=== PATIENT | female | born 1950 | race Caucasian/White ===

== ENCOUNTER → 2017-01-23 | Outpatient (REF) | payer MEDICARE, OTHER ==
[~2017-01-23] MED LIST: B12-1CHW PO; CALCTAB75 PO; DOXY75CA3 PO; KEFL500C7 PO; LEVO75TA4 PO; MULTCAP PO
[2017-01-23 19:35] LABS: BLOOD UREA NITROGEN 16 MG/DL (7-18); CREATININE FOR GFR 0.73 MG/DL (0.55-1.02); GLOMERULAR FILTRATION RATE > 60.0 (>45)
== END ==
LOC: M LABDRAW1 17:15
PROVIDERS: ATTEND Emergency Medicine
DX: D38.1 Neoplasm of uncertain behavior of trachea, bronchus and lung (principal)

== ENCOUNTER → 2017-02-07 | Outpatient (REF) | payer MEDICARE, OTHER ==
[2017-02-07 17:36] LABS: INR 0.91
== END ==
LOC: M LAB REF 16:55
PROVIDERS: ATTEND Internal Medicine Pulmonary Disease
DX: Z01.812 Encounter for preprocedural laboratory examination (principal); R91.8 Other nonspecific abnormal finding of lung field; Z79.899 Other long term (current) drug therapy

== ENCOUNTER → 2017-02-19 | Outpatient (CLI) | payer MEDICARE, OTHER ==
[~2017-02-19] MED LIST changes: +LIDOCAINE 1% MDV 20ML VIAL As Ordered ONE
--- NOTE | 2017-02-21 16:48 | REP ---
CT GUIDED RIGHT UPPER LOBE LUNG BIOPSY: The procedure was performed under the direct supervision of Dr. Deluca. The patient has a history of a large spiculated mass in the right apex measuring 7.1 x 6.2 cm seen on a previous CAT scan performed at [facility] on 01/25/2017. The risks and benefits of the procedure were explained to the patient and informed consent was obtained. The right upper lobe lung mass was localized using CT guidance. After the first scan to localize the mass was performed the patient became very claustrophobic and had to be taken out of the scanner. She stated that she would be unable to complete the procedure. The procedure was then discontinued. IMPRESSION: The patient was unable to complete the biopsy due to claustrophobia. Reviewed by ADOLFO Fernandez 02/21/2017 04:57 PEdited and Signed by Yayo Deluca MD 02/21/2017 07:53 P
== END | disposition home or self-care (01) ==
LOC: M RADPRO 09:15
PROVIDERS: ATTEND Internal Medicine Pulmonary Disease
DX: R91.8 Other nonspecific abnormal finding of lung field (principal); E03.9 Hypothyroidism, unspecified; F17.290 Nicotine dependence, other tobacco product, uncomplicated

== ENCOUNTER → 2017-03-15 | Outpatient (CLI) | payer MEDICARE, OTHER ==
[~2017-03-15] MED LIST changes: +ALPR0.25 PO; +FLUO20CA19 PO; +KEFL500C17 PO; -KEFL500C7 PO; +OXYC1TAB23 PO; +VITA1CAP7 PO
--- NOTE | 2017-03-15 10:27 | REP ---
PA CHEST X-RAY: Single view. HISTORY: The patient is status post needle biopsy right upper lobe lung mass. FINDINGS: There is a large paramediastinal mass on the right in the upper lung zone. There is no evidence of pneumothorax. The lung ashford are otherwise clear. IMPRESSION: Large mass in the right upper lung zone. No pneumothorax seen. Signed by Ralph Mccray MD 03/15/2017 05:10 P
--- NOTE | 2017-03-15 16:31 | REP ---
CT GUIDED RIGHT UPPER LOBE LUNG BIOPSY: The patient has a history of a large spiculated mass in the right apex measuring 7.1 x 6.2 cm seen on a previous CT scan performed at [facility] on 01/25/2017. A biopsy was attempted on 02/19/2017, however, the patient was unable to tolerate being in the scanner. The patient was referred back for biopsy. The risks and benefits of the procedure were explained to the patient and informed consent was obtained. The right upper lobe lung nodule was localized using CT guidance. The skin was prepped and draped in a sterile fashion. 1% lidocaine was used as a local anesthetic. Using CT guidance a 19/20-gauge coaxial needle biopsy system was inserted and advanced into the mass. Five core biopsy samples were obtained and sent to the lab. The patient tolerated the procedure well and there were no immediate complications. After the appropriate amount of monitored convalescence, the patient was discharged from the department. Reviewed by ADOLFO Fernandez 03/15/2017 04:40 PEdited and Signed by Ralph Mccray MD 03/15/2017 04:53 P
== END ==
LOC: M RADPRO 08:38
PROVIDERS: ATTEND Internal Medicine Pulmonary Disease
DX: C34.11 Malignant neoplasm of upper lobe, right bronchus or lung (principal); E03.9 Hypothyroidism, unspecified; Z79.899 Other long term (current) drug therapy; Z88.2 Allergy status to sulfonamides; Z87.891 Personal history of nicotine dependence

== ENCOUNTER → 2017-03-28 | Outpatient (CLI) | payer MEDICARE, OTHER ==
[~2017-03-28] MED LIST changes: -LIDOCAINE 1% MDV 20ML VIAL As Ordered ONE
== END ==
LOC: M PLARAD 09:35
PROVIDERS: ATTEND Internal Medicine Pulmonary Disease
DX: C34.11 Malignant neoplasm of upper lobe, right bronchus or lung (principal)

== ENCOUNTER → 2017-04-10 | Outpatient (CLI) | payer MEDICARE, OTHER ==
--- NOTE | 2017-04-11 19:18 | REP ---
Whole body PET CT scan: Pathology report of a CT guided needle biopsy of a large right upper lobe paramediastinal long mass identified adenocarcinoma. Whole body PET CT scanning is performed from skull base to the upper thighs. Neck and supraclavicular areas: There are no hypermetabolic foci. Chest: The large right paramediastinal long mass is hypermetabolic with a standard uptake value of 19.6. In addition, there is a hypermetabolic precarinal lymph node with a standard uptake value of 7.1. This node is enlarged with a diameter of 1.5 cm. Additionally, there is hypermetabolic uptake in a right hilar node with a standard uptake value of 4.9. This node is enlarged with a diameter of 1.0 cm. In addition , there is a hypermetabolic focus medially in the right middle lobe in the right infrahilar zone with a standard uptake value of 5.9. Abdomen, pelvis and upper thighs: There are no hypermetabolic foci. Specifically there are no adrenal or hepatic foci. Impression: The patient's known large right lung paramediastinal mass is hypermetabolic. There are two hypermetabolic mediastinal nodes. There is an hypermetabolic nodule in the right middle lobe. The study is performed with 10 mCi of F 18 FDG. Signed by Yayo Weiner MD 04/11/2017 07:10 P
== END ==
LOC: M PLARAD 10:28
PROVIDERS: ATTEND Internal Medicine Pulmonary Disease
DX: C34.11 Malignant neoplasm of upper lobe, right bronchus or lung (principal)
CPT/HCPCS: 78815; A9552

== ENCOUNTER → 2017-04-16 | Outpatient (REF) | payer MEDICARE, OTHER ==
[2017-04-16 16:17] LABS: INR 0.94
== END ==
LOC: M LAB REF 15:05
PROVIDERS: ATTEND Internal Medicine Medical Oncology
DX: C34.90 Malignant neoplasm of unspecified part of unspecified bronchus or lung (principal)

== ENCOUNTER → 2017-04-18 | Outpatient (CLI) | payer MEDICARE, OTHER ==
--- NOTE | 2017-04-19 09:52 | REP ---
MR BRAIN WITHOUT AND WITH CONTRAST: HISTORY: Lung cancer. CONTRAST: ProHance 14 mL. COMPARISON: 02/16/2009 There are no areas of abnormal signal intensity in the brain. There is no intraparenchymal hemorrhage, infarct, mass or midline shift. The sella turcica is partially empty. There is no abnormal enhancement. The ventricular system is normal in appearance. There is no extracerebral collection. Mucosal thickening is present in the sphenoid sinus. IMPRESSION: There is no intracranial lesion. Signed by Gerry Navarro MD 04/19/2017 09:54 A
== END ==
LOC: M RAD 16:55
PROVIDERS: ATTEND Internal Medicine Medical Oncology
DX: C34.90 Malignant neoplasm of unspecified part of unspecified bronchus or lung (principal)
CPT/HCPCS: 70553; A9576

== ENCOUNTER → 2017-05-03 | Outpatient (CLI) | payer MEDICARE, OTHER ==
--- NOTE | 2017-05-04 21:38 | RADONC ---
RADIATION ONCOLOGY CONSULTATION NOTE DATE: 05/03/2017 CHART NUMBER: [id number] DIAGNOSIS: Right lung cancer. STAGE: IIIB, T4N2M0. ECOG PERFORMANCE STATUS: 0 CONSULTATION NOTE: Ms. 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 HISTORY OF PRESENT ILLNESS: The patient's history dates back to earlier this year when in November or so she was in [place] and fell, hurting her right shoulder. She returned in December from [place] and was sent for physical therapy for what was thought to be traumatic injury of her right shoulder. Apparently an x-ray was undertaken which showed a lesion in the right apex of her lung. On 01/[address] the patient underwent a CT scan of the thorax which revealed a 7.1 x 6.2 cm spiculated large right apical mass. There was also adjacent continuous adenopathy in the right paratracheal, precarinal and hilar region. There was a question of a left adrenal nodule which measured 1.9 cm x 1.2 cm. On 03/15/[address]-guided right upper lobe mass biopsy and pathology revealed fragments of malignant cells consistent with non-small cell lung carcinoma favoring an adenocarcinoma. ROS1 gene rearrangement was found to be negative. The ALK gene rearrangement was negative. Study for PD-L1 (Keytruda) showed 90% expression. A PET scan was done on 04/11/2017 which confirmed hypermetabolic uptake in the large right paramediastinal mass with an SUV value of 19.6. There was also hypermetabolic uptake in a precarinal region as well as in the right hilar region. There was a second focus of malignancy with hypermetabolic activity measuring 5.9 in the right middle lobe. The patient was seen by Dr. Lee in medical oncology and is now being referred to us for consideration of definitive external beam radiation. Again, a pulmonary function test was done and showed an FEV-1 of 2.19. PAST MEDICAL HISTORY The patient's past medical history is positive for a herniorrhaphy in 2004 and hypothyroidism. ALLERGIES: 1. The patient is allergic to SULFA drugs. SOCIAL HISTORY: The patient has smoked one pack of cigarettes per day for 45 years. She does not abuse alcohol. FAMILY HISTORY: The patient's family history is positive for a mother with leukemia. REVIEW OF SYSTEMS: The patient's review of systems is positive for anxiety as well as some decreased energy and generalized weakness in her arms and legs. She says she gets a little short of breath when she goes upstairs. She reports that she has some loss of appetite and has lost a little weight. PHYSICAL EXAMINATION: The patient is a well-developed, well-nourished white female in no acute distress. HEENT exam is normocephalic, atraumatic. Extraocular movements are intact. There is no palpable cervical, supraclavicular, infraclavicular, axillary, or inguinal lymphadenopathy present. Lungs are clear to auscultation and percussion. Heart has a regular rate and rhythm. Abdomen is benign with no hepatosplenomegaly, masses, or tenderness. Skeletal examination reveals no tenderness to pressure or percussion of the bony skeleton. Extremities reveal no clubbing, cyanosis, or edema. Neurologic exam is grossly intact, as is the remainder of the physical examination. IMAGING STUDIES: I have personally reviewed the patient's PET CT scan done 04/11/2017, which shows the above findings of hypermetabolic activity. ASSESSMENT: Clearly, the patient is a candidate for external beam radiation therapy and I have so informed her. I have discussed with the patient in detail the potential benefits as well as possible acute and chronic sequelae of external beam radiation therapy. We have discussed logistics of treatment planning, simulation and subsequent fractionated daily radiation treatments. I have scheduled the patient for the next available simulation slot and radiation treatments will begin subsequently. Thank you for allowing us to participate in the care of this very pleasant woman. If I could be of any further assistance or provide you with any information, please feel free to contact me at anytime. cc: MD Milady Duarte PA A. Melynne Youngblood, MD
== END ==
LOC: M ONCR 08:53
PROVIDERS: ATTEND Radiology Radiation Oncology
DX: C34.90 Malignant neoplasm of unspecified part of unspecified bronchus or lung (principal)

== ENCOUNTER → 2017-05-04 | Outpatient (CLI) | payer MEDICARE, OTHER ==
--- NOTE | 2017-05-04 11:43 | REP ---
NUCLEAR LUNG DIFFERENTIAL VENTILATION AND PERFUSION SCAN: Following the intravenous administration of 1.0 mCi of technetium-99m tagged MAA and the inhalation of 2 mCi of technetium-99m DTPA aerosol multiple images of the lungs are obtained in the anterior and posterior projections. Scattered subsegmental matching ventilation and perfusion defects are seen in the right lung with no areas of V/Q mismatch. Differential counts were obtained in the upper, middle, and lower thirds of each lung. The mean perfusion of the left lung is 51.2% and of the right lung 48.8%. The mean ventilation of the left lung is 48.2% and of the right lung is 41.8%. Signed by Yayo Deluca MD 05/04/2017 11:58 A
== END ==
LOC: M RAD 07:56
PROVIDERS: ATTEND Radiology Radiation Oncology
DX: C34.90 Malignant neoplasm of unspecified part of unspecified bronchus or lung (principal)
CPT/HCPCS: 78598; A9540; A9567

== ENCOUNTER 2017-05-07 07:56 | Day surgery (SDC) | payer MEDICARE, OTHER ==
--- NOTE | 2017-05-06 07:03 | HPE ---
DATE OF ADMISSION: 05/07/2017 HISTORY AND CHIEF COMPLAINT: Mrs. Kay is a 67-year-old lady who has had progressive drooping of upper eyelids over several days. This is affecting her vision and visual field. She is being admitted to have levator aponeurosis resection, advancement and reattachment with blepharoplasty of both upper eyelids under local anesthetic with monitored sedation. PAST OCULAR HISTORY: Please see history of present illness. Blepharitis, nuclear cataracts, dry eye syndrome, borderline open glaucoma. PAST MEDICAL HISTORY AND OPERATIVE MEDICAL EVALUATION AND ASSESSMENT: Please see the report by REID Avelar. Hypothyroid, malignant neoplasm of right upper lobe of lung. MEDICATIONS: Please refer to the report by Milady Meyer - fluoxetine - Xanax - oxycodone/acetaminophen - vitamin D - levothyroxine ALLERGIES: Please refer to the medical report, SULFA. FAMILY HISTORY: Noncontributory with respect to eye disease. SOCIAL HISTORY: Nonsmoker. EXAMINATION: Vision with current glasses: Right eye: 20/40 - 1, left eye: 20/40 -2. Intraocular pressure by Goldmann tonometry: Right eye: 11 mmHg. Left eye: 12 mmHg. Pupils: Both eyes: Round, regular and reactive to light. Extraocular movements: Full. External examination: Use of frontalis muscles muscle++. Myogenic ptosis of both eyes. Marginal reflex distance: Right eye: 1 mm, left eye: 0.5 mm. Levator function: Both eyes: 12 mm. No lid lagophthalmos present. Involutional dermatochalasis upper eyelids both eyes: Margin to brow skin measurement: Both eyes: 32 mm. Slit lamp examination: Cornea: Both eyes: 1+ superficial punctate keratitis. Anterior chamber: Both eyes: Normal. Lens: Both eyes: 1+ nuclear scleotic cataract. Visual field ptosis, superior visual field: Untaped ptosis visual field right eye: 40-45 degrees superior visual field loss, left eye: 40-45 degrees superior visual field loss. Ptosis visual field taped: Both eyes: Full superior visual field. IMPRESSION: 1. Myogenic ptosis upper eyelids both eyes affecting vision and visual field. 2. Involutional dermatochalasis upper eyelids both eyes. PLAN: I discussed the findings with Mrs. Kay. I explained to her that the levator muscle and aponeurosis is degenerating, which is causing the upper eyelid to droop worse on the left eye than on the left. This is interfering with her vision and visual field. In addition to this, the excess skin on dermatochalasis is exacerbating the droop of the upper eyelids. I recommended a levator aponeurosis resection, advancement and reattachment with a blepharoplasty of both upper eyelids. I explained to Mrs. Kay the procedure, benefit, expected outcomes, risks and alternatives to surgery. I mentioned that the risk of surgery includes but is not limited to surgery is not guaranteed, bleeding, infection, inflammation, scarring, over correction, under correction, recurrence , injury to the globe or the orbit causing impaired vision and eye movement. Mrs. Kay elected to have the said surgery performed. I obtained an informed consent. I advised her to stop any aspirin type products and nonsteroidal anti-inflammatory medications 1 week preoperatively. REID Avelar and her primary care physician will recommend other preoperative and postoperative medications. CHRISS
[~2017-05-07] VITALS: Ht 162.6 cm; Wt 69.4 kg
[2017-05-07] MEDS ORDERED: LR 1,000 ML IV ONE (08:00)
[2017-05-07] MEDS ORDERED: dexameTHASONE 4 MG/ML 1ML VIAL (J1100) IV ONE (08:00)
[2017-05-07] MEDS ORDERED: ACETAMINOPHEN TAB 650MG DOSE (2X325MG) PO PRN (08:15)
[2017-05-07] MEDS ORDERED: TOBRADEX OPHTH OINT 3.5 GM As Ordered ONE (09:27)
[2017-05-07] MEDS ORDERED: LIDOCAINE W/EPINEPHRINE 1% 20ML VIAL As Ordered ONE (09:27)
[2017-05-07] MEDS ORDERED: CIPROFLOXACIN 0.3% OPHTH OINTMENT As Ordered ONE (09:27)
[2017-05-07] MEDS ORDERED: BUPIVACAINE 0.75% 10 ML VIAL As Ordered ONE (09:28)
[2017-05-07] MEDS ORDERED: POVIDONE-IODINE 5% OPHTH PREP SOL 30ML As Ordered ONE (09:28)
[2017-05-07] MEDS ORDERED: HYALURONIDASE 200 UNITS/ML VIAL (J3470) As Ordered ONE (09:28)
[2017-05-07] MEDS ORDERED: LIDOCAINE 2% INJ 100 MG/5 ML SDV (FOR ANES.) As Ordered ONE (09:43)
[2017-05-07] MEDS ORDERED: PROPOFOL 200 MG/20 ML VIAL As Ordered ONE (09:43)
[2017-05-07] MEDS ORDERED: fentaNYL 100 MCG/2 ML INJECTION (J3010) As Ordered ONE (09:43)
[2017-05-07] MEDS ORDERED: MIDAZOLAM INJ 2 MG/2 ML VIAL (J2250) As Ordered ONE (09:43)
[2017-05-07] MEDS ORDERED: SODIUM BICARBONATE 4.2% INJ 10 ML SYRINGE As Ordered ONE (10:21)
[2017-05-07] MEDS ORDERED: TETRACAINE 0.5% OPHTH SOLN 4ML As Ordered ONE (10:41)
--- NOTE | 2017-05-07 12:38 | RO ---
DATE OF PROCEDURE: 05/07/2017 SURGEON: Amador Spivey MD ARMORING MACHINE OPERATOR: PREOPERATIVE DIAGNOSIS: 1. Involutional ptosis upper eyelid both eyes, affecting vision and visual field. 2. Involutional dermatochalasis upper eyelid both eyes. POSTOPERATIVE DIAGNOSIS: 1. Involutional ptosis upper eyelid both eyes, affecting vision and visual field. 2. Involutional dermatochalasis upper eyelid both eyes, marked fatty infiltration of levator muscle, Herings phenomenon positive, thining of aponeurosis ANESTHESIA: Local with monitored sedation. OPERATIVE PROCEDURE: 1. Levator aponeurosis resection, advancement and reattachment of upper eyelid both eyes. 2. Blepharoplasty upper eyelid both eyes. DESCRIPTION OF OPERATION: The patient was brought into the operating room and positioned appropriately. A surgical marking pen was used to monika the upper lid crease height at 9 mm using a pair of calipers and then the upper incision line was marked leaving 20 mm of skin from the eyebrow to the lash line. After adequate sedation, local anesthetic consisting of Xylocaine 1% mixed 50/50 with Marcaine 0.75% and epinephrine 1:200,000 with 0.5 mL of 8.4% sodium bicarbonate and 200 units of Vitrase per 10 mL of local anesthetic, 2.5 mL was injected subcutaneously along the incision lines and superior border of the tarsus of both upper eyelids. The full face was prepped with Betadine and draped in the usual sterile manner. Topical tetracaine 0.5% eye drops were instilled into both eyes. A #6-0 silk traction suture was placed at the lid margin just nasal to the pupils and both upper eyelids were retracted inferiorly. Starting with the right upper eyelid then followed by the left upper eyelid, the skin incision was made with a #15 blade. Good hemostasis was ensured throughout the procedure using bipolar cautery. The orbicularis muscle was identified and incised at the temporal margin and then dissected down to the suborbicularis plane. The myocutaneous flap was then excised from temporal to medial. The orbital septum was identified and incised just inferior to the superior orbital rim and the incision was extended medially and laterally. The medial and central orbital fat pads were identified and retracted to reveal the levator muscle and aponeurosis which was detached from its normal position on the superior tarsus. The levator muscle had marked fatty infiltration. The aponeurosis was thinned. The superior surface of the tarsus was exposed. A double-armed 5-0 nylon suture was used to reattach the levator aponeurosis to the tarsus. The suture was tied temporarily. The patient was sat up and the lid margin contour and marginal reflex distance was checked for both upper eyelids. The 5-0 nylon suture was adjusted until the marginal reflex distance was 3 mm. The patient was then placed supine and the 5-0 nylon suture was tied and cut. Hemostasis was checked. The skin and orbicularis layer was then closed with interrupted and continuous 6-0 plain suture. There were no complications during the surgery. At the end of the procedure, a combination of Ciloxan ophthalmic ointment mixed with TobraDex ophthalmic ointment was applied to the incision and the sutures. A cold saline compress was placed over the closed both upper eyelids. The patient left for the recovery room in good condition. Specimens were sent to pathology. CHRISS
[2017-05-07 13:21] VITALS: BP 116/58
== END 2017-05-07 13:43 | disposition home or self-care (01) ==
LOC: M SDC 07:56
PROVIDERS: ATTEND Ophthalmology
DX: H02.423 Myogenic ptosis of bilateral eyelids (principal); H02.831 Dermatochalasis of right upper eyelid; H02.834 Dermatochalasis of left upper eyelid; E03.9 Hypothyroidism, unspecified; F32.9 Major depressive disorder, single episode, unspecified; F41.9 Anxiety disorder, unspecified; Z79.899 Other long term (current) drug therapy; Z85.118 Personal history of other malignant neoplasm of bronchus and lung; Z88.2 Allergy status to sulfonamides; F17.290 Nicotine dependence, other tobacco product, uncomplicated
CPT/HCPCS: 15823; 67904; 88302; J1100; J2250; J3010; J3470

== ENCOUNTER 2017-05-07 14:04 | Outpatient (RCR) | payer MEDICARE, OTHER ==
--- NOTE | 2017-05-08 08:17 | RADONC ---
RADIATION ONCOLOGY SIMULATION NOTE DATE: 05/07/2017 CHART NUMBER: [id number] Ms. Kay was taken to the CT scan for CT simulation of her lung field. CT was accomplished without difficulty or discomfort. Radiation treatment planning is underway and radiation treatments will begin subsequently. An immobilization device was created and will be used throughout the course of treatment. I was physically present throughout the course of CT simulation.
== END 2017-05-10 ==
LOC: M ONCR 14:04
PROVIDERS: ATTEND Radiology Radiation Oncology
DX: C34.11 Malignant neoplasm of upper lobe, right bronchus or lung (principal)

== ENCOUNTER → 2017-05-07 | Outpatient (CLI) | payer MEDICARE, OTHER | LOC: M RAD 13:52 | PROVIDERS: ATTEND Radiology Radiation Oncology | DX: C34.90 Malignant neoplasm of unspecified part of unspecified bronchus or lung (principal) ==

== ENCOUNTER 2017-05-11 14:09 | Outpatient (RCR) | payer MEDICARE, OTHER ==
--- NOTE | 2017-05-22 06:48 | RADONC ---
RADIATION ONCOLOGY PROGRESS NOTE DATE: 05/21/2017 CHART NUMBER: [id number] Ms. Kay is presently at a dose of 540 cGy to her right lung and is tolerating treatments quite well at this point with no complaints related to her radiation therapy. She is having no increased shortness of breath or difficulty swallowing. REVIEW OF SYSTEMS: The patient's review of systems is largely noncontributory. Denies nausea, vomiting, fevers, chills, night sweats, diplopia, headaches, anxiety or depression, anorexia, weight loss, visual disturbances, chest pain, urinary or bowel difficulties, bone pain, or neurological problems. PHYSICAL EXAMINATION: The patient's skin is in good condition with no evidence of radiation change present. There is no moist or dry desquamation. The remainder of her physical exam remains unchanged. Ms. Kay is tolerating treatments quite well and radiation will continue as scheduled.
--- NOTE | 2017-05-29 05:50 | RADONC ---
RADIATION ONCOLOGY PROGRESS NOTE: DATE: 05/28/2017 CHART NUMBER: [id number] Ms. Kay is presently at a dose of 1440 cGy to her right lung and is complaining of a sore throat at this time. She reports that she does not have it now but it is tender when swallowing. The patient's review of systems is positive for her sore throat but is otherwise noncontributory. She denies nausea, vomiting, fevers, chills, night sweats, diplopia, headaches, anxiety or depression, anorexia, weight loss, visual disturbances, chest pain, urinary or bowel difficulties, bone pain, or neurological problems. PHYSICAL EXAMINATION: The patient's skin is in excellent condition with no evidence of radiation change present. There is no moist or dry desquamation. The remainder of her physical exam remains unchanged. Ms. Kay is tolerating treatments quite well and radiation will continue as scheduled.
--- NOTE | 2017-06-04 13:15 | RADONC ---
RADIATION ONCOLOGY PROGRESS NOTE DATE: 06/04/2017 CHART NUMBER: [id number] Ms. Sarmiento is presently at a dose of 2340 cGy to her right lung and is tolerating treatments quite well at this point with no complaints related to her radiation therapy. She is having no significant difficulties other than some esophagitis. She also has some acid reflux. REVIEW OF SYSTEMS: The patient's review of systems is positive for esophagitis and acid reflux but is otherwise noncontributory. She denies nausea, vomiting, fevers, chills, night sweats, diplopia, headaches, anxiety or depression, anorexia, weight loss, visual disturbances, chest pain, urinary or bowel difficulties, bone pain, or neurological problems. PHYSICAL EXAMINATION: The patient's skin is in good condition with no evidence of moist or dry desquamation. The remainder of her physical examination remains unchanged. Ms. Sarmiento is tolerating treatments quite well, and radiation will continue as scheduled.
== END 2017-06-09 ==
LOC: M ONCR 14:09
PROVIDERS: ATTEND Radiology Radiation Oncology
DX: C34.11 Malignant neoplasm of upper lobe, right bronchus or lung (principal)

== ENCOUNTER → 2017-05-17 | Outpatient (REF) | payer MEDICARE, OTHER | LOC: M LAB REF 10:48 | PROVIDERS: ATTEND Internal Medicine Medical Oncology | DX: C34.90 Malignant neoplasm of unspecified part of unspecified bronchus or lung (principal) ==

== ENCOUNTER → 2017-07-19 | Outpatient (REF) | payer MEDICARE, OTHER | LOC: M LAB REF 13:53 | PROVIDERS: ATTEND Internal Medicine Medical Oncology | DX: C34.90 Malignant neoplasm of unspecified part of unspecified bronchus or lung (principal); Z79.899 Other long term (current) drug therapy ==

== ENCOUNTER → 2017-08-15 | Outpatient (CLI) | payer MEDICARE, OTHER ==
--- NOTE | 2017-08-15 11:43 | RADONC ---
RADIATION ONCOLOGY FOLLOWUP NOTE DATE: 08/15/2017 CHART NUMBER: [id number] DIAGNOSIS: Right lung cancer. STAGE: IIIB, T4N2M0. ECOG PERFORMANCE STATUS: 0. FOLLOWUP NOTE: Ms. 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 The patient presents today reporting that she is continuing with her systemic therapy. She reports that she has two "large chemos to go". The patient's review of systems is positive for some fatigue. It is also positive for some anorexia. It is otherwise noncontributory. She denies nausea, vomiting, fevers, chills, night sweats, diplopia, headaches, anxiety or depression, anorexia, weight loss, visual disturbances, chest pain, urinary or bowel difficulties, bone pain, or neurological problems. PHYSICAL EXAMINATION: The patient is a well-developed, well-nourished, female in no acute distress. HEENT exam is normocephalic, atraumatic. Extraocular movements are intact. There is no palpable cervical, supraclavicular, infraclavicular, axillary, or inguinal lymphadenopathy present. Lungs are clear to auscultation and percussion. Heart has a regular rate and rhythm. Abdomen is benign with no hepatosplenomegaly, masses, or tenderness. Skeletal examination reveals no tenderness to pressure or percussion of the bony skeleton. Extremities reveal no clubbing, cyanosis, or edema. Neurologic exam is grossly intact, as is the remainder of the physical examination. ASSESSMENT: The patient is clinically doing well at this point. She is presently under the care of her medical oncologist and undergoing systemic therapy. I have scheduled the patient to see me again in 3 months for further followup. She will also continue to be followed by her other physicians in the meantime. cc: MD Milady Duarte PA A. Melynne Youngblood, MD
== END ==
LOC: M ONCR 10:56
PROVIDERS: ATTEND Radiology Radiation Oncology
DX: C34.11 Malignant neoplasm of upper lobe, right bronchus or lung (principal)

== ENCOUNTER → 2017-08-29 | Outpatient (REF) | payer MEDICARE, OTHER ==
[2017-08-29 19:29] LABS: FREE T4 1.26 NG/DL (0.76-1.46)
== END ==
LOC: M LAB REF 18:17
DX: C34.90 Malignant neoplasm of unspecified part of unspecified bronchus or lung (principal)
CPT/HCPCS: 84443

== ENCOUNTER → 2017-09-27 | Outpatient (REF) | payer MEDICARE, OTHER ==
[2017-09-27 18:29] LABS: FREE T4 1.52 NG/DL (0.76-1.46)
== END ==
LOC: M LAB REF 16:46
DX: C34.90 Malignant neoplasm of unspecified part of unspecified bronchus or lung (principal); E03.9 Hypothyroidism, unspecified
CPT/HCPCS: 84443

== ENCOUNTER → 2017-10-25 | Outpatient (REF) | payer MEDICARE, OTHER ==
[2017-10-25 18:42] LABS: FREE T4 1.46 NG/DL (0.76-1.46); THYROID STIMULATING HORMONE 0.614 uIU/ML (0.358-3.740)
== END ==
LOC: M LAB REF 17:07
DX: C34.90 Malignant neoplasm of unspecified part of unspecified bronchus or lung (principal)
CPT/HCPCS: 84443

== ENCOUNTER → 2017-11-02 | Outpatient (CLI) | payer MEDICARE, OTHER ==
[~2017-11-02] MED LIST changes: -ALPR0.25 PO; -B12-1CHW PO; -CALCTAB75 PO; -DOXY75CA3 PO; -FLUO20CA19 PO; +ISOVUE-370 76% 100ML VIAL (Q9967) As Ordered; -KEFL500C17 PO; -LEVO75TA4 PO; -MULTCAP PO; -OXYC1TAB23 PO; -VITA1CAP7 PO
== END ==
LOC: M RAD 10:53
DX: C34.11 Malignant neoplasm of upper lobe, right bronchus or lung (principal); J90 Pleural effusion, not elsewhere classified; E27.8 Other specified disorders of adrenal gland
CPT/HCPCS: Q9967

== ENCOUNTER → 2017-11-07 | Outpatient (CLI) | payer MEDICARE, OTHER | LOC: M ONCR 10:46 | DX: C34.11 Malignant neoplasm of upper lobe, right bronchus or lung (principal) | CPT/HCPCS: G0463 ==

== ENCOUNTER → 2017-11-08 | Outpatient (REF) | payer MEDICARE, OTHER ==
[2017-11-08 18:59] LABS: FREE T4 1.07 NG/DL (0.76-1.46)
== END ==
LOC: M LAB REF 17:27
DX: C34.90 Malignant neoplasm of unspecified part of unspecified bronchus or lung (principal); E03.9 Hypothyroidism, unspecified
CPT/HCPCS: 84443

== ENCOUNTER → 2018-01-10 | Outpatient (REF) | payer MEDICARE, OTHER ==
[2018-01-10 17:37] LABS: INR 0.99; PROTHROMBIN TIME 13.2 SECONDS (12.4-14.5)
[2018-01-10 17:38] LABS: PARTIAL THROMBOPLASTIN TIME 23.8 SECONDS (26.8-37.9)
== END ==
LOC: M LAB REF 16:51
DX: C77.1 Secondary and unspecified malignant neoplasm of intrathoracic lymph nodes (principal); C34.11 Malignant neoplasm of upper lobe, right bronchus or lung; Z79.01 Long term (current) use of anticoagulants
CPT/HCPCS: 85610

== ENCOUNTER → 2018-01-11 | Outpatient (REF) | payer MEDICARE, OTHER | LOC: M LAB REF 13:33 | DX: N39.0 Urinary tract infection, site not specified (principal) | CPT/HCPCS: 87186 ==

== ENCOUNTER → 2018-01-21 | Outpatient (CLI) | payer MEDICARE, OTHER ==
[~2018-01-21] MED LIST changes: -ISOVUE-370 76% 100ML VIAL (Q9967) As Ordered; +LIDOCAINE 1% MDV 20ML VIAL As Ordered; +MIDAZOLAM INJ 2 MG/2 ML VIAL (J2250) As Ordered; +ceFAZolin 1GM INJ (J0690 PER 500MG) As Ordered; +fentaNYL 100 MCG/2 ML INJECTION (J3010) As Ordered
== END | disposition home or self-care (01) ==
LOC: M IRPRO 09:24
DX: C34.90 Malignant neoplasm of unspecified part of unspecified bronchus or lung (principal)
CPT/HCPCS: 36561

== ENCOUNTER → 2018-01-24 | Outpatient (REF) | payer MEDICARE, OTHER | LOC: M LAB REF 17:47 | DX: Z79.899 Other long term (current) drug therapy (principal); C77.1 Secondary and unspecified malignant neoplasm of intrathoracic lymph nodes; C34.11 Malignant neoplasm of upper lobe, right bronchus or lung | CPT/HCPCS: 84443 ==

== ENCOUNTER → 2018-02-07 | Outpatient (REF) | payer MEDICARE, OTHER | LOC: M LAB REF 19:51 | DX: C34.11 Malignant neoplasm of upper lobe, right bronchus or lung (principal); C77.1 Secondary and unspecified malignant neoplasm of intrathoracic lymph nodes; Z79.899 Other long term (current) drug therapy | CPT/HCPCS: 84443 ==

== ENCOUNTER → 2018-02-21 | Outpatient (REF) | payer MEDICARE, OTHER ==
[2018-02-21 17:50] LABS: FREE T4 1.03 NG/DL (0.76-1.46)
== END ==
LOC: M LAB REF 17:02
DX: Z79.899 Other long term (current) drug therapy (principal)
CPT/HCPCS: 84443

== ENCOUNTER → 2018-02-26 | Outpatient (CLI) | payer MEDICARE, OTHER | LOC: M ONCR 13:03 | DX: C34.11 Malignant neoplasm of upper lobe, right bronchus or lung (principal) | CPT/HCPCS: G0463 ==

== ENCOUNTER → 2018-04-04 | Outpatient (REF) | payer MEDICARE, OTHER ==
[2018-04-04 18:06] LABS: FREE T4 1.14 NG/DL (0.76-1.46)
== END ==
LOC: M LAB REF 17:17
DX: C34.11 Malignant neoplasm of upper lobe, right bronchus or lung (principal); C77.1 Secondary and unspecified malignant neoplasm of intrathoracic lymph nodes; Z79.899 Other long term (current) drug therapy
CPT/HCPCS: 84443

== ENCOUNTER → 2018-05-02 | Outpatient (REF) | payer MEDICARE, OTHER ==
[2018-05-02 17:24] LABS: FREE T4 1.08 NG/DL (0.76-1.46)
== END ==
LOC: M LAB REF 16:39
DX: E03.9 Hypothyroidism, unspecified (principal)
CPT/HCPCS: 84443

== ENCOUNTER → 2018-05-16 | Outpatient (REF) | payer MEDICARE, OTHER ==
[2018-05-16 17:53] LABS: FREE T4 1.11 NG/DL (0.76-1.46)
== END ==
LOC: M LAB REF 17:04
DX: C34.11 Malignant neoplasm of upper lobe, right bronchus or lung (principal); C77.1 Secondary and unspecified malignant neoplasm of intrathoracic lymph nodes; Z79.899 Other long term (current) drug therapy
CPT/HCPCS: 84443

== ENCOUNTER → 2018-05-21 | Outpatient (CLI) | payer MEDICARE, OTHER | LOC: M PLARAD 11:25 | DX: C34.91 Malignant neoplasm of unspecified part of right bronchus or lung (principal); J90 Pleural effusion, not elsewhere classified; Z92.3 Personal history of irradiation | CPT/HCPCS: 78815 ==

== ENCOUNTER → 2018-07-04 | Outpatient (REF) | payer MEDICARE, OTHER | LOC: M LAB REF 11:50 | DX: Z01.419 Encounter for gynecological examination (general) (routine) without abnormal findings (principal) ==

== ENCOUNTER → 2018-07-04 | Outpatient (REF) | payer MEDICARE, OTHER ==
[2018-07-06 14:10] LABS: HPV HYBRID CAPTURE II Negative (Negative)
== END ==
LOC: M LAB REF 14:02
DX: Z01.419 Encounter for gynecological examination (general) (routine) without abnormal findings (principal)
CPT/HCPCS: 87070

== ENCOUNTER → 2018-08-14 | Outpatient (CLI) | payer MEDICARE, OTHER | LOC: M ONCR 11:00 | DX: C34.90 Malignant neoplasm of unspecified part of unspecified bronchus or lung (principal) | CPT/HCPCS: G0463 ==

== ENCOUNTER → 2018-08-26 | Outpatient (REF) | payer MEDICARE, OTHER ==
[~2018-08-26] MED LIST changes: +ALPR0.25 PO; +AMOX-CLAV; +B12-1CHW PO; +CALCTAB75 PO; +CIPR-249 PO; +DICY20TA11 PO; +DOXY75CA3 PO; +FLAG500T PO; +FLUC10TA PO; +FLUO20CA19 PO; +KEFL500C17 PO; +LEVO75TA4 PO; -LIDOCAINE 1% MDV 20ML VIAL As Ordered; -MIDAZOLAM INJ 2 MG/2 ML VIAL (J2250) As Ordered; +MULTCAP PO; +OXYC1TAB23 PO; +VITA1CAP7 PO; +ZOFR4TAB14 PO; -ceFAZolin 1GM INJ (J0690 PER 500MG) As Ordered; -fentaNYL 100 MCG/2 ML INJECTION (J3010) As Ordered
[2018-08-26 19:15] LABS: BLOOD UREA NITROGEN 12 MG/DL (7-18); CALCIUM LEVEL 8.9 MG/DL (8.8-10.2); CARBON DIOXIDE LEVEL 31 MEQ/L (21-32); CHLORIDE LEVEL 105 MEQ/L (98-107); CREATININE FOR GFR 0.93 MG/DL (0.55-1.30); GLOMERULAR FILTRATION RATE > 60.0 (>45); GLUCOSE, FASTING 90 MG/DL (70-100); POTASSIUM SERUM 4.5 MEQ/L (3.5-5.1); SODIUM LEVEL 142 MEQ/L (136-145)
[2018-08-26 19:20] LABS: BASO # 0.1 10^3/uL (0.0-0.2); BASO % 1.1 % (0.0-1.0); EOS # 0.3 10^3/uL (0.0-0.50); HEMATOCRIT 40.3 % (36.0-47.0); HEMOGLOBIN 12.4 g/dl (12.0-15.5); LYMPH % 11.7 % (24.0-44.0); MEAN CORPUSCULAR HGB CONC 30.8 g/dl (32.0-36.5); MEAN CORPUSCULAR VOLUME 84.5 fl (80.0-96.0); MONO # 0.6 10^3/uL (0.0-0.8); MONO % 6.9 % (0.0-5.0); NEUTROPHILS # 6.4 10^3/uL (1.8-7.7); NEUTROPHILS % 75.9 % (36.0-66.0); PLATELET COUNT, AUTOMATED 424 10^3/uL (150-450); RED BLOOD COUNT 4.77 10^6/uL (4.00-5.40); WHITE BLOOD COUNT 8.4 10^3/uL (4.0-10.0)
== END ==
LOC: M LAB REF 18:47 → M LABDRWAD 18:47
PROVIDERS: ATTEND Physician Assistant
DX: R10.32 Left lower quadrant pain (principal)

== ENCOUNTER → 2018-08-27 | Outpatient (REF) | payer MEDICARE, OTHER | LOC: M LAB REF 19:32 | PROVIDERS: ATTEND Physician Assistant | DX: R10.32 Left lower quadrant pain (principal) ==

== ENCOUNTER 2018-08-29 11:27 | Emergency (ER) | payer MEDICARE, OTHER ==
[~2018-08-29] VITALS: Ht 157.5 cm; Wt 69.5 kg
[~2018-08-29 11:27] MED LIST changes: -AMOX-CLAV; -CIPR-249 PO; -DICY20TA11 PO; -FLAG500T PO; -ZOFR4TAB14 PO
[2018-08-29] MEDS ORDERED: AMOX-CLAV (11:35)
[2018-08-29] MEDS ORDERED: ONDANSETRON 4MG/2ML VIAL (J2405) IV ONE (12:15)
[2018-08-29] MEDS ORDERED: NS 1,000 ML IV ONE (12:15)
[2018-08-29] MEDS ORDERED: KETOROLAC 30 MG/ML VIAL (J1885) IV ONE (12:15)
[2018-08-29 12:38] LABS: BASO # 0.1 10^3/uL (0.0-0.2); BASO % 0.6 % (0.0-1.0); EOS # 0.3 10^3/uL (0.0-0.50); EOS % 2.6 % (0.0-3.0); HEMATOCRIT 41.3 % (36.0-47.0); HEMOGLOBIN 13.3 g/dl (12.0-15.5); LYMPH # 0.7 10^3/uL (1.5-4.5); LYMPH % 6.3 % (24.0-44.0); MEAN CORPUSCULAR HEMOGLOBIN 26.2 pg (27.0-33.0); MEAN CORPUSCULAR HGB CONC 32.2 g/dl (32.0-36.5); MEAN CORPUSCULAR VOLUME 81.5 fl (80.0-96.0); MONO # 0.7 10^3/uL (0.0-0.8); MONO % 6.2 % (0.0-5.0); NEUTROPHILS # 9.4 10^3/uL (1.8-7.7); NEUTROPHILS % 83.9 % (36.0-66.0); PLATELET COUNT, AUTOMATED 407 10^3/uL (150-450); RED BLOOD COUNT 5.07 10^6/uL (4.00-5.40); WHITE BLOOD COUNT 11.2 10^3/uL (4.0-10.0)
[2018-08-29 13:17] LABS: ALBUMIN 3.8 GM/DL (3.2-5.2); ALT/SGPT 10 U/L (12-78); BILIRUBIN,TOTAL 0.3 MG/DL (0.2-1.0); BLOOD UREA NITROGEN 13 MG/DL (7-18); CARBON DIOXIDE LEVEL 29 MEQ/L (21-32); CHLORIDE LEVEL 102 MEQ/L (98-107); CREATININE FOR GFR 0.89 MG/DL (0.55-1.30); GLOMERULAR FILTRATION RATE > 60.0 (>45); GLUCOSE, FASTING 104 MG/DL (70-100); LIPASE 167 U/L (73-393); POTASSIUM SERUM 4.4 MEQ/L (3.5-5.1); SODIUM LEVEL 137 MEQ/L (136-145); TOTAL PROTEIN 7.4 GM/DL (6.4-8.2)
[2018-08-29] MEDS ORDERED: ISOVUE-370 76% 100ML VIAL (Q9967) As Ordered ONE (13:44)
--- NOTE | 2018-08-29 14:20 | REP ---
CT abdomen and pelvis with IV without oral contrast: History: Diarrhea. Left lower quadrant abdomen pain. Question diverticulitis. The patient gives a history of lung carcinoma. No comparison abdomen CT. Comparison is made with CT images obtained as part of the PET/CT study from May 21, 2018. CT contrast dose: 100 mL of intravenous Isovue 370. CT findings: There is a small to moderate-sized right pleural effusion. This is somewhat improved from the May 21, 2018 prior imaging. No focal hepatic lesion is seen. No adrenal mass is observed. Pancreas is unremarkable. No splenic abnormalities observed. The gallbladder has a normal appearance. The kidneys are morphologically intact and enhance symmetrically. Normal caliber aorta is seen. There are scattered normal-sized periaortic lymph nodes. There is a moderate amount of stool in the colon particularly the right colon and in the sigmoid colon segments. There is mural thickening surrounding stool dilated loop of sigmoid colon. No definite diverticulosis is seen. The mild mural thickening may reflect mild colitis, perhaps stercoral colitis. Uterine leiomyomatous changes are seen. Normal appendix is noted. No pelvic mass or adenopathy is seen. Impression: There is mural thickening over a fairly elongate segment of sigmoid colon. No diverticulosis is seen. The sigmoid colon contains a moderate amount of stool balls, question stercoral colitis or other colitis. There is moderate stool in the right colon as well. A small to moderate sized right pleural effusion is seen somewhat improved from the May 21, 2018 prior study. Normal appendix. Otherwise negative. Electronically Signed by Ralph Mccray MD 08/29/2018 03:12 P
[2018-08-29] MEDS ORDERED: FLAG500T PO (14:39)
[2018-08-29] MEDS ORDERED: CIPR-249 PO (14:39)
[2018-08-29] MEDS ORDERED: DICY20TA11 PO (14:43)
[2018-08-29] MEDS ORDERED: ZOFR4TAB14 PO (14:43)
[2018-08-29] MEDS ORDERED: metroNIDAZOLE (FLAGYL) 500 MG TAB PO ONE (14:45)
[2018-08-29] MEDS ORDERED: CIPROFLOXACIN 500 MG TAB PO ONE (14:45)
[2018-08-29 14:58] VITALS: BP 122/63
== END 2018-08-29 15:00 | disposition home or self-care (01) ==
LOC: M ED 11:27
DX: R10.32 Left lower quadrant pain (principal); R11.0 Nausea; R19.7 Diarrhea, unspecified; K52.9 Noninfective gastroenteritis and colitis, unspecified
CPT/HCPCS: 74177; 80053; 81001; 83690; 85025; 96374; 99284; J1885; J2405; Q9967

== ENCOUNTER → 2018-10-28 | Outpatient (REF) | payer MEDICARE, OTHER ==
[~2018-10-28] MED LIST changes: +AMOX-CLAV; +CIPR-249 PO; +DICY20TA11 PO; +FLAG500T PO; +ZOFR4TAB14 PO
[2018-10-28 12:43] LABS: BASO # 0.1 10^3/uL (0.0-0.2); BASO % 0.5 % (0.0-1.0); EOS # 0.6 10^3/uL (0.0-0.50); HEMATOCRIT 38.7 % (36.0-47.0); LYMPH # 0.8 10^3/uL (1.5-4.5); LYMPH % 8.1 % (24.0-44.0); MEAN CORPUSCULAR HEMOGLOBIN 25.8 pg (27.0-33.0); MONO # 0.7 10^3/uL (0.0-0.8); MONO % 7.2 % (0.0-5.0); NEUTROPHILS # 7.4 10^3/uL (1.8-7.7); NEUTROPHILS % 77.7 % (36.0-66.0); PLATELET COUNT, AUTOMATED 436 10^3/uL (150-450); RED BLOOD COUNT 4.66 10^6/uL (4.00-5.40); WHITE BLOOD COUNT 9.5 10^3/uL (4.0-10.0)
[2018-10-28 13:33] LABS: BLOOD UREA NITROGEN 15 MG/DL (7-18); CALCIUM LEVEL 9.4 MG/DL (8.8-10.2); CARBON DIOXIDE LEVEL 30 MEQ/L (21-32); CHLORIDE LEVEL 102 MEQ/L (98-107); CREATININE FOR GFR 0.85 MG/DL (0.55-1.30); FREE T4 1.71 NG/DL (0.76-1.46); GLOMERULAR FILTRATION RATE > 60.0 (>45); GLUCOSE, FASTING 93 MG/DL (70-100); POTASSIUM SERUM 4.2 MEQ/L (3.5-5.1); SODIUM LEVEL 139 MEQ/L (136-145)
== END ==
LOC: M LABDRWAD 12:11
PROVIDERS: ATTEND Physician Assistant Medical
DX: R19.7 Diarrhea, unspecified (principal)

== ENCOUNTER → 2018-11-01 | Outpatient (REF) | payer MEDICARE, OTHER | LOC: M LAB REF 13:04 | PROVIDERS: ATTEND Physician Assistant Medical | DX: R35.0 Frequency of micturition (principal) ==

== ENCOUNTER → 2018-11-19 | Outpatient (CLI) | payer MEDICARE, OTHER ==
--- NOTE | 2018-11-19 19:40 | REP ---
Whole body PET CT scan for restaging of lung adenocarcinoma: Comparison is 05/21/2018. Whole-body scanning is performed from skull base to the upper thighs. Neck and supraclavicular areas: There are no hypermetabolic foci. This is unchanged. Chest: There is a right pleural effusion that has decreased size and appears to be loculated anteriorly in the upper lobe area and extends laterally and posteriorly in the mid and lower chest. The there is no radial labeling associated with the pleural effusion. There is right hilar and perihilar scarring unchanged. There is non hypermetabolic uptake within this scarring, as previously, maximal standard uptake value measuring 2.4. The there is no mediastinal or left hilar uptake. There is a 1 cm focus of borderline hypermetabolic uptake at the costovertebral angle of the left eighth rib with the standard uptake value of 3.8, not present previously and of uncertain significance. There are no associated lytic, blastic or destructive skeletal changes. There are no other foci in the chest. Abdomen, pelvis and upper thighs: There is hypermetabolic uptake in the medial limb of the left adrenal as an interval change with a standard uptake value of 4.2. There is hypermetabolic uptake diffusely throughout the descending colon, sigmoid colon and rectosigmoid colon as an interval change. The standard uptake value measuring 17.23. This may represent colitis. There are no hepatic foci. There is nonspecific bowel uptake otherwise. There are no other hypermetabolic foci. Impression: The right pleural effusion has decreased in size. There is a focal zone of right hilar and perihilar scarring in the chest with non hypermetabolic uptake. This is unchanged. There is new borderline hypermetabolic uptake at the costovertebral angle of the left eighth rib. There is new hypermetabolic uptake in the medial level of the left adrenal gland. There is diffuse marked hypermetabolic uptake in the descending colon, sigmoid colon and rectosigmoid colon as an interval change, possibly colitis. The study is performed with 8.4 mCi of F 18 FDG. Electronically Signed by Yayo Weiner MD 11/19/2018 07:32 P
== END ==
LOC: M PLARAD 08:21
PROVIDERS: ATTEND Internal Medicine Hematology & Oncology
DX: R93.5 Abnormal findings on diagnostic imaging of other abdominal regions, including retroperitoneum (principal); C34.11 Malignant neoplasm of upper lobe, right bronchus or lung
CPT/HCPCS: 78815; A9552

== ENCOUNTER → 2019-01-08 | Outpatient (CLI) | payer MEDICARE, OTHER ==
[~2019-01-08] MED LIST changes: +D-3-50003 PO; -VITA1CAP7 PO
--- NOTE | 2019-01-09 11:24 | RADONC ---
RADIATION ONCOLOGY FOLLOWUP NOTE DATE: 01/08/2019 CHART NUMBER: [id number] DIAGNOSIS: Right lung cancer. STAGE: IIIB, T4N2M0. ECOG PERFORMANCE STATUS: 0. FOLLOWUP NOTE: Ms. Kay is a very pleasant 68-year-old white female with the diagnosis of a stage IIIB, T4N2M0, adenocarcinoma of the right upper lobe who is presenting to us today for routine followup visit 1 year and 5 months post completion of external beam radiation therapy. The patient presents today reporting that she is doing quite well with no complaints at this time related to her radiation therapy or disease. She is having no difficulty swallowing or shortness of breath. The patient's review of systems is noncontributory. She denies nausea, vomiting, fevers, chills, night sweats, diplopia, headaches, anxiety or depression, anorexia, weight loss, visual disturbances, chest pain, urinary or bowel difficulties, bone pain, or neurological problems. PHYSICAL EXAMINATION: The patient is a well-developed, well-nourished, female in no acute distress. HEENT exam is normocephalic, atraumatic. Extraocular movements are intact. There is no palpable cervical, supraclavicular, infraclavicular, axillary, or inguinal lymphadenopathy present. Lungs are clear to auscultation and percussion. Heart has a regular rate and rhythm. Abdomen is benign with no hepatosplenomegaly, masses, or tenderness. Skeletal examination reveals no tenderness to pressure or percussion of the bony skeleton. Extremities reveal no clubbing, cyanosis, or edema. Neurologic exam is grossly intact, as is the remainder of the physical examination. ASSESSMENT: The patient is clinically doing well at this time. She had a PET scan done on 11/19/2018 which showed an area of hypermetabolic uptake in the left adrenal gland which was new. She is scheduled for a repeat CT scan in February to further evaluate that area. The PET scan also showed changes consistent with colitis which the patient does have a history of. The patient is being followed and managed closely by her medical oncologist, Dr. Pandya, but has asked to continue with 3-month followups in our office as well. I have therefore set her up with a followup in 3 months' time here as well. cc: REID Avelar MD A. Melynne Youngblood, MD
== END ==
LOC: M ONCR 12:45
PROVIDERS: ATTEND Radiology Radiation Oncology
DX: C34.11 Malignant neoplasm of upper lobe, right bronchus or lung (principal); K52.9 Noninfective gastroenteritis and colitis, unspecified; Z92.3 Personal history of irradiation

== ENCOUNTER → 2019-01-30 | Outpatient (REF) | payer MEDICARE, OTHER ==
[2019-01-30 13:19] LABS: FREE T4 1.48 NG/DL (0.76-1.46); THYROID STIMULATING HORMONE 3.9 uIU/ML (0.358-3.740)
== END ==
LOC: M LABDRWAD 12:13
PROVIDERS: ATTEND Physician Assistant Medical
DX: R63.4 Abnormal weight loss (principal)

== ENCOUNTER → 2019-02-24 | Outpatient (CLI) | payer MEDICARE, OTHER ==
[~2019-02-24] MED LIST changes: +ISOVUE-370 76% 100ML VIAL (Q9967) As Ordered ONE
--- NOTE | 2019-02-24 14:54 | REP ---
CT CHEST WITH IV CONTRAST: HISTORY: Restaging lung carcinoma. Comparison PET-CT study November 19, 2018. Comparison CT chest November 02, 2017. CT CONTRAST DOSE: 75 mL of intravenous Isovue 370 is administered. Preliminary pot fisher view demonstrates an Zddyyz-A-Fvwk catheter and volume loss in the right lung. There is post-treatment fibrosis in the right upper lobe and right middle lobe distributions. The previously noted oval-shaped soft tissue density in the right suprahilar region is again seen, currently measuring 2.9 x 2.6 cm, previously 3.8 x 2.5 cm on November 02, 2017. There is right pleural effusion, small to moderate in size. There is evidence of fairly diffuse parietal pleural thickening, mild in degree. No pleural-based mass lesion is observed. No pulmonary parenchymal mass lesion or new nodule is appreciated. No bony destructive lesion is appreciated. No hilar or mediastinal mass or adenopathy is observed. Mild stable fullness is again seen in the left adrenal gland. The visualized upper abdominal structures are otherwise unremarkable. No bony destructive lesion is seen. IMPRESSION: Stable chest CT finding since 11/19/2018 prior PET-CT. There is more pleural fluid on the right than was present November 02, 2017. No progressive soft tissue density or adenopathy. Stable mild fullness in the left adrenal gland. Electronically Signed by Ralph Mccray MD 02/24/2019 03:39 P
== END ==
LOC: M RAD 10:47
PROVIDERS: ATTEND Internal Medicine Hematology & Oncology
DX: C34.90 Malignant neoplasm of unspecified part of unspecified bronchus or lung (principal)
CPT/HCPCS: 71260; Q9967

== ENCOUNTER → 2019-05-27 | Outpatient (CLI) | payer MEDICARE, OTHER ==
[~2019-05-27] MED LIST changes: +CALC-205 PO; -ISOVUE-370 76% 100ML VIAL (Q9967) As Ordered ONE; +MYRB50TA PO
--- NOTE | 2019-05-27 18:29 | REP ---
Whole body PET CT scan for restaging of right upper lobe lung carcinoma: Comparison is the whole body PET scan dated 11/19/2018. Whole-body scanning is performed from skull base to the upper thighs. Neck and supraclavicular areas: There is artifactual uptake in tonsillar tissues and vocal cords. There are no hypermetabolic foci. Chest: There is a partially loculated right pleural effusion. This is unchanged. There is no uptake associated with the effusion fluid. This is unchanged. The The right hilar/perihilar scarring is unchanged. There is non hypermetabolic uptake associated with this scarring, as previously, the maximal standard uptake value in this 2.4. There is no mediastinal or hilar hypermetabolic uptake. There is no axillary hypermetabolic uptake. On the prior study there was hypermetabolic uptake at the costovertebral junction of the left eighth rib. This is no longer present. There are no other foci in the chest. On the CT accompanying the scan there is an Oiatik-V-Udgd on the right with the tip terminating in the right atrium in satisfactory location, unchanged. Abdomen, pelvis and upper thighs: The previously identified focus in the left adrenal has decreased in size and uptake. The standard uptake maximal value today is 2.49, this is borderline hypermetabolic. Previously it was 4.2. The previously identified uptake in the descending colon, sigmoid colon and rectosigmoid colon is no longer present. There is nonspecific bowel uptake today. There are no other hypermetabolic foci in the abdomen, pelvis or upper thighs today. Impression: There is a partially loculated right pleural effusion, unchanged, with no radio tracer uptake. There is right hilar/perihilar scarring with non hypermetabolic uptake, unchanged. Previously there was hypermetabolic uptake at the costovertebral angle of the left eighth rib. This is no longer present. The hypermetabolic uptake identified in the left adrenal previously has decreased and the uptake is now borderline hypermetabolic. The previously identified colon uptake is no longer present. There are no new hypermetabolic foci. The study is performed with 8.27 mCi of F 18 FDG. Electronically Signed by Yayo Weiner MD 05/27/2019 06:20 P
== END ==
LOC: M PLARAD 07:32
PROVIDERS: ATTEND Internal Medicine Hematology & Oncology
DX: C34.11 Malignant neoplasm of upper lobe, right bronchus or lung (principal)
CPT/HCPCS: 78815; A9552

== ENCOUNTER → 2019-09-05 | Outpatient (CLI) | payer MEDICARE, OTHER ==
[~2019-09-05] MED LIST changes: +ISOVUE-370 76% 100ML VIAL (Q9967) As Ordered ONE
--- NOTE | 2019-09-05 10:44 | REP ---
Clinical: Lung cancer. Restaging. Technique: Axial contrast enhanced images from the thoracic inlet to the upper abdomen with coronal and sagittal re-formations. Comparison: 02/24/2019. Findings: Extensive postsurgical and pleuroparenchymal changes in evolving the right hemithorax including moderate to large right pleural effusion, presumed focal collapse at the anterior right apex, ill-defined fibrosis/scarring appear unchanged. Left hemithorax is well-aerated and essentially clear with small stable area of fibrosis/scarring along the medial left upper lobe. Thoracic aorta, pulmonary vasculature, and heart/pericardium appear relatively normal / stable. Jtbykj-R-Ifqg identified with tip in the right atrium. Osseous structures are grossly intact without focal aggressive abnormality identified. Limited upper abdomen demonstrates stable left adrenal nodule has compare with abdominal CT dated 08/29/2018. Impression: 1. Stable postsurgical and pleuroparenchymal changes primarily involving the right hemithorax including moderate to large partially loculated pleural effusion. 2. No new acute pleuroparenchymal process appreciated. Electronically Signed by Mitchel Castro MD 09/05/2019 10:36 A
== END ==
LOC: M RAD 09:42
PROVIDERS: ATTEND Internal Medicine Hematology & Oncology
DX: C34.11 Malignant neoplasm of upper lobe, right bronchus or lung (principal); J90 Pleural effusion, not elsewhere classified; J94.2 Hemothorax
CPT/HCPCS: 71260; Q9967

== ENCOUNTER → 2019-09-24 | Outpatient (CLI) | payer MEDICARE, OTHER ==
[~2019-09-24] MED LIST changes: +BUPIVACAINE/EPIN 0.5% 30 ML VIAL As Ordered ONE; -ISOVUE-370 76% 100ML VIAL (Q9967) As Ordered ONE; +LIDOCAINE 1% MDV 20ML VIAL As Ordered ONE; +MIDAZOLAM INJ 2 MG/2 ML VIAL (J2250) As Ordered ONE; +ceFAZolin 1GM INJ (J0690 PER 500MG) As Ordered ONE; +fentaNYL 100 MCG/2 ML INJECTION (J3010) As Ordered ONE
--- NOTE | 2019-09-24 12:32 | ROOPDOC ---
[facility] Report Of Operation Report of Operation DATE OF PROCEDURE: 09/24/19 PREPROCEDURE DIAGNOSES: History of lung cancer no longer requiring Mcccoe-o-Rgly POSTPROCEDURE DIAGNOSES: Same PROCEDURE: Removal right subclavian Cokvrg-s-Aybl SURGEON: Barbara Melgar MD ANESTHESIA: Local anesthesia 10 mL half percent Marcaine with epi. Moderate intravenous conscious sedation was supervised by Dr. Melgar. The patient with inability monitor by registered nurse and signed the Department of radiology using automated blood pressure, EKG, and pulse oximetry. The detailed sedation record is probably started in the hospital information system. The following is a brief sedation record: Versed 0.5 mg IV, fentanyl 25 g IV, Ancef 2 g IV. INDICATION FOR PROCEDURE: This is a very pleasant 69-year-old patient status post treatment for lung cancer with radiation to the right chest, and no longer requires an Bommns-z-Dmhe for treatment. On exam, she does have some retraction of the tissue around the port, and likely this is from radiation treatment in the same area as her Bpqexi-h-Hogs. Risks benefits and alternatives to Ouzcsp-g-Gjkq removal were explained to the patient she was agreeable to proceed. Informed consent was obtained. INTERPRETATION: Chest x-ray following removal of the Ccghht-p-Qotn shows the entire port was removed and no portion was left behind. REPORT OF OPERATION: The patient was brought to the angiographic suite in stable condition. Her right neck and chest were prepped and draped in a sterile fashion. A timeout was performed. Sedation was administered without complication. Local anesthesia was a electronics research engineer to the skin and subcutaneous tissue around the port. An incision was made over the previous scar proximal to the port and carried down through the subcutaneous tissue was sharp dissection. The port capsule was encountered and carefully dissected away from the port. A qafrka-qw-wstsl Vicryl suture was placed around the catheter and the port and catheter were removed. The entire catheter was intact and x-ray confirmed no portion was left behind. Pressure was held under the clavicle for 5 minutes for good hemostasis. Within the pocket, we noticed a paucity of soft tissue, likely secondary to radiation around the port. I discussed with the patient that this may or may not fill-in over time. The soft tissue was absent all the way down to the rib periosteum. We then irrigated with copious amounts of saline. 2 layers of Vicryl sutures were used to approximate the deeper tissues and skin was closed with a running subcutaneous together Monocryl suture. Mastisol and Steri- Strips were placed the length of the incision and dry gauze and Tegaderm were placed over the entire area. The patient was allowed to awaken from her anesthesia was taken to recovery in stable condition. She tolerated the procedure and the sedation well. ESTIMATED BLOOD LOSS: Approximately 5 mL. COMPLICATIONS: None. PLAN: Okay to shower after 24 hours. Okay to remove Tegaderm and gauze after 48 hours. We've Steri-Strips intact 5-7 days until he pilaf on their own. Okay to resume home medications and home diet. BARBARA MELGAR MD Sep 24, 2019 12:32
[2019-09-24 14:10] VITALS: BP 109/57
== END ==
LOC: M IRPRO 09:47
PROVIDERS: ATTEND Internal Medicine Hematology & Oncology
DX: Z45.2 Encounter for adjustment and management of vascular access device (principal); Z85.118 Personal history of other malignant neoplasm of bronchus and lung
CPT/HCPCS: 36590; 99152; 99153; J0690; J2250; J3010

== ENCOUNTER → 2019-11-12 | Outpatient (REF) | payer MEDICARE, OTHER ==
[~2019-11-12] MED LIST changes: -BUPIVACAINE/EPIN 0.5% 30 ML VIAL As Ordered ONE; -FLUO20CA19 PO; +FLUO20CA22 PO; -LIDOCAINE 1% MDV 20ML VIAL As Ordered ONE; -MIDAZOLAM INJ 2 MG/2 ML VIAL (J2250) As Ordered ONE; -ceFAZolin 1GM INJ (J0690 PER 500MG) As Ordered ONE; -fentaNYL 100 MCG/2 ML INJECTION (J3010) As Ordered ONE
[2019-11-12 13:40] LABS: CHOLESTEROL RISK RATIO 2.781 (<5); FREE T4 1.15 NG/DL (0.76-1.46); THYROID STIMULATING HORMONE 8.6 uIU/ML (0.358-3.740)
[2019-11-12 14:13] LABS: TOTAL 25(OH) VITAMIN D 39.1 NG/ML (30.0-100.0)
== END ==
LOC: M LABDRWAD 12:31
PROVIDERS: ATTEND Physician Assistant
DX: Z00.00 Encounter for general adult medical examination without abnormal findings (principal); E03.9 Hypothyroidism, unspecified; Z79.899 Other long term (current) drug therapy

== ENCOUNTER → 2020-02-13 | Outpatient (REF) | payer MEDICARE, OTHER ==
[2020-02-13 18:44] LABS: FREE T4 1.3 NG/DL (0.76-1.46); THYROID STIMULATING HORMONE 5.21 uIU/ML (0.358-3.740)
== END ==
LOC: M LABDRWAD 17:10
PROVIDERS: ATTEND Physician Assistant
DX: E03.9 Hypothyroidism, unspecified (principal)

== ENCOUNTER → 2020-03-10 | Outpatient (CLI) | payer MEDICARE, OTHER ==
[~2020-03-10] MED LIST changes: +LEVO88TA3 PO
[2020-03-10 15:55] LABS: BASO # 0.1 10^3/uL (0.0-0.2); EOS # 0.3 10^3/uL (0.0-0.5); EOS % 3.6 % (0.0-3.0); HEMATOCRIT 41.7 % (36.0-47.0); HEMOGLOBIN 13.1 g/dl (12.0-15.5); LYMPH % 12.3 % (24.0-44.0); MEAN CORPUSCULAR HGB CONC 31.4 g/dl (32.0-36.5); MONO # 0.6 10^3/uL (0.0-0.8); MONO % 7.3 % (0.0-5.0); NEUTROPHILS # 5.9 10^3/uL (1.5-8.5); NEUTROPHILS % 75.4 % (36.0-66.0); PLATELET COUNT, AUTOMATED 407 10^3/uL (150-450); RED BLOOD COUNT 4.85 10^6/uL (4.00-5.40); WHITE BLOOD COUNT 7.8 10^3/uL (4.0-10.0)
[2020-03-10 16:05] LABS: INR 0.98; PROTHROMBIN TIME 12.7 SECONDS (11.8-14.0)
[2020-03-10 16:06] LABS: PARTIAL THROMBOPLASTIN TIME 26.9 SECONDS (25.0-38.4)
[2020-03-10 16:13] LABS: ALBUMIN 3.9 GM/DL (3.2-5.2); ALT/SGPT 19 U/L (12-78); BILIRUBIN,TOTAL 0.4 MG/DL (0.2-1.0); BLOOD UREA NITROGEN 13 MG/DL (7-18); CALCIUM LEVEL 9.8 MG/DL (8.8-10.2); CARBON DIOXIDE LEVEL 30 MEQ/L (21-32); CHLORIDE LEVEL 104 MEQ/L (98-107); CREATININE FOR GFR 0.94 MG/DL (0.55-1.30); GLOMERULAR FILTRATION RATE > 60.0 (>45); GLUCOSE, FASTING 85 MG/DL (70-100); POTASSIUM SERUM 4.7 MEQ/L (3.5-5.1); SODIUM LEVEL 138 MEQ/L (136-145); TOTAL PROTEIN 7.7 GM/DL (6.4-8.2)
== END ==
LOC: M PLALAB 14:17
PROVIDERS: ATTEND Internal Medicine Medical Oncology
DX: C34.90 Malignant neoplasm of unspecified part of unspecified bronchus or lung (principal); Z79.01 Long term (current) use of anticoagulants

== ENCOUNTER → 2020-03-11 | Outpatient (CLI) | payer MEDICARE, OTHER ==
[~2020-03-11] MED LIST changes: +ISOVUE-370 76% 100ML VIAL As Ordered ONE
--- NOTE | 2020-03-11 11:42 | REP ---
Clinical: History of non-small cell lung cancer. Technique: Axial contrast enhanced images from the thoracic inlet to the upper abdomen with coronal and sagittal re-formations. 75 ml Isovue 370 intravenous contrast material administered without complication. Comparison: 09/05/2019. Findings: The irregular consolidation and scarring in the right upper lung zone along with partially loculated right pleural effusion are essentially unchanged as compared to 09/05/2019. The left hemithorax is well-aerated and clear. Mediastinum demonstrates stable appearance to the thoracic aorta, pulmonary vasculature, and heart/pericardium. No obvious adenopathy. Surrounding musculoskeletal structures demonstrate stable changes without acute osseous abnormality. Limited upper abdomen demonstrates stable left adrenal lesion measuring approximately 1.3 cm. Impression: 1. Volume loss with postsurgical and pleuroparenchymal changes of the right hemithorax remains stable. 2. No new acute mediastinal or pleuroparenchymal process appreciated. No obvious evidence for recurrence or metastatic disease. 3. Stable left adrenal lesion. Electronically Signed by Mitchel Castro MD 03/11/2020 11:34 A
== END ==
LOC: M RAD 10:28
PROVIDERS: ATTEND Internal Medicine Hematology & Oncology
DX: C34.91 Malignant neoplasm of unspecified part of right bronchus or lung (principal); E27.9 Disorder of adrenal gland, unspecified
CPT/HCPCS: 71260; Q9967

== ENCOUNTER 2020-03-17 14:50 | Emergency (ER) | payer MEDICARE, OTHER ==
[~2020-03-17] VITALS: Ht 162.6 cm; Wt 75.4 kg
[~2020-03-17 14:50] MED LIST changes: -ISOVUE-370 76% 100ML VIAL As Ordered ONE
[2020-03-17] MEDS ORDERED: LIDOCAINE 1% MDV 20ML VIAL IM ONE (16:45)
[2020-03-17] MEDS ORDERED: ACETAMINOPHEN 325 MG TAB PO ONE (17:00)
[2020-03-17 17:35] VITALS: BP 135/63
--- NOTE | 2020-03-18 02:11 | REP ---
REASON: Trauma. There is a dorsal dislocation of the proximal interphalangeal joint of the 3rd digit. There is no evidence of a concomitant 3rd digit fracture at this time. There is an oblique fracture through the diaphysis of the 3rd metacarpal with minimal displacement. The bones are demineralized. There are degenerative changes seen throughout the hand. IMPRESSION: Fracture and dislocation, as described above. Electronically Signed by Juan Mantilla DO 03/18/2020 11:26 A
--- NOTE | 2020-03-18 06:43 | REP ---
REASON FOR EXAM: Followup post reduction of the proximal interphalangeal joint of the 3rd digit. The previously described dorsal dislocation of the proximal interphalangeal joint of the 3rd digit has been reduced. No fracture has developed; however, the lateral view was suboptimally obtained, as the fingers were not in total, but the 3rd digit appeared adequately from the remainder of the digits and showing no evidence of a fracture. The previously described oblique fracture through the diaphysis of the 3rd metacarpal is again noted and is unchanged. IMPRESSION: As above. Electronically Signed by Juan Mantilla DO 03/18/2020 04:52 P
--- NOTE | 2020-03-19 08:31 | ED PDOC ---
Post-Departure Follow-Up feft hand film faxed formal report of left hand for fu Juan Dutta MD Mar 19, 2020 08:31
== END 2020-03-17 17:42 | disposition home or self-care (01) ==
LOC: M ED 14:50
DX: S62.613A Displaced fracture of proximal phalanx of left middle finger, initial encounter for closed fracture (principal); W19.XXXA Unspecified fall, initial encounter; Z79.891 Long term (current) use of opiate analgesic; Z79.899 Other long term (current) drug therapy; Z87.891 Personal history of nicotine dependence; Z88.2 Allergy status to sulfonamides

== ENCOUNTER → 2020-04-28 | Outpatient (REF) | payer MEDICARE, OTHER ==
[2020-04-28 14:58] LABS: FREE T4 1.4 NG/DL (0.76-1.46); THYROID STIMULATING HORMONE 2.82 uIU/ML (0.358-3.740)
== END ==
LOC: M LABDRWAD 12:41
PROVIDERS: ATTEND Physician Assistant
DX: E03.9 Hypothyroidism, unspecified (principal)

== ENCOUNTER → 2020-07-27 | Outpatient (REF) | payer MEDICARE, OTHER ==
[2020-07-27 18:11] LABS: ALBUMIN 4.1 GM/DL (3.2-5.2); BILIRUBIN,TOTAL 0.5 MG/DL (0.2-1.0); CALCIUM LEVEL 9.4 MG/DL (8.8-10.2); CHOLESTEROL RISK RATIO 2.872 (<5); CREATININE FOR GFR 0.98 MG/DL (0.55-1.30); FREE T4 1.36 NG/DL (0.76-1.46); GLOMERULAR FILTRATION RATE 59.9 (>45); POTASSIUM SERUM 4.6 MEQ/L (3.5-5.1); THYROID STIMULATING HORMONE 4.54 uIU/ML (0.358-3.740); TOTAL PROTEIN 7.8 GM/DL (6.4-8.2)
== END ==
LOC: M LABDRWAD 16:26
PROVIDERS: ATTEND Physician Assistant Medical
DX: E78.2 Mixed hyperlipidemia (principal); E03.9 Hypothyroidism, unspecified

== ENCOUNTER → 2020-09-01 | Outpatient (REF) | payer MEDICARE, OTHER ==
[2020-09-01 17:26] LABS: BASO # 0.1 10^3/uL (0.0-0.2); EOS # 0.2 10^3/uL (0.0-0.5); EOS % 1.9 % (0.0-3.0); HEMOGLOBIN 12.4 g/dl (12.0-15.5); LYMPH # 0.8 10^3/uL (1.5-5.0); LYMPH % 9.5 % (24.0-44.0); MEAN CORPUSCULAR HEMOGLOBIN 26.4 pg (27.0-33.0); MEAN CORPUSCULAR HGB CONC 30.2 g/dl (32.0-36.5); MEAN CORPUSCULAR VOLUME 87.4 fl (80.0-96.0); MONO # 0.5 10^3/uL (0.0-0.8); MONO % 5.8 % (0.0-5.0); NEUTROPHILS # 6.8 10^3/uL (1.5-8.5); NEUTROPHILS % 81.4 % (36.0-66.0); PLATELET COUNT, AUTOMATED 381 10^3/uL (150-450); RED BLOOD COUNT 4.69 10^6/uL (4.00-5.40); WHITE BLOOD COUNT 8.3 10^3/uL (4.0-10.0)
[2020-09-01 17:49] LABS: ALBUMIN 3.9 GM/DL (3.2-5.2); ALT/SGPT 18 U/L (12-78); BILIRUBIN,TOTAL 0.3 MG/DL (0.2-1.0); BLOOD UREA NITROGEN 14 MG/DL (7-18); CALCIUM LEVEL 9.2 MG/DL (8.8-10.2); CARBON DIOXIDE LEVEL 30 MEQ/L (21-32); CHLORIDE LEVEL 103 MEQ/L (98-107); CREATININE FOR GFR 0.96 MG/DL (0.55-1.30); GLOMERULAR FILTRATION RATE > 60.0 (>45); GLUCOSE, FASTING 93 MG/DL (70-100); SODIUM LEVEL 140 MEQ/L (136-145); TOTAL PROTEIN 7.5 GM/DL (6.4-8.2)
== END ==
LOC: M LABDRWAD 17:09
PROVIDERS: ATTEND Internal Medicine Medical Oncology
DX: C34.90 Malignant neoplasm of unspecified part of unspecified bronchus or lung (principal)

== ENCOUNTER → 2020-09-14 | Outpatient (CLI) | payer MEDICARE, OTHER ==
--- NOTE | 2020-09-16 08:54 | REP ---
INDICATION: RESTAGING LUNG CANCER C34.11. Patient is post chemo and radiation therapy. COMPARISON: Comparison PET-CT studies are from April 11, 2017, November 19, 2018, and and May 27, 2019.. TECHNIQUE: Forty-eight minutes following the intravenous injection of a 9.09 mCi dose of F-18 FDG, three-dimensional PET scintigraphy is acquired from the skull base to the proximal thighs. Triplanar noncontrast CT scanning is acquired through the same anatomic range for attenuation correction, and image registration with scan parameters optimized to minimize radiation exposure to the patient. PET scintigraphy and CT datasets were fused and displayed on a workstation with multiplanar and projection display capability. FINDINGS: Incidental findings include uterine leiomyomatous changes and a small descending duodenal lipoma. Head and neck soft tissues are unremarkable. There is post radiation chest wall skeletal muscle uptake anterior and posterior to the right upper thorax unchanged. There is some mildly increased uptake in the right anterior subclavicular soft tissues where previous study showed an Wtekji-D-Jfgt catheter, now removed. The area appears fibrotic. Maximum standard uptake values 3.43 here. There is chronic collapse, fibrosis, and consolidation in the right upper lobe region perihilar area with mildly increased uptake, maximum SUV value 3.82; not significantly changed from prior study. Previously noted focus of pleural based hypermetabolic uptake in the right upper lobe where maximum SUV value had been 5.08 on 05/27/2019 is no longer apparent today. This area appears improved. There is no significant hypermetabolic uptake associated with a chronic loculated right pleural effusion cavity. There is no asymmetric or hypermetabolic uptake in the adrenal glands today. No adrenal mass lesion is observed. No abnormal hypermetabolic uptake is seen in the abdomen or pelvis. The scan is otherwise unremarkable. IMPRESSION: Findings consistent with a stable post radiation changes in the right chest. Loculated right effusion. No suspicious new focus of uptake. <Electronically signed by Khoi Mccray > 09/16/20 [id number]
== END ==
LOC: M PLARAD 10:21
PROVIDERS: ATTEND Internal Medicine Medical Oncology
DX: C34.11 Malignant neoplasm of upper lobe, right bronchus or lung (principal); J90 Pleural effusion, not elsewhere classified; Z92.3 Personal history of irradiation; Z92.21 Personal history of antineoplastic chemotherapy
CPT/HCPCS: 78815; A9552

== ENCOUNTER → 2020-12-07 | Outpatient (CLI) | payer MEDICARE, OTHER ==
--- NOTE | 2020-12-07 12:44 | REP ---
INDICATION: LT SHOULDER PAIN. COMPARISON: Comparison left shoulder radiographs are from March 02, 2020.. TECHNIQUE: Axial, oblique coronal, and oblique sagittal imaging planes utilized. T1 and T2 weighted scans are included with and without fat saturation in the usual fashion. FINDINGS: There are subcortical cysts in the posterolateral humeral head. This may correlate with impingement. Glenohumeral and acromioclavicular joints are normally aligned. Cortical and medullary bone signal intensity are otherwise normal. There is mild osteoarthritic hypertrophy superiorly and inferiorly at the acromioclavicular joint. No joint effusion is seen. There is a subacromial subdeltoid bursal effusion however. This is small. There is heterogeneous swelling and increased signal intensity in the substance of the distal supraspinatus tendon consistent with tendinitis tendinosis/partial thickness supraspinatus lesion. No full-thickness cuff tear is seen. The subscapularis and infraspinatus tendons appear intact. Biceps tendon is unremarkable. No glenoid labral tear is appreciated. IMPRESSION: AC joint osteoarthritis. Subacromial subdeltoid bursal effusion. Fairly advanced intrasubstance increased signal intensity in the distal supraspinatus tendon consistent with tendinitis tendinosis versus intrasubstance partial thickness tear. <Electronically signed by Khoi Mccray > 12/07/20 [id number]
== END ==
LOC: M RAD 10:29
PROVIDERS: ATTEND Nurse Practitioner Family
DX: M19.012 Primary osteoarthritis, left shoulder (principal); M25.412 Effusion, left shoulder

== ENCOUNTER → 2021-01-25 | Outpatient (REF) | payer MEDICARE, OTHER ==
[2021-01-25 18:39] LABS: FREE T4 1.45 NG/DL (0.76-1.46); THYROID STIMULATING HORMONE 1.69 uIU/ML (0.358-3.740)
== END ==
LOC: M LABDRWAD 16:24
PROVIDERS: ATTEND Physician Assistant Medical
DX: E03.9 Hypothyroidism, unspecified (principal)

== ENCOUNTER → 2021-01-25 | Outpatient (REF) | payer MEDICARE, OTHER ==
[2021-01-25 18:29] LABS: BLOOD UREA NITROGEN 12 MG/DL (7-18); GLOMERULAR FILTRATION RATE > 60.0 (>45)
== END ==
LOC: M LABDRWAD 16:26
PROVIDERS: ATTEND Orthopaedic Surgery
DX: M79.602 Pain in left arm (principal)

== ENCOUNTER → 2021-01-25 | Outpatient (CLI) | payer MEDICARE, OTHER ==
--- NOTE | 2021-01-25 12:39 | REP ---
INDICATION: PAIN IN LEFT ARM. COMPARISON: None TECHNIQUE: Two views FINDINGS: No acute fracture or destructive osseous lesion. IMPRESSION: As above <Electronically signed by Juan Mantilla > 01/25/21 [id number]
== END ==
LOC: M ADAMS 11:28
PROVIDERS: ATTEND Orthopaedic Surgery
DX: M79.602 Pain in left arm (principal); E03.9 Hypothyroidism, unspecified

== ENCOUNTER → 2021-02-23 | Outpatient (CLI) | payer MEDICARE, OTHER ==
[~2021-02-23] MED LIST changes: +PROHANCE 279.3MG/ML 15ML VIAL As Ordered ONE
--- NOTE | 2021-02-24 09:21 | REP ---
INDICATION: LT ARM PAIN. COMPARISON: Radiographs 01/25/2021, MRI left shoulder 12/07/2020. TECHNIQUE: Multiple sequences obtained in the axial, coronal and sagittal planes prior to and following the intravenous administration of 15 mL ProHance. FINDINGS: The left humerus demonstrates normal bone marrow signal. There is no bone marrow edema or occult fracture. No bone lesion is seen. Cortex demonstrates normal signal diffusely. There is no cortical disruption. Soft tissue structures of the left upper arm demonstrate no abnormal signal or enhancement. There is no enhancing cystic or solid mass. No muscle or tendon abnormality is seen. IMPRESSION: Negative MRI left upper arm with and without contrast. <Electronically signed by Yayo Deluca > 02/24/21 [id number]
== END ==
LOC: M RAD 16:41
PROVIDERS: ATTEND Orthopaedic Surgery
DX: M79.602 Pain in left arm (principal)
CPT/HCPCS: 73220; A9576

== ENCOUNTER → 2021-04-11 | Outpatient (REF) | payer MEDICARE, OTHER ==
[~2021-04-11] MED LIST changes: -PROHANCE 279.3MG/ML 15ML VIAL As Ordered ONE
[2021-04-11 13:32] LABS: BASO # 0.1 10^3/uL (0.0-0.2); BASO % 0.7 % (0.0-1.0); EOS # 0.2 10^3/uL (0.0-0.5); EOS % 2.3 % (0.0-3.0); HEMATOCRIT 38.3 % (36.0-47.0); HEMOGLOBIN 11.9 g/dl (12.0-15.5); LYMPH # 0.6 10^3/uL (1.5-5.0); LYMPH % 7.7 % (24.0-44.0); MEAN CORPUSCULAR HEMOGLOBIN 27.4 pg (27.0-33.0); MEAN CORPUSCULAR HGB CONC 31.1 g/dl (32.0-36.5); MEAN CORPUSCULAR VOLUME 88.2 fl (80.0-96.0); MONO # 0.6 10^3/uL (0.0-0.8); MONO % 7.2 % (2.0-8.0); NEUTROPHILS # 6.7 10^3/uL (1.5-8.5); NEUTROPHILS % 81.7 % (36.0-66.0); PLATELET COUNT, AUTOMATED 361 10^3/uL (150-450); RED BLOOD COUNT 4.34 10^6/uL (4.00-5.40); WHITE BLOOD COUNT 8.2 10^3/uL (4.0-10.0)
[2021-04-11 14:00] LABS: ALBUMIN 3.6 GM/DL (3.2-5.2); ALT/SGPT 14 U/L (12-78); BILIRUBIN,TOTAL 0.4 MG/DL (0.2-1.0); BLOOD UREA NITROGEN 13 MG/DL (7-18); CALCIUM LEVEL 9.1 MG/DL (8.8-10.2); CARBON DIOXIDE LEVEL 30 MEQ/L (21-32); CHLORIDE LEVEL 105 MEQ/L (98-107); CREATININE FOR GFR 0.93 MG/DL (0.55-1.30); GLOMERULAR FILTRATION RATE > 60.0 (>39); GLUCOSE, FASTING 76 MG/DL (70-100); POTASSIUM SERUM 4.5 MEQ/L (3.5-5.1); SODIUM LEVEL 140 MEQ/L (136-145)
== END ==
LOC: M LABDRWAD 12:32
PROVIDERS: ATTEND Internal Medicine Medical Oncology
DX: C34.11 Malignant neoplasm of upper lobe, right bronchus or lung (principal)

== ENCOUNTER → 2021-06-13 | Outpatient (REF) | payer MEDICARE, OTHER ==
[2021-06-13 14:50] LABS: FREE T4 1.38 NG/DL (0.76-1.46); THYROID STIMULATING HORMONE 3.4 uIU/ML (0.358-3.740); TOTAL 25(OH) VITAMIN D 37.2 NG/ML (30.0-100.0)
== END ==
LOC: M LABDRWAD 12:42
PROVIDERS: ATTEND Family Medicine
DX: E03.9 Hypothyroidism, unspecified (principal); E55.9 Vitamin D deficiency, unspecified; Z79.899 Other long term (current) drug therapy

== ENCOUNTER → 2021-06-27 | Outpatient (CLI) | payer MEDICARE, OTHER ==
--- NOTE | 2021-06-27 15:44 | REP ---
INDICATION: COUGH, SOB COMPARISON: PET-CT 09/14/2020 as well as other prior exams. TECHNIQUE: PA/Lateral FINDINGS: Extensive pleural and parenchymal opacity on the right appears similar to the recent PET-CT of 09/14/2020. Appears to be some scarring in the left costophrenic angle. Left lung is otherwise clear. Heart does not appear to be significantly enlarged. There is an old mild compression deformity of a midthoracic vertebral body, stable. IMPRESSION: Chronic pleural and parenchymal opacity right lung. No definite new findings. <Electronically signed by Yayo Deluca > 06/27/21 [id number]
== END ==
LOC: M ADAMS 14:53
PROVIDERS: ATTEND Nurse Practitioner Family
DX: R91.8 Other nonspecific abnormal finding of lung field (principal); R06.02 Shortness of breath

== ENCOUNTER → 2021-06-27 | Outpatient (CLI) | payer MEDICARE, OTHER ==
[2021-06-27 16:42] LABS: BASO # 0.1 10^3/uL (0.0-0.2); BASO % 0.6 % (0.0-1.0); EOS # 0.3 10^3/uL (0.0-0.5); HEMATOCRIT 41.5 % (36.0-47.0); HEMOGLOBIN 13.1 g/dl (12.0-15.5); LYMPH # 0.8 10^3/uL (1.5-5.0); LYMPH % 8.2 % (24.0-44.0); MEAN CORPUSCULAR HGB CONC 31.6 g/dl (32.0-36.5); MEAN CORPUSCULAR VOLUME 85.4 fl (80.0-96.0); MONO # 0.7 10^3/uL (0.0-0.8); MONO % 7.6 % (2.0-8.0); NEUTROPHILS # 7.5 10^3/uL (1.5-8.5); NEUTROPHILS % 80.1 % (36.0-66.0); PLATELET COUNT, AUTOMATED 447 10^3/uL (150-450); RED BLOOD COUNT 4.86 10^6/uL (4.00-5.40); WHITE BLOOD COUNT 9.3 10^3/uL (4.0-10.0)
[2021-06-27 17:01] LABS: BLOOD UREA NITROGEN 10 MG/DL (7-18); CALCIUM LEVEL 9.5 MG/DL (8.8-10.2); CARBON DIOXIDE LEVEL 29 MEQ/L (21-32); CHLORIDE LEVEL 104 MEQ/L (98-107); GLOMERULAR FILTRATION RATE > 60.0 (>39); GLUCOSE, FASTING 82 MG/DL (70-100); POTASSIUM SERUM 4.3 MEQ/L (3.5-5.1); SODIUM LEVEL 138 MEQ/L (136-145)
== END ==
LOC: M LABDRWAD 14:55
PROVIDERS: ATTEND Nurse Practitioner Family
DX: R06.02 Shortness of breath (principal)

== ENCOUNTER → 2021-06-29 | Outpatient (CLI) | payer MEDICARE, OTHER ==
[~2021-06-29] MED LIST changes: +ISOVUE-370 76% 100ML VIAL ONE
--- NOTE | 2021-06-29 10:09 | REP ---
INDICATION: ELEVATED D DIMER SOB COUGH CHEST PAIN ? PV. COMPARISON: 03/11/2020. TECHNIQUE: CT angiogram chest performed following the intravenous administration of 100 cc of Isovue 370. Sagittal and coronal reconstruction images are performed. FINDINGS: Lungs: Mild increased consolidation superiorly in the right lung. There is stable fibrotic scarring anteromedially in the left upper lobe. There are mild dependent atelectatic changes in the left lung. Mediastinum: No adenopathy. Pulmonary arteries: No evidence of pulmonary embolism. Mira: No adenopathy. Axilla: No adenopathy. Pleura: Moderate loculated right pleural fluid is unchanged. There is a new moderate left pleural effusion. Heart: Not enlarged. Thoracic aorta: No aneurysm or dissection. Upper abdominal structures: There is a stable left adrenal nodule measuring 27 x 14 mm.. Visualized osseous structures: Unremarkable. IMPRESSION: No CT evidence of pulmonary embolism. Mild increase in consolidative opacity right superior lung, likely due to prior radiation. No change right loculated pleural fluid. New moderate left pleural effusion. <Electronically signed by Yayo Deluca > 06/29/21 [id number]
== END ==
LOC: M PLAIMG 08:41
PROVIDERS: ATTEND Nurse Practitioner Family
DX: R06.02 Shortness of breath (principal); R05.9 Cough, unspecified
CPT/HCPCS: 71275; Q9967

== ENCOUNTER → 2021-09-05 | Outpatient (CLI) | payer MEDICARE, OTHER ==
[~2021-09-05] MED LIST changes: -DICY20TA11 PO; +DICY20TA20 PO; -ISOVUE-370 76% 100ML VIAL ONE
== END ==
LOC: M LABSMTC 10:17
PROVIDERS: ATTEND Anesthesiology
DX: Z01.818 Encounter for other preprocedural examination (principal); Z11.52 Encounter for screening for COVID-19

== ENCOUNTER 2021-09-08 08:25 | Day surgery (SDC) | payer MEDICARE, OTHER ==
[~2021-09-08] VITALS: Ht 162.6 cm; Wt 66.6 kg
[~2021-09-08 08:25] MED LIST changes: +DICY20TA11 PO; -DICY20TA20 PO; +LIDOCAINE 2% 100MG/5ML SDV (FOR ANES.) As Ordered ONE; +NS 1,000 ML IV SCH; +propofoL 200 MG/20 ML VIAL As Ordered ONE
--- NOTE | 2021-09-08 09:39 | ROOR ---
Patient Name: Saranya Kay Procedure Date: 09/08/2021 9:21 AM Date of : 1950 Age: 71 Room: [facility] Gender: Female Note Status: Finalized Procedure: Upper GI endoscopy Indications: Suspected esophageal reflux Providers: Antoni Carr Jr, MD Referring MD: Marylou Fish MD Requesting Provider: Medicines: Propofol per Anesthesia Complications: No immediate complications. Procedure: Pre-Anesthesia Assessment: - Prior to the procedure, a History and Physical was performed, and patient medications and allergies were reviewed. The patient is competent. The risks and benefits of the procedure and the sedation options and risks were discussed with the patient. All questions were answered and informed consent was obtained. Patient identification and proposed procedure were verified by the physician and the nurse in the pre-procedure area and in the procedure room. Mental Status Examination: alert and oriented. Airway Examination: normal oropharyngeal airway and neck mobility. Respiratory Examination: clear to auscultation. CV Examination: normal. ASA Grade Assessment: III - A patient with severe systemic disease. After reviewing the risks and benefits, the patient was deemed in satisfactory condition to undergo the procedure. The anesthesia plan was to use moderate sedation / analgesia (conscious sedation). Immediately prior to administration of medications, the patient was re-assessed for adequacy to receive sedatives. The heart rate, respiratory rate, oxygen saturations, blood pressure, adequacy of pulmonary ventilation, and response to care were monitored throughout the procedure. The physical status of the patient was re-assessed after the procedure. The Endoscope was introduced through the mouth, and advanced to the second part of duodenum. The upper GI endoscopy was accomplished without difficulty. The patient tolerated the procedure well. Findings: The upper third of the esophagus and lower third of the esophagus were normal. One moderate stenosis was found in the middle third of the esophagus. This stenosis measured 1.4 cm (inner diameter) x 8 cm (in length). The stenosis was traversed. The cardia, gastric fundus, gastric body, gastric antrum, prepyloric region of the stomach and pylorus were normal. The duodenal bulb, first portion of the duodenum and second portion of the duodenum were normal. A mild Schatzki ring was found at the gastroesophageal junction. Impression: - Normal upper third of esophagus and lower third of esophagus. - Esophageal stenosis. - Normal cardia, gastric fundus, gastric body, antrum, prepyloric region of the stomach and pylorus. - Normal duodenal bulb, first portion of the duodenum and second portion of the duodenum. - Mild Schatzki ring. - No specimens collected. Recommendation: - Discharge patient to home (ambulatory). - Return to my office as previously scheduled. Procedure Code(s): --- Professional --- 89408, Esophagogastroduodenoscopy, flexible, transoral; diagnostic, including collection of specimen(s) by brushing or washing, when performed (separate procedure) Diagnosis Code(s): --- Professional --- K22.2, Esophageal obstruction CPT copyright 2019 [employer]. All rights reserved. The codes documented in this report are preliminary and upon driver license examiner review may be revised to meet current compliance requirements. Antoni Carr MD Antoni Carr Jr, MD 09/08/2021 9:38:36 AM Electronically signed by Antoni Carr Jr, MD Number of Addenda: 0 Note Initiated On: 09/08/2021 9:21 AM Estimated Blood Loss: Estimated blood loss: none.
--- NOTE | 2021-09-08 09:59 | ROOR ---
Patient Name: Saranya Kay Procedure Date: 09/08/2021 9:23 AM Date of : 1950 Age: 71 Room: [facility] Gender: Female Note Status: Finalized Procedure: Colonoscopy Indications: Rectal bleeding Providers: Antoni Carr Jr, MD Referring MD: Marylou Fish MD Requesting Provider: Medicines: Propofol per Anesthesia Complications: No immediate complications. Procedure: Pre-Anesthesia Assessment: - Prior to the procedure, a History and Physical was performed, and patient medications and allergies were reviewed. The patient is competent. The risks and benefits of the procedure and the sedation options and risks were discussed with the patient. All questions were answered and informed consent was obtained. Patient identification and proposed procedure were verified by the physician and the nurse in the pre-procedure area and in the procedure room. Mental Status Examination: alert and oriented. Airway Examination: normal oropharyngeal airway and neck mobility. Respiratory Examination: clear to auscultation. CV Examination: normal. ASA Grade Assessment: II - A patient with mild systemic disease. After reviewing the risks and benefits, the patient was deemed in satisfactory condition to undergo the procedure. The anesthesia plan was to use moderate sedation / analgesia (conscious sedation). Immediately prior to administration of medications, the patient was re-assessed for adequacy to receive sedatives. The heart rate, respiratory rate, oxygen saturations, blood pressure, adequacy of pulmonary ventilation, and response to care were monitored throughout the procedure. The physical status of the patient was re-assessed after the procedure. The Colonoscope was introduced through the anus and advanced to the cecum, identified by appendiceal orifice and ileocecal valve. The colonoscopy was performed without difficulty. The patient tolerated the procedure well. The quality of the bowel preparation was adequate. Findings: The descending colon, transverse colon, ascending colon, cecum, appendiceal orifice and ileocecal valve appeared normal. Diffuse moderate inflammation characterized by congestion (edema), erythema, friability, granularity and mucus was found in the rectum, in the recto-sigmoid colon and in the sigmoid colon. Biopsies were taken with a cold forceps for histology. A single small localized angiodysplastic lesion without bleeding was found in the ascending colon. Impression: - The descending colon, transverse colon, ascending colon, cecum, appendiceal orifice and ileocecal valve are normal. - Diffuse moderate inflammation was found in the rectum, in the recto-sigmoid colon and in the sigmoid colon secondary to proctosigmoid colitis. Biopsied. Recommendation: - Discharge patient to home (ambulatory). - Repeat colonoscopy at appointment to be scheduled for surveillance based on pathology results. Procedure Code(s): --- Professional --- 85234, Colonoscopy, flexible; with biopsy, single or multiple Diagnosis Code(s): --- Professional --- K63.89, Other specified diseases of intestine K62.5, Hemorrhage of anus and rectum CPT copyright 2019 [employer]. All rights reserved. The codes documented in this report are preliminary and upon turret punch press operator review may be revised to meet current compliance requirements. Antoni Carr MD Antoni Carr Jr, MD 09/08/2021 9:59:18 AM Electronically signed by Antoni Carr Jr, MD Number of Addenda: 0 Note Initiated On: 09/08/2021 9:23 AM Estimated Blood Loss: Estimated blood loss: none.
[2021-09-08 10:38] VITALS: BP 106/53
== END 2021-09-08 10:40 | disposition home or self-care (01) ==
LOC: M OPP 08:25
PROVIDERS: ATTEND Surgery
DX: K62.5 Hemorrhage of anus and rectum (principal); K51.90 Ulcerative colitis, unspecified, without complications; K22.2 Esophageal obstruction; K21.9 Gastro-esophageal reflux disease without esophagitis; Z79.899 Other long term (current) drug therapy; Z88.2 Allergy status to sulfonamides

== ENCOUNTER → 2021-09-14 | Outpatient (REF) | payer MEDICARE, OTHER ==
[~2021-09-14] MED LIST changes: -LIDOCAINE 2% 100MG/5ML SDV (FOR ANES.) As Ordered ONE; -NS 1,000 ML IV SCH; -propofoL 200 MG/20 ML VIAL As Ordered ONE
[2021-09-14 18:02] LABS: BASO # 0.1 10^3/uL (0.0-0.2); BASO % 0.9 % (0.0-1.0); EOS # 0.1 10^3/uL (0.0-0.5); EOS % 1.2 % (0.0-3.0); HEMATOCRIT 43.7 % (36.0-47.0); HEMOGLOBIN 13.6 g/dl (12.0-15.5); LYMPH % 10.7 % (24.0-44.0); MEAN CORPUSCULAR HEMOGLOBIN 26.4 pg (27.0-33.0); MEAN CORPUSCULAR HGB CONC 31.1 g/dl (32.0-36.5); MEAN CORPUSCULAR VOLUME 84.9 fl (80.0-96.0); MONO # 0.6 10^3/uL (0.0-0.8); MONO % 6.6 % (2.0-8.0); NEUTROPHILS # 7.7 10^3/uL (1.5-8.5); NEUTROPHILS % 80.1 % (36.0-66.0); PLATELET COUNT, AUTOMATED 483 10^3/uL (150-450); RED BLOOD COUNT 5.15 10^6/uL (4.00-5.40); WHITE BLOOD COUNT 9.6 10^3/uL (4.0-10.0)
[2021-09-14 19:12] LABS: ALBUMIN 3.7 GM/DL (3.2-5.2); ALT/SGPT 14 U/L (12-78); BILIRUBIN,TOTAL 0.4 MG/DL (0.2-1.0); BLOOD UREA NITROGEN 13 MG/DL (7-18); CALCIUM LEVEL 9.6 MG/DL (8.8-10.2); CARBON DIOXIDE LEVEL 27 MEQ/L (21-32); CHLORIDE LEVEL 102 MEQ/L (98-107); CREATININE FOR GFR 0.95 MG/DL (0.55-1.30); GLOMERULAR FILTRATION RATE > 60.0 (>39); GLUCOSE, FASTING 82 MG/DL (70-100); SODIUM LEVEL 138 MEQ/L (136-145); TOTAL PROTEIN 7.8 GM/DL (6.4-8.2)
== END ==
LOC: M LABDRWAD 17:35
PROVIDERS: ATTEND Internal Medicine Medical Oncology
DX: C34.90 Malignant neoplasm of unspecified part of unspecified bronchus or lung (principal)

== ENCOUNTER → 2021-09-16 | Outpatient (CLI) | payer MEDICARE, OTHER ==
[~2021-09-16] MED LIST changes: -DICY20TA11 PO; +DICY20TA20 PO; +GASTROGRAFIN SOLUTION 30ML (Q9963) As Ordered ONE; +ISOVUE-370 76% 100ML VIAL As Ordered ONE
== END ==
LOC: M RAD 11:01
PROVIDERS: ATTEND Internal Medicine Medical Oncology
DX: C34.11 Malignant neoplasm of upper lobe, right bronchus or lung (principal); J90 Pleural effusion, not elsewhere classified
CPT/HCPCS: 71260; 74177; Q9963; Q9967

== ENCOUNTER → 2021-10-10 | Outpatient (CLI) | payer MEDICARE, OTHER ==
[~2021-10-10] MED LIST changes: -GASTROGRAFIN SOLUTION 30ML (Q9963) As Ordered ONE; -ISOVUE-370 76% 100ML VIAL As Ordered ONE
== END ==
LOC: M PLARAD 09:49
PROVIDERS: ATTEND Internal Medicine Medical Oncology
DX: C34.11 Malignant neoplasm of upper lobe, right bronchus or lung (principal)
CPT/HCPCS: 78815; A9552

== ENCOUNTER → 2021-10-21 | Outpatient (CLI) | payer MEDICARE, OTHER | LOC: M IRPRO 08:17 | PROVIDERS: ATTEND Internal Medicine Medical Oncology | DX: R91.8 Other nonspecific abnormal finding of lung field (principal); Z53.8 Procedure and treatment not carried out for other reasons ==

== ENCOUNTER → 2021-11-01 | Outpatient (REF) | payer MEDICARE, OTHER ==
[2021-11-01 19:04] LABS: BASO # 0.1 10^3/uL (0.0-0.2); BASO % 0.7 % (0.0-1.0); EOS # 0.2 10^3/uL (0.0-0.5); EOS % 2.1 % (0.0-3.0); HEMATOCRIT 42.1 % (36.0-47.0); HEMOGLOBIN 13.1 g/dl (12.0-15.5); LYMPH # 0.7 10^3/uL (1.5-5.0); LYMPH % 8.2 % (24.0-44.0); MEAN CORPUSCULAR HGB CONC 31.1 g/dl (32.0-36.5); MEAN CORPUSCULAR VOLUME 83.5 fl (80.0-96.0); MONO # 0.6 10^3/uL (0.0-0.8); MONO % 7.4 % (2.0-8.0); NEUTROPHILS # 6.5 10^3/uL (1.5-8.5); NEUTROPHILS % 81.1 % (36.0-66.0); PLATELET COUNT, AUTOMATED 417 10^3/uL (150-450); RED BLOOD COUNT 5.04 10^6/uL (4.00-5.40)
[2021-11-01 19:19] LABS: INR 1.01; PROTHROMBIN TIME 13.7 SECONDS (12.7-14.5)
[2021-11-01 19:20] LABS: PARTIAL THROMBOPLASTIN TIME 33.8 SECONDS (25.9-37.0)
[2021-11-01 19:26] LABS: ALBUMIN 3.6 GM/DL (3.2-5.2); ALT/SGPT 14 U/L (12-78); BILIRUBIN,TOTAL 0.3 MG/DL (0.2-1.0); BLOOD UREA NITROGEN 19 MG/DL (7-18); CALCIUM LEVEL 9.4 MG/DL (8.8-10.2); CARBON DIOXIDE LEVEL 30 MEQ/L (21-32); CHLORIDE LEVEL 102 MEQ/L (98-107); CREATININE FOR GFR 0.93 MG/DL (0.55-1.30); GLOMERULAR FILTRATION RATE > 60.0 (>39); GLUCOSE, FASTING 120 MG/DL (70-100); LDH LACTATE DEHYDROGENASE 138 U/L (84-246); POTASSIUM SERUM 3.9 MEQ/L (3.5-5.1); SODIUM LEVEL 141 MEQ/L (136-145); TOTAL PROTEIN 7.7 GM/DL (6.4-8.2)
== END ==
LOC: M LABDRWAD 18:38
PROVIDERS: ATTEND Internal Medicine Pulmonary Disease
DX: Z01.812 Encounter for preprocedural laboratory examination (principal); J90 Pleural effusion, not elsewhere classified

== ENCOUNTER → 2021-11-02 | Outpatient (CLI) | payer MEDICARE, OTHER ==
[~2021-11-02] MED LIST changes: +FLUO40CA PO; +LIAL1.2T PO
[2021-11-02 13:02] LABS: PLEURAL FL COLOR PALE YELLOW (COLORLESS); SOURCE, BODY FLUID PLEURAL
[2021-11-02 13:03] LABS: APPEARANCE, BODY FLUID HAZY (CLEAR)
[2021-11-02 13:20] LABS: PH BODY FLUID > 7.800 UNITS (NOT ESTABLISHED); SOURCE, BODY FLUID pH PLEURAL
[2021-11-02 13:44] VITALS: BP 116/64
[2021-11-02 13:58] LABS: AMYLASE, BODY FLUID 34 U/L (NOT ESTABLISHED); LDH, BODY FLUID 150 U/L (NOT ESTABLISHED); SOURCE, BODY FLUID AMYLASE PLEURAL; SOURCE, BODY FLUID GLUCOSE PLEURAL; SOURCE, BODY FLUID LDH PLEURAL; SOURCE, BODY FLUID TOT PROTEIN PLEURAL; TOTAL PROTEIN, BODY FLUID 4.2 G/DL (NOT ESTABLISHED)
== END ==
LOC: M IRPRO 10:42
PROVIDERS: ATTEND Internal Medicine Pulmonary Disease
DX: J90 Pleural effusion, not elsewhere classified (principal)

== ENCOUNTER → 2021-11-18 | Outpatient (CLI) | payer MEDICARE, OTHER | LOC: M LABSMTC 11:29 | PROVIDERS: ATTEND Anesthesiology | DX: Z01.812 Encounter for preprocedural laboratory examination (principal); Z20.822 Contact with and (suspected) exposure to COVID-19 ==

== ENCOUNTER 2021-11-23 08:55 | Day surgery (SDC) | payer MEDICARE, OTHER ==
[~2021-11-23] VITALS: Ht 162.6 cm; Wt 63.0 kg
[~2021-11-23 08:55] MED LIST changes: +ALBUTEROL SULFATE 2.5 MG/0.5 ML INH NEB SOLN INH ONE; +CETACAINE SPRAY 5GM As Ordered ONE; +EPINEPHrine INJ 1 MG/ML 1ML AMP As Ordered ONE; +LIDOCAINE 1% SDV 30ML VIAL As Ordered ONE; +LIDOCAINE 4% INJ 5ML AMP INH ONE; +LR 1,000 ML IV ONE; +THROMBIN SOLN 5,000 UNITS VIAL As Ordered ONE
[2021-11-23] MEDS ORDERED: LIDOCAINE VISCOUS 2% SOLN 15ML UDC As Ordered ONE (08:56)
[2021-11-23] MEDS ORDERED: EPINEPHrine 1MG/10ML SYRINGE 1.5IN As Ordered ONE (08:57)
[2021-11-23] MEDS ORDERED: ROCURONIUM BROMIDE 50 MG/5 ML VIAL As Ordered ONE (09:02)
[2021-11-23] MEDS ORDERED: dexameTHASONE 4 MG/ML 1ML VIAL (J1100 PER 1MG) As Ordered ONE (09:02)
[2021-11-23] MEDS ORDERED: LIDOCAINE 2% 100MG/5ML SDV (FOR ANES.) As Ordered ONE (09:02)
[2021-11-23] MEDS ORDERED: fentaNYL 100 MCG/2 ML INJECTION As Ordered ONE (09:02)
[2021-11-23] MEDS ORDERED: propofoL 200 MG/20 ML VIAL As Ordered ONE (09:02)
[2021-11-23] MEDS ORDERED: MIDAZOLAM INJ 2MG/2ML VIAL (J2250 PER 1MG) As Ordered ONE (09:04)
[2021-11-23] MEDS ORDERED: ONDANSETRON 4MG/2ML VIAL As Ordered ONE (09:05)
[2021-11-23] MEDS ORDERED: SUGAMMADEX SODIUM 500 MG/5 ML VIAL (BRIDION) As Ordered ONE (09:05)
[2021-11-23] MEDS ORDERED: PHENYLephrine 500MCG 5ML (100MCG/ML) SYRINGE As Ordered ONE (10:14)
[2021-11-23] MEDS ORDERED: ePHEDrine SULFATE 25 MG/5 ML(5MG/ML) SYRINGE As Ordered ONE (10:26)
[2021-11-23] MEDS ORDERED: PERCOCET 5MG/325MG TAB PO PRN (11:20)
[2021-11-23] MEDS ORDERED: ONDANSETRON 4MG/2ML VIAL IV PRN (11:20)
[2021-11-23 12:45] VITALS: BP 109/55
== END 2021-11-23 13:54 | disposition home or self-care (01) ==
LOC: M SDC 08:55
PROVIDERS: ATTEND Internal Medicine Pulmonary Disease
DX: R91.8 Other nonspecific abnormal finding of lung field (principal); R59.0 Localized enlarged lymph nodes; Z85.118 Personal history of other malignant neoplasm of bronchus and lung; Z92.21 Personal history of antineoplastic chemotherapy; Z92.3 Personal history of irradiation; Z87.891 Personal history of nicotine dependence; Z88.2 Allergy status to sulfonamides; E03.9 Hypothyroidism, unspecified; K21.9 Gastro-esophageal reflux disease without esophagitis; F41.9 Anxiety disorder, unspecified
CPT/HCPCS: 31623; 31624; 31628; 31654; 71045; 88104; 88108; 88305; 88313; J0171; J1100; J2250; J2370; J2405; J3010

== ENCOUNTER → 2021-12-29 | Outpatient (CLI) | payer MEDICARE, OTHER ==
[~2021-12-29] MED LIST changes: -ALBUTEROL SULFATE 2.5 MG/0.5 ML INH NEB SOLN INH ONE; -CETACAINE SPRAY 5GM As Ordered ONE; -EPINEPHrine INJ 1 MG/ML 1ML AMP As Ordered ONE; -LIDOCAINE 1% SDV 30ML VIAL As Ordered ONE; -LIDOCAINE 4% INJ 5ML AMP INH ONE; -LR 1,000 ML IV ONE; +OMEP40CA4 PO; -THROMBIN SOLN 5,000 UNITS VIAL As Ordered ONE
[2021-12-29 12:28] VITALS: BP 106/55
== END ==
LOC: M IRPRO 09:13
PROVIDERS: ATTEND Internal Medicine Pulmonary Disease
DX: J90 Pleural effusion, not elsewhere classified (principal)

== ENCOUNTER → 2022-01-17 | Outpatient (CLI) | payer MEDICARE, OTHER ==
[~2022-01-17] MED LIST changes: +E-Z-GAS II EFFERVESCENT PACKET (SODIUM BICARB./CITRIC ACID/SIMETHICONE) As Ordered ONE; +E-Z-HD 98% w/w 340GM SUSP BTL As Ordered ONE; +E-Z-PAQUE 96% w/w SUSP 176GM BTL As Ordered ONE
== END ==
LOC: M RAD 08:52
PROVIDERS: ATTEND Internal Medicine Gastroenterology
DX: R13.19 Other dysphagia (principal)

== ENCOUNTER → 2022-01-18 | Outpatient (CLI) | payer MEDICARE, OTHER ==
[~2022-01-18] MED LIST changes: -E-Z-GAS II EFFERVESCENT PACKET (SODIUM BICARB./CITRIC ACID/SIMETHICONE) As Ordered ONE; -E-Z-HD 98% w/w 340GM SUSP BTL As Ordered ONE; -E-Z-PAQUE 96% w/w SUSP 176GM BTL As Ordered ONE
[2022-01-18 17:50] LABS: BASO # 0.1 10^3/uL (0.0-0.2); BASO % 0.7 % (0.0-1.0); EOS # 0.1 10^3/uL (0.0-0.5); EOS % 1.2 % (0.0-3.0); HEMATOCRIT 40.3 % (36.0-47.0); HEMOGLOBIN 12.7 g/dl (12.0-15.5); LYMPH # 0.5 10^3/uL (1.5-5.0); LYMPH % 5.5 % (24.0-44.0); MEAN CORPUSCULAR HEMOGLOBIN 26.6 pg (27.0-33.0); MEAN CORPUSCULAR HGB CONC 31.5 g/dl (32.0-36.5); MEAN CORPUSCULAR VOLUME 84.5 fl (80.0-96.0); MONO # 0.6 10^3/uL (0.0-0.8); MONO % 6.3 % (2.0-8.0); NEUTROPHILS # 8.2 10^3/uL (1.5-8.5); PLATELET COUNT, AUTOMATED 466 10^3/uL (150-450); RED BLOOD COUNT 4.77 10^6/uL (4.00-5.40); WHITE BLOOD COUNT 9.5 10^3/uL (4.0-10.0)
[2022-01-18 17:52] LABS: ALBUMIN 3.5 GM/DL (3.2-5.2); ALT/SGPT 15 U/L (12-78); BILIRUBIN,DIRECT 0.2 MG/DL (0.0-0.2); BILIRUBIN,TOTAL 0.4 MG/DL (0.2-1.0); BLOOD UREA NITROGEN 11 MG/DL (7-18); CARBON DIOXIDE LEVEL 31 MEQ/L (21-32); CHLORIDE LEVEL 107 MEQ/L (98-107); CREATININE FOR GFR 1.02 MG/DL (0.55-1.30); GLUCOSE, FASTING 95 MG/DL (70-100); POTASSIUM SERUM 4.2 MEQ/L (3.5-5.1); SODIUM LEVEL 141 MEQ/L (136-145); TOTAL PROTEIN 7.6 GM/DL (6.4-8.2)
[2022-01-18 18:07] LABS: ERYTHROCYTE SEDIMENTATION RATE 23 mm/hr (0-30)
[2022-01-18 18:11] LABS: HEPATITIS B SURFACE ANTIGEN NEGATIVE (NEGATIVE)
== END ==
LOC: M PLALAB 13:32
PROVIDERS: ATTEND Internal Medicine Gastroenterology
DX: R13.19 Other dysphagia (principal)

== ENCOUNTER → 2022-03-16 | Outpatient (CLI) | payer MEDICARE, OTHER ==
[~2022-03-16] MED LIST changes: +ANOR1AER INH; +BUDE3CAP INH; +ERGO500029 PO; +GUAISYP9 PO
== END ==
LOC: M CARPUL 09:09
PROVIDERS: ATTEND Internal Medicine Pulmonary Disease
DX: J90 Pleural effusion, not elsewhere classified (principal)

== ENCOUNTER 2022-04-28 12:23 | Emergency (ER) | payer MEDICARE, OTHER ==
[~2022-04-28] VITALS: Ht 162.6 cm; Wt 59.0 kg
[2022-04-28 12:59] LABS: ABG BASE EXCESS 2.2 (-2.0-2.0); ABG HCO3 25.6 MEQ/L (22.0-26.0); ABG O2 SATURATION 96.8 % (95.0-99.0); ABG PARTIAL PRESSURE O2 82.7 mmHg (75.0-100.0); ABG STANDARD HCO3 26.4 MEQ/L (22.0-26.0); ABG TOTAL CO2 26.7 MEQ/L (23.0-31.0); ABG pH (ARTERIAL) 7.469 UNITS (7.350-7.450)
[2022-04-28 13:40] LABS: BASO # 0.1 10^3/uL (0.0-0.2); BASO % 0.7 % (0.0-1.0); EOS # 0.1 10^3/uL (0.0-0.5); EOS % 0.7 % (0.0-3.0); HEMOGLOBIN 14.1 g/dl (12.0-15.5); LYMPH # 0.4 10^3/uL (1.5-5.0); LYMPH % 3.6 % (24.0-44.0); MEAN CORPUSCULAR HEMOGLOBIN 26.7 pg (27.0-33.0); MEAN CORPUSCULAR VOLUME 83.3 fl (80.0-96.0); MONO # 0.4 10^3/uL (0.0-0.8); MONO % 3.3 % (2.0-8.0); NEUTROPHILS % 91.2 % (36.0-66.0); PLATELET COUNT, AUTOMATED 415 10^3/uL (150-450); RED BLOOD COUNT 5.28 10^6/uL (4.00-5.40); WHITE BLOOD COUNT 10.9 10^3/uL (4.0-10.0)
[2022-04-28 14:32] LABS: ALBUMIN 3.5 GM/DL (3.2-5.2); ALT/SGPT 18 U/L (12-78); BILIRUBIN,DIRECT 0.2 MG/DL (0.0-0.2); BILIRUBIN,TOTAL 0.5 MG/DL (0.2-1.0); BLOOD UREA NITROGEN 14 MG/DL (7-18); CALCIUM LEVEL 9.1 MG/DL (8.8-10.2); CARBON DIOXIDE LEVEL 29 MEQ/L (21-32); CHLORIDE LEVEL 105 MEQ/L (98-107); CREATININE FOR GFR 0.74 MG/DL (0.55-1.30); GLOMERULAR FILTRATION RATE > 60.0 (>39); GLUCOSE, FASTING 94 MG/DL (70-100); NT-PRO BNP 581 PG/ML (<125); POTASSIUM SERUM 3.7 MEQ/L (3.5-5.1); SODIUM LEVEL 139 MEQ/L (136-145); TOTAL PROTEIN 7.5 GM/DL (6.4-8.2)
[2022-04-28 14:33] LABS: CK-MB VALUE MASS 1.5 NG/ML (<3.6); MB/CK RELATIVE INDEX 1.53 (< OR =4)
[2022-04-28] MEDS ORDERED: ISOVUE-370 76% 100ML VIAL As Ordered ONE (14:48)
[2022-04-28 15:40] LABS: LIPASE 128 U/L (73-393)
[2022-04-28 15:52] LABS: CK-MB VALUE MASS 2.5 NG/ML (<3.6); MB/CK RELATIVE INDEX 2.27 (< OR =4)
[2022-04-28] MEDS ORDERED: ASPIRIN 81 MG CHEW TABLET PO ONE (16:00)
[2022-04-28 16:20] LABS: INR 0.91; PARTIAL THROMBOPLASTIN TIME 30.4 SECONDS (25.9-37.0); PROTHROMBIN TIME 12.7 SECONDS (12.7-14.5)
[2022-04-28 16:45] LABS: APPEARANCE, URINE MANUAL CLEAR (CLEAR); COLOR, URINE MANUAL DK YELLOW (YELLOW); SPECIFIC GRAVITY,URINE MANUAL 1.015 (1.002-1.035)
[2022-04-28 16:46] LABS: BILIRUBIN, URINE MANUAL NEGATIVE (NEGATIVE); BLOOD URINE MANUAL POSITIVE (NEGATIVE); GLUCOSE, URINE (UA) MANUAL NEGATIVE (NEGATIVE); KETONE, URINE MANUAL 2+ mg/dL (NEGATIVE); LEUKOCYTE ESTERASE, URINE MAN TRACE (NEGATIVE); NITRITE, URINE MANUAL NEGATIVE (NEGATIVE); PROTEIN, URINE MANUAL TRACE mg/dL (NEGATIVE); UROBILINOGEN, URINE MANUAL NORMAL (NORMAL)
[2022-04-28 16:54] LABS: BACTERIA, URINE NONE SEEN; HYALINE CAST, URINE NONE SEEN /lpf (0-1); MUCUS, URINE SMALL AMOUNT (NEGATIVE); RBC, URINE TNTC /hpf (0-3); SQUAMOUS EPITHELIAL CELL URINE MOD AMOUNT /hpf (SMALL AMT)
[2022-04-28 19:12] VITALS: BP 126/65
== END 2022-04-28 19:13 | disposition short-term general hospital (02) ==
LOC: M ED 12:23
DX: I21.4 Non-ST elevation (NSTEMI) myocardial infarction (principal); E03.9 Hypothyroidism, unspecified; Z87.891 Personal history of nicotine dependence; Z88.2 Allergy status to sulfonamides; Z79.899 Other long term (current) drug therapy; Z79.1 Long term (current) use of non-steroidal anti-inflammatories (NSAID)
CPT/HCPCS: 36600; 71045; 71275; 74177; 80048; 80076; 81000; 82550; 82553; 82803; 83690; 83880; 84443; 84484; 85025; 85610; 85730; 87040; 87486; 87581; 87633; 87798; 93005; 93041; 94760; 99285; Q9967

== ENCOUNTER 2022-06-02 06:55 | Emergency (ER) | payer MEDICARE, OTHER ==
[~2022-06-02] VITALS: Ht 162.6 cm; Wt 53.2 kg
[~2022-06-02 06:55] MED LIST changes: +ASPI81CH33 PO; +ATOR1TAB21; +METO1TAB32
[2022-06-02] MEDS ORDERED: KETOROLAC 30 MG/ML 1ML VIAL IV ONE (08:00)
[2022-06-02] MEDS ORDERED: NS 500 ML IV ONE (08:00)
[2022-06-02 08:14] LABS: BASO # 0.1 10^3/uL (0.0-0.2); BASO % 0.5 % (0.0-1.0); EOS # 0.2 10^3/uL (0.0-0.5); EOS % 1.6 % (0.0-3.0); HEMATOCRIT 37.5 % (36.0-47.0); LYMPH # 0.5 10^3/uL (1.5-5.0); MEAN CORPUSCULAR VOLUME 84.5 fl (80.0-96.0); MONO # 0.6 10^3/uL (0.0-0.8); MONO % 5.4 % (2.0-8.0); NEUTROPHILS # 10.2 10^3/uL (1.5-8.5); PLATELET COUNT, AUTOMATED 381 10^3/uL (150-450); RED BLOOD COUNT 4.44 10^6/uL (4.00-5.40); WHITE BLOOD COUNT 11.6 10^3/uL (4.0-10.0)
[2022-06-02 08:55] LABS: ALBUMIN 3.4 GM/DL (3.2-5.2); ALT/SGPT 17 U/L (12-78); BILIRUBIN,DIRECT < 0.1 MG/DL (0.0-0.2); BILIRUBIN,TOTAL 0.8 MG/DL (0.2-1.0); LIPASE 176 U/L (73-393); TOTAL PROTEIN 7.2 GM/DL (6.4-8.2)
[2022-06-02] MEDS ORDERED: CEPH500C PO (09:07)
[2022-06-02] MEDS ORDERED: FLOM0.4C39 PO (09:09)
[2022-06-02] MEDS ORDERED: ACET-653 PO (09:09)
[2022-06-02 09:21] VITALS: BP 126/62
== END 2022-06-02 09:23 | disposition home or self-care (01) ==
LOC: M ED 06:55
DX: N20.1 Calculus of ureter (principal); N20.0 Calculus of kidney; E78.5 Hyperlipidemia, unspecified; E03.9 Hypothyroidism, unspecified; C34.90 Malignant neoplasm of unspecified part of unspecified bronchus or lung; I25.2 Old myocardial infarction; Z87.442 Personal history of urinary calculi; Z86.79 Personal history of other diseases of the circulatory system; Z88.2 Allergy status to sulfonamides
CPT/HCPCS: 74176; 80047; 80076; 81000; 81015; 83690; 85025; 87086; 96361; 96374; 99284; J1885

== ENCOUNTER 2022-06-08 10:45 | Outpatient (RCR) | payer MEDICARE, OTHER ==
[~2022-06-08 10:45] MED LIST changes: +ACET-653 PO; +CEPH500C PO; +FLOM0.4C39 PO
== END 2022-06-09 ==
LOC: M PT 10:45
PROVIDERS: ATTEND Internal Medicine Medical Oncology
DX: C34.91 Malignant neoplasm of unspecified part of right bronchus or lung (principal)

== ENCOUNTER 2022-06-22 10:45 | Outpatient (RCR) | payer MEDICARE, OTHER ==
[2022-07-13] MEDS ORDERED: VITA1CAP25 PO (09:59)
== END 2022-07-10 ==
LOC: M PT 10:45
PROVIDERS: ATTEND Internal Medicine Medical Oncology
DX: C34.91 Malignant neoplasm of unspecified part of right bronchus or lung (principal)

== ENCOUNTER → 2022-07-10 | Outpatient (REF) | payer MEDICARE, OTHER ==
[~2022-07-10] MED LIST changes: +VITA1CAP25 PO
[2022-07-10 13:13] LABS: APPEARANCE, URINE MANUAL CLOUDY (CLEAR); BILIRUBIN, URINE MANUAL NEGATIVE (NEGATIVE); BLOOD URINE MANUAL POSITIVE (NEGATIVE); COLOR, URINE MANUAL BROWN (YELLOW); GLUCOSE, URINE (UA) MANUAL NEGATIVE (NEGATIVE); KETONE, URINE MANUAL NEGATIVE (NEGATIVE); LEUKOCYTE ESTERASE, URINE MAN POSITIVE (NEGATIVE); NITRITE, URINE MANUAL NEGATIVE (NEGATIVE); PROTEIN, URINE MANUAL 2+ mg/dL (NEGATIVE); UROBILINOGEN, URINE MANUAL NORMAL (NORMAL)
[2022-07-10 13:22] LABS: RBC, URINE TNTC /hpf (0-3)
[2022-07-10 13:25] LABS: AMORPHOUS SEDIMENT, URINE SMALL AMOUNT (NEGATIVE); BACTERIA, URINE SMALL AMOUNT; CALCIUM OXALATE CRYSTALS,URINE SMALL AMOUNT /hpf; HYALINE CAST, URINE NONE SEEN /lpf (0-1); MUCUS, URINE SMALL AMOUNT (NEGATIVE); SQUAMOUS EPITHELIAL CELL URINE SMALL AMOUNT /hpf (SMALL AMT); WBC, URINE 20-30 /hpf (0-3)
== END ==
LOC: M SFHCADAM 09:57
PROVIDERS: ATTEND Nurse Practitioner Women's Health
DX: Z01.818 Encounter for other preprocedural examination (principal); N20.0 Calculus of kidney

== ENCOUNTER → 2022-07-12 | Outpatient (CLI) | payer MEDICARE, OTHER | LOC: M LABSMTC 09:58 | PROVIDERS: ATTEND Anesthesiology | DX: Z01.812 Encounter for preprocedural laboratory examination (principal); Z11.52 Encounter for screening for COVID-19 ==

== ENCOUNTER → 2022-07-12 | Outpatient (CLI) | payer MEDICARE, OTHER ==
[2022-07-12 15:17] LABS: FREE T4 1.61 NG/DL (0.76-1.46); THYROID STIMULATING HORMONE 2.64 uIU/ML (0.358-3.740)
== END ==
LOC: M PLALAB 11:10
PROVIDERS: ATTEND Nurse Practitioner Family
DX: E03.9 Hypothyroidism, unspecified (principal); Z79.890 Hormone replacement therapy

== ENCOUNTER → 2022-07-12 | Outpatient (CLI) | payer MEDICARE, OTHER ==
[2022-07-12 14:15] LABS: HEMATOCRIT 44.9 % (36.0-47.0); HEMOGLOBIN 13.7 g/dl (12.0-15.5); MEAN CORPUSCULAR HEMOGLOBIN 25.9 pg (27.0-33.0); MEAN CORPUSCULAR HGB CONC 30.5 g/dl (32.0-36.5); PLATELET COUNT, AUTOMATED 393 10^3/uL (150-450); RED BLOOD COUNT 5.28 10^6/uL (4.00-5.40)
[2022-07-12 14:33] LABS: INR 0.96
[2022-07-12 14:53] LABS: BLOOD UREA NITROGEN 14 MG/DL (7-18); CALCIUM LEVEL 9.7 MG/DL (8.8-10.2); CARBON DIOXIDE LEVEL 32 MEQ/L (21-32); CHLORIDE LEVEL 103 MEQ/L (98-107); CREATININE FOR GFR 0.67 MG/DL (0.55-1.30); GLOMERULAR FILTRATION RATE > 60.0 (>39); GLUCOSE, FASTING 95 MG/DL (70-100); SODIUM LEVEL 140 MEQ/L (136-145)
[2022-07-12 16:19] LABS: APPEARANCE, URINE MANUAL HAZY (CLEAR); COLOR, URINE MANUAL YELLOW (YELLOW)
[2022-07-12 16:20] LABS: BILIRUBIN, URINE MANUAL NEGATIVE (NEGATIVE); BLOOD URINE MANUAL POSITIVE (NEGATIVE); GLUCOSE, URINE (UA) MANUAL NEGATIVE (NEGATIVE); KETONE, URINE MANUAL NEGATIVE (NEGATIVE); LEUKOCYTE ESTERASE, URINE MAN POSITIVE (NEGATIVE); NITRITE, URINE MANUAL NEGATIVE (NEGATIVE); PROTEIN, URINE MANUAL TRACE mg/dL (NEGATIVE); UROBILINOGEN, URINE MANUAL NORMAL (NORMAL)
[2022-07-12 17:04] LABS: WBC, URINE 30-40 /hpf (0-3)
[2022-07-12 17:05] LABS: RBC, URINE 30-40 /hpf (0-3)
[2022-07-12 17:06] LABS: BACTERIA, URINE SMALL AMOUNT; SQUAMOUS EPITHELIAL CELL URINE SMALL AMOUNT /hpf (SMALL AMT)
[2022-07-12 17:07] LABS: HYALINE CAST, URINE NONE SEEN /lpf (0-1); MUCUS, URINE SMALL AMOUNT (NEGATIVE); TRANSITIONAL EPI CELLS, URINE SMALL AMOUNT /hpf
== END ==
LOC: M PLALAB 11:08
PROVIDERS: ATTEND Nurse Practitioner Women's Health
DX: Z01.818 Encounter for other preprocedural examination (principal); N20.0 Calculus of kidney

== ENCOUNTER → 2022-07-19 | Outpatient (REF) | payer MEDICARE, OTHER ==
[2022-07-19 18:38] LABS: APPEARANCE, URINE MANUAL CLOUDY (CLEAR); BILIRUBIN, URINE MANUAL NEGATIVE (NEGATIVE); BLOOD URINE MANUAL POSITIVE (NEGATIVE); COLOR, URINE MANUAL YELLOW (YELLOW); GLUCOSE, URINE (UA) MANUAL NEGATIVE (NEGATIVE); KETONE, URINE MANUAL NEGATIVE (NEGATIVE); LEUKOCYTE ESTERASE, URINE MAN POSITIVE (NEGATIVE); NITRITE, URINE MANUAL POSITIVE (NEGATIVE); PROTEIN, URINE MANUAL 2+ mg/dL (NEGATIVE); SPECIFIC GRAVITY,URINE MANUAL 1.015 (1.002-1.035); UROBILINOGEN, URINE MANUAL NORMAL (NORMAL)
[2022-07-19 19:05] LABS: BACTERIA, URINE LARGE AMOUNT; SQUAMOUS EPITHELIAL CELL URINE SMALL AMOUNT /hpf (SMALL AMT); WBC, URINE TNTC /hpf (0-3)
== END ==
LOC: M LAB REF 17:44
PROVIDERS: ATTEND Nurse Practitioner Family
DX: R39.15 Urgency of urination (principal)

== ENCOUNTER → 2022-07-31 | Outpatient (CLI) | payer MEDICARE, OTHER ==
[~2022-07-31] MED LIST changes: +GASTROGRAFIN SOLUTION 30ML As Ordered ONE; +ISOVUE-370 76% 100ML VIAL As Ordered ONE
== END ==
LOC: M RAD 13:35
PROVIDERS: ATTEND Internal Medicine Medical Oncology
DX: C34.91 Malignant neoplasm of unspecified part of right bronchus or lung (principal)
CPT/HCPCS: 71260; 74177; Q9963; Q9967

== ENCOUNTER → 2022-08-15 | Outpatient (REF) | payer MEDICARE, OTHER ==
[~2022-08-15] MED LIST changes: -GASTROGRAFIN SOLUTION 30ML As Ordered ONE; -ISOVUE-370 76% 100ML VIAL As Ordered ONE
[2022-08-15 14:40] LABS: APPEARANCE, URINE MANUAL CLOUDY (CLEAR); COLOR, URINE MANUAL DK YELLOW (YELLOW); GLUCOSE, URINE (UA) MANUAL NEGATIVE (NEGATIVE); KETONE, URINE MANUAL 1+ mg/dL (NEGATIVE); PROTEIN, URINE MANUAL 1+ mg/dL (NEGATIVE); UROBILINOGEN, URINE MANUAL NORMAL (NORMAL)
[2022-08-15 14:41] LABS: BILIRUBIN, URINE MANUAL 1+ (NEGATIVE); BLOOD URINE MANUAL POSITIVE (NEGATIVE); LEUKOCYTE ESTERASE, URINE MAN POSITIVE (NEGATIVE); NITRITE, URINE MANUAL NEGATIVE (NEGATIVE)
[2022-08-15 15:07] LABS: BACTERIA, URINE MOD AMOUNT; RBC, URINE TNTC /hpf (0-3); SQUAMOUS EPITHELIAL CELL URINE SMALL AMOUNT /hpf (SMALL AMT); WBC, URINE 20-30 /hpf (0-3)
[2022-08-15 15:08] LABS: AMORPHOUS SEDIMENT, URINE SMALL AMOUNT (NEGATIVE); HYALINE CAST, URINE NONE SEEN /lpf (0-1)
== END ==
LOC: M SFHCADAM 11:15
PROVIDERS: ATTEND Urology
DX: Z01.818 Encounter for other preprocedural examination (principal)

== ENCOUNTER → 2022-08-15 | Outpatient (CLI) | payer MEDICARE, OTHER ==
[~2022-08-15] MED LIST changes: +ATOR1TAB21 PO; +CEFD300CAP PO; +METO1TAB32 PO; +MUCI600T31 PO; +ONDA-83 PO
== END ==
LOC: M LABSMTC 10:54
PROVIDERS: ATTEND Anesthesiology
DX: Z01.818 Encounter for other preprocedural examination (principal); Z11.52 Encounter for screening for COVID-19

== ENCOUNTER 2022-08-16 12:15 | Day surgery (SDC) | payer MEDICARE, OTHER ==
[~2022-08-16] VITALS: Ht 162.6 cm; Wt 43.5 kg
[~2022-08-16 12:15] MED LIST changes: -ATOR1TAB21 PO; -CEFD300CAP PO; -METO1TAB32 PO; -MUCI600T31 PO; -ONDA-83 PO; +ceFAZolin SOD 2 GM in IV 1 EA IV ONE
[2022-08-16] MEDS ORDERED: ISOVUE-300 61% 50ML VIAL As Ordered ONE (13:59)
[2022-08-16] MEDS ORDERED: fentaNYL 100 MCG/2 ML INJECTION As Ordered ONE (14:00)
[2022-08-16] MEDS ORDERED: KETOROLAC 60MG 2ML VIAL As Ordered ONE (14:00)
[2022-08-16] MEDS ORDERED: ONDANSETRON 4MG 2ML VIAL As Ordered ONE (14:00)
[2022-08-16] MEDS ORDERED: propofoL 200 MG/20 ML VIAL As Ordered ONE (14:00)
[2022-08-16] MEDS ORDERED: MIDAZOLAM INJ 2MG/2ML VIAL (J2250 PER 1MG) As Ordered ONE (14:00)
[2022-08-16] MEDS ORDERED: LIDOCAINE 2% 100MG/5ML SDV (FOR ANES.) As Ordered ONE (14:00)
[2022-08-16] MEDS ORDERED: ACETAMINOPHEN 1000MG 100ML IV BAG As Ordered ONE (14:46)
[2022-08-16] MEDS ORDERED: PHENYLephrine 500MCG 5ML (100MCG/ML) SYRINGE As Ordered ONE (14:46)
[2022-08-16] MEDS ORDERED: LR 1,000 ML IV SCH (15:35)
[2022-08-16] MEDS ORDERED: oxyCODONE 5MG TAB PO PRN (15:35)
[2022-08-16] MEDS ORDERED: fentaNYL 100 MCG/2 ML INJECTION IV PRN (15:35)
[2022-08-16] MEDS ORDERED: ONDANSETRON 4MG 2ML VIAL IV PRN (15:35)
[2022-08-16] MEDS ORDERED: HYDROMORPHONE HCL 0.5 MG/ 0.5 ML SYRINGE (J1170 PER 1) IV PRN (15:35)
[2022-08-16] MEDS ORDERED: CIPR-249 PO (15:42)
[2022-08-16] MEDS ORDERED: ACETAMINOPHEN TAB 650MG DOSE (2X325MG) PO PRN (16:10)
[2022-08-16 18:00] VITALS: BP 111/58
== END 2022-08-16 18:14 | disposition home or self-care (01) ==
LOC: M SDC 12:15
PROVIDERS: ATTEND Urology
DX: N20.0 Calculus of kidney (principal); K21.9 Gastro-esophageal reflux disease without esophagitis; C34.01 Malignant neoplasm of right main bronchus; E03.9 Hypothyroidism, unspecified; F41.9 Anxiety disorder, unspecified; Z79.82 Long term (current) use of aspirin; Z79.899 Other long term (current) drug therapy
CPT/HCPCS: 52332; 52352; 74420; 82365; C1769; C1894; C2617; J0131; J0690; J1100; J1885; J2370; J2405; J3010; Q9967

== ENCOUNTER 2022-08-27 20:42 | Inpatient (IN) | payer MEDICARE, OTHER ==
[~2022-08-27] VITALS: Ht 162.6 cm; Wt 56.3 kg
[~2022-08-27 20:42] MED LIST changes: -ceFAZolin SOD 2 GM in IV 1 EA IV ONE
[2022-08-27 22:35] LABS: BASO # 0.1 10^3/uL (0.0-0.2); BASO % 0.6 % (0.0-1.0); EOS # 0.3 10^3/uL (0.0-0.5); HEMATOCRIT 40.7 % (36.0-47.0); HEMOGLOBIN 12.7 g/dl (12.0-15.5); LYMPH # 0.8 10^3/uL (1.5-5.0); LYMPH % 8.1 % (24.0-44.0); MEAN CORPUSCULAR HEMOGLOBIN 25.4 pg (27.0-33.0); MEAN CORPUSCULAR HGB CONC 31.2 g/dl (32.0-36.5); MEAN CORPUSCULAR VOLUME 81.4 fl (80.0-96.0); MONO # 0.7 10^3/uL (0.0-0.8); MONO % 7.1 % (2.0-8.0); NEUTROPHILS # 8.1 10^3/uL (1.5-8.5); NEUTROPHILS % 80.6 % (36.0-66.0); PLATELET COUNT, AUTOMATED 414 10^3/uL (150-450); WHITE BLOOD COUNT 10.1 10^3/uL (4.0-10.0)
[2022-08-27] MEDS ORDERED: methylPREDNISolone 125MG 2ML VIAL IV ONE (22:55)
[2022-08-27 22:58] LABS: CK-MB VALUE MASS < 1.0 NG/ML (<3.6)
[2022-08-27 23:00] LABS: BILIRUBIN,DIRECT < 0.1 MG/DL (<0.4)
[2022-08-27 23:02] LABS: THYROID STIMULATING HORMONE 2.036 uIU/ML (0.55-4.78)
[2022-08-27 23:21] LABS: ALKALINE PHOSPHATASE 88 U/L (46-116); ALT/SGPT < 9 U/L (7.0-40); AST/SGOT 22 U/L (<34); BILIRUBIN,TOTAL 0.3 MG/DL (0.3-1.2); BLOOD UREA NITROGEN 15 MG/DL (9-23); CALCIUM LEVEL 9.6 MG/DL (8.3-10.6); CARBON DIOXIDE LEVEL 25 MMOL/L (20-31); CHLORIDE LEVEL 103 MMOL/L (98-107); CPK CREATINE PHOSPHOKINASE 82 U/L (34-145); CREATININE FOR GFR 0.72 MG/DL (0.55-1.30); GLOMERULAR FILTRATION RATE > 60.0 (>39); GLUCOSE, FASTING 88 MG/DL (74-106); MB/CK RELATIVE INDEX 1.21 (< OR =4); POTASSIUM SERUM 4.4 MMOL/L (3.5-5.1); SODIUM LEVEL 140 MMOL/L (136-145); TOTAL PROTEIN 6.3 G/DL (5.7-8.2)
[2022-08-27] MEDS ORDERED: ISOVUE-370 76% 100ML VIAL As Ordered ONE (23:36)
[2022-08-28] MEDS ORDERED: MORPHINE 2 MG/ML 1ML VIAL IV ONE (00:55)
[2022-08-28] MEDS ORDERED: LIAL1.2T PO (01:56)
[2022-08-28] MEDS ORDERED: ATOR1TAB21 PO (01:56)
[2022-08-28] MEDS ORDERED: ONDA-83 PO (01:56)
[2022-08-28] MEDS ORDERED: METO1TAB32 PO (01:56)
[2022-08-28] MEDS ORDERED: HOME MED LIST COMPLETE! XX SCH (02:00)
[2022-08-28] MEDS ORDERED: ACETAMINOPHEN TAB 650MG DOSE (2X325MG) PO PRN (02:05)
[2022-08-28] MEDS ORDERED: PERCOCET 5MG/325MG TAB PO PRN (02:05)
[2022-08-28] MEDS ORDERED: guaiFENesin SYRUP 200MG 10ML UDC PO PRN (02:05)
[2022-08-28] MEDS ORDERED: ONDANSETRON 4MG TAB PO PRN (02:05)
[2022-08-28] MEDS ORDERED: IPRATROPIUM 0.5MG/ALBUTEROL 2.5MG INH SOL UD 3ML (DUONEB) NEB PRN (02:05)
[2022-08-28] MEDS: cefTRIAXone SOD 1 GM in D5W MINI-BAG PLUS 50 ML IV SCH (03:44)
[2022-08-28] MEDS: LEVOTHYROXINE 88MCG TABLET (0.088 MG) PO SCH (06:33)
[2022-08-28 06:39] LABS: ABG BASE EXCESS 6.3 (-2.0-2.0); ABG HCO3 31.4 MEQ/L (22.0-26.0); ABG O2 SATURATION 97.8 % (95.0-99.0); ABG PARTIAL PRESSURE CO2 47.1 mmHg (35.0-45.0); ABG PARTIAL PRESSURE O2 105.7 mmHg (75.0-100.0); ABG STANDARD HCO3 30.2 MEQ/L (22.0-26.0); ABG TOTAL CO2 32.9 MEQ/L (23.0-31.0); ABG pH (ARTERIAL) 7.442 UNITS (7.350-7.450)
[2022-08-28 07:37] LABS: HEMATOCRIT 37.4 % (36.0-47.0); HEMOGLOBIN 11.7 g/dl (12.0-15.5); MEAN CORPUSCULAR HEMOGLOBIN 25.5 pg (27.0-33.0); MEAN CORPUSCULAR HGB CONC 31.3 g/dl (32.0-36.5); MEAN CORPUSCULAR VOLUME 81.7 fl (80.0-96.0); PLATELET COUNT, AUTOMATED 383 10^3/uL (150-450); RED BLOOD COUNT 4.58 10^6/uL (4.00-5.40); WHITE BLOOD COUNT 4.5 10^3/uL (4.0-10.0)
[2022-08-28 07:55] LABS: MAGNESIUM LEVEL 1.6 MG/DL (1.8-2.4)
[2022-08-28 07:56] LABS: INR 0.96
[2022-08-28 07:57] LABS: PARTIAL THROMBOPLASTIN TIME 29.7 SECONDS (24.8-34.2)
[2022-08-28 08:01] LABS: ALBUMIN 2.8 G/DL (3.2-5.2); ALKALINE PHOSPHATASE 80 U/L (46-116); ALT/SGPT < 9 U/L (7.0-40); AST/SGOT 12 U/L (<34); BILIRUBIN,TOTAL 0.2 MG/DL (0.3-1.2); BLOOD UREA NITROGEN 13 MG/DL (9-23); CALCIUM LEVEL 8.9 MG/DL (8.3-10.6); CARBON DIOXIDE LEVEL 27 MMOL/L (20-31); CHLORIDE LEVEL 102 MMOL/L (98-107); CREATININE FOR GFR 0.64 MG/DL (0.55-1.30); GLOMERULAR FILTRATION RATE > 60.0 (>39); GLUCOSE, FASTING 139 MG/DL (74-106); POTASSIUM SERUM 4.2 MMOL/L (3.5-5.1); SODIUM LEVEL 140 MMOL/L (136-145); TOTAL PROTEIN 5.9 G/DL (5.7-8.2)
[2022-08-28] MEDS ORDERED: ENOXAPARIN 40MG/0.4ML SYRINGE (J1650 PER 10MG) SC SCH (09:00)
[2022-08-28] MEDS: METOPROLOL SUCC *XL* 25MG TAB (TopROL *XL*) PO SCH ×2 (09:00→12:10)
[2022-08-28] MEDS: guaiFENesin ER 600 MG TAB PO SCH ×2 (12:08→21:21)
[2022-08-28] MEDS: MAG SULF 1GM/100ML (MAG RUN) 1 GM in IV 1 EA IV SCH ×2 (12:08→12:18)
[2022-08-28] MEDS: ALPRAZolam 0.25 MG TAB PO SCH ×2 (12:08→21:21)
[2022-08-28] MEDS: FLUoxetine 20MG CAP PO SCH (12:09)
[2022-08-28] MEDS: CALCIUM/VITAMIN D 500 MG TAB PO SCH ×2 (12:09→21:20)
[2022-08-28 15:30] VITALS: BP 119/52
[2022-08-28 20:00] VITALS: BP 102/44
[2022-08-28] MEDS ORDERED: ATORVASTATIN 20 MG TAB PO SCH (21:00)
[2022-08-29] MEDS: cefTRIAXone SOD 1 GM in D5W MINI-BAG PLUS 50 ML IV SCH (02:04)
[2022-08-29 05:00] VITALS: BP 106/63
[2022-08-29] MEDS: LEVOTHYROXINE 88MCG TABLET (0.088 MG) PO SCH (05:26)
[2022-08-29 05:45] VITALS: BP_SYST 110; BP_SYST 112; BP_DIAS 62; BP_DIAS 63
[2022-08-29 06:39] LABS: BASO # 0.1 10^3/uL (0.0-0.2); BASO % 0.9 % (0.0-1.0); EOS # 0.2 10^3/uL (0.0-0.5); HEMATOCRIT 36.7 % (36.0-47.0); HEMOGLOBIN 11.3 g/dl (12.0-15.5); LYMPH # 0.8 10^3/uL (1.5-5.0); LYMPH % 9.7 % (24.0-44.0); MEAN CORPUSCULAR HEMOGLOBIN 25.5 pg (27.0-33.0); MEAN CORPUSCULAR HGB CONC 30.8 g/dl (32.0-36.5); MEAN CORPUSCULAR VOLUME 82.8 fl (80.0-96.0); MONO # 0.6 10^3/uL (0.0-0.8); MONO % 7.2 % (2.0-8.0); NEUTROPHILS # 6.3 10^3/uL (1.5-8.5); NEUTROPHILS % 78.7 % (36.0-66.0); PLATELET COUNT, AUTOMATED 399 10^3/uL (150-450); RED BLOOD COUNT 4.43 10^6/uL (4.00-5.40)
[2022-08-29 07:09] LABS: MAGNESIUM LEVEL 2.1 MG/DL (1.8-2.4)
[2022-08-29 07:12] LABS: BLOOD UREA NITROGEN 13 MG/DL (9-23); CALCIUM LEVEL 8.8 MG/DL (8.3-10.6); CARBON DIOXIDE LEVEL 31 MMOL/L (20-31); CHLORIDE LEVEL 102 MMOL/L (98-107); CREATININE FOR GFR 0.76 MG/DL (0.55-1.30); GLOMERULAR FILTRATION RATE > 60.0 (>39); GLUCOSE, FASTING 78 MG/DL (74-106); POTASSIUM SERUM 3.5 MMOL/L (3.5-5.1); SODIUM LEVEL 141 MMOL/L (136-145)
[2022-08-29] MEDS ORDERED: ENOXAPARIN 30MG/0.3ML SYRINGE (J1650 PER 10MG) SC SCH (09:00)
[2022-08-29] MEDS: FLUoxetine 20MG CAP PO SCH (09:22)
[2022-08-29] MEDS: CALCIUM/VITAMIN D 500 MG TAB PO SCH (09:22)
[2022-08-29] MEDS: ALPRAZolam 0.25 MG TAB PO SCH (09:22)
[2022-08-29] MEDS: guaiFENesin ER 600 MG TAB PO SCH (09:22)
[2022-08-29 09:23] VITALS: BP 118/63
[2022-08-29] MEDS: METOPROLOL SUCC *XL* 25MG TAB (TopROL *XL*) PO SCH (09:23)
[2022-08-29] MEDS ORDERED: CEFD300CAP PO (11:24)
[2022-08-29] MEDS ORDERED: MUCI600T31 PO (11:24)
[2022-08-29 14:00] VITALS: BP 107/58
== END 2022-08-29 14:39 | disposition home or self-care (01) | DRG 690 ==
LOC: M ED 20:42 → M ED INP 20:43 → OBSVTOIN 08-28 07:24 → ENRESERV 08-28 13:28 → M MSPAV 08-28 15:25
PROVIDERS: ADMIT Family Medicine; ATTEND Student in an Organized Health Care Education/Training Program
DX: N39.0 Urinary tract infection, site not specified (principal); J90 Pleural effusion, not elsewhere classified; E87.3 Alkalosis; R31.9 Hematuria, unspecified; I10 Essential (primary) hypertension; E78.5 Hyperlipidemia, unspecified; E03.9 Hypothyroidism, unspecified; F41.9 Anxiety disorder, unspecified; Z85.118 Personal history of other malignant neoplasm of bronchus and lung; Z92.21 Personal history of antineoplastic chemotherapy; Z92.3 Personal history of irradiation; Z79.899 Other long term (current) drug therapy; Z88.2 Allergy status to sulfonamides; Z87.891 Personal history of nicotine dependence

== ENCOUNTER → 2022-10-27 | Outpatient (REF) | payer MEDICARE, OTHER ==
[~2022-10-27] MED LIST changes: +ATOR1TAB21 PO; +CEFD300CAP PO; +METO1TAB32 PO; +MUCI600T31 PO; +ONDA-83 PO
[2022-10-27 17:07] LABS: BASO # 0.1 10^3/uL (0.0-0.2); BASO % 0.6 % (0.0-1.0); EOS # 0.2 10^3/uL (0.0-0.5); EOS % 2.1 % (0.0-3.0); HEMATOCRIT 38.5 % (36.0-47.0); LYMPH # 0.6 10^3/uL (1.5-5.0); LYMPH % 7.2 % (24.0-44.0); MEAN CORPUSCULAR HEMOGLOBIN 26.8 pg (27.0-33.0); MEAN CORPUSCULAR HGB CONC 31.2 g/dl (32.0-36.5); MEAN CORPUSCULAR VOLUME 85.9 fl (80.0-96.0); MONO # 0.6 10^3/uL (0.0-0.8); MONO % 7.1 % (2.0-8.0); NEUTROPHILS % 82.5 % (36.0-66.0); PLATELET COUNT, AUTOMATED 480 10^3/uL (150-450); RED BLOOD COUNT 4.48 10^6/uL (4.00-5.40); WHITE BLOOD COUNT 8.5 10^3/uL (4.0-10.0)
[2022-10-27 17:38] LABS: ALBUMIN 3.2 G/DL (3.2-5.2); ALKALINE PHOSPHATASE 77 U/L (46-116); ALT/SGPT 11 U/L (7.0-40); AST/SGOT 18 U/L (<34); BILIRUBIN,TOTAL 0.3 MG/DL (0.3-1.2); BLOOD UREA NITROGEN 16 MG/DL (9-23); CALCIUM LEVEL 9.6 MG/DL (8.3-10.6); CARBON DIOXIDE LEVEL 38 MMOL/L (20-31); CHLORIDE LEVEL 98 MMOL/L (98-107); GLOMERULAR FILTRATION RATE > 60.0 (>39); GLUCOSE, FASTING 93 MG/DL (74-106); POTASSIUM SERUM 3.8 MMOL/L (3.5-5.1); SODIUM LEVEL 140 MMOL/L (136-145); TOTAL PROTEIN 6.5 G/DL (5.7-8.2)
== END ==
LOC: M LABDRWAD 16:30
PROVIDERS: ATTEND Internal Medicine Medical Oncology
DX: C34.11 Malignant neoplasm of upper lobe, right bronchus or lung (principal)

== ENCOUNTER → 2022-10-30 | Outpatient (CLI) | payer MEDICARE, OTHER ==
[~2022-10-30] MED LIST changes: +GASTROGRAFIN SOLUTION 30ML As Ordered ONE; +ISOVUE-370 76% 100ML VIAL As Ordered ONE
== END ==
LOC: M RAD 11:25
PROVIDERS: ATTEND Internal Medicine Medical Oncology
DX: C34.91 Malignant neoplasm of unspecified part of right bronchus or lung (principal)
CPT/HCPCS: 71260; 74177; Q9963; Q9967

== ENCOUNTER → 2022-11-16 | Outpatient (REF) | payer MEDICARE, OTHER ==
[~2022-11-16] MED LIST changes: -GASTROGRAFIN SOLUTION 30ML As Ordered ONE; -ISOVUE-370 76% 100ML VIAL As Ordered ONE
== END ==
LOC: M LAB REF 12:35
PROVIDERS: ATTEND Internal Medicine Gastroenterology
DX: R19.7 Diarrhea, unspecified (principal)

== ENCOUNTER 2022-11-27 11:31 | Inpatient (IN) | payer MEDICARE, OTHER ==
[~2022-11-27] VITALS: Ht 162.6 cm; Wt 43.0 kg
[2022-11-27 12:21] LABS: BASO % 0.1 % (0.0-1.0); HEMATOCRIT 44.3 % (36.0-47.0); HEMOGLOBIN 13.9 g/dl (12.0-15.5); LYMPH # 0.3 10^3/uL (1.5-5.0); LYMPH % 4.2 % (24.0-44.0); MEAN CORPUSCULAR HEMOGLOBIN 26.8 pg (27.0-33.0); MEAN CORPUSCULAR HGB CONC 31.4 g/dl (32.0-36.5); MEAN CORPUSCULAR VOLUME 85.4 fl (80.0-96.0); MONO # 0.6 10^3/uL (0.0-0.8); MONO % 7.8 % (2.0-8.0); NEUTROPHILS # 6.4 10^3/uL (1.5-8.5); NEUTROPHILS % 87.5 % (36.0-66.0); PLATELET COUNT, AUTOMATED 375 10^3/uL (150-450); RED BLOOD COUNT 5.19 10^6/uL (4.00-5.40); WHITE BLOOD COUNT 7.3 10^3/uL (4.0-10.0)
[2022-11-27 12:33] LABS: INR 0.87
[2022-11-27 12:51] LABS: CPK CREATINE PHOSPHOKINASE 77 U/L (34-145)
[2022-11-27 12:58] LABS: ABG HCO3 34.1 MEQ/L (22.0-26.0); ABG O2 SATURATION 99.4 % (95.0-99.0); ABG PARTIAL PRESSURE CO2 48.1 mmHg (35.0-45.0); ABG PARTIAL PRESSURE O2 218.3 mmHg (75.0-100.0); ABG STANDARD HCO3 32.9 MEQ/L (22.0-26.0); ABG TOTAL CO2 35.5 MEQ/L (23.0-31.0); ABG pH (ARTERIAL) 7.468 UNITS (7.350-7.450)
[2022-11-27] MEDS ORDERED: ISOVUE-370 76% 100ML VIAL As Ordered ONE (13:00)
[2022-11-27 13:13] LABS: ALBUMIN 3.7 G/DL (3.2-5.2); ALKALINE PHOSPHATASE 81 U/L (46-116); ALT/SGPT 24 U/L (7.0-40); AST/SGOT 22 U/L (<34); BILIRUBIN,DIRECT 0.2 MG/DL (<0.4); BILIRUBIN,TOTAL 0.6 MG/DL (0.3-1.2); CK-MB VALUE MASS < 1.0 NG/ML (<3.6); MB/CK RELATIVE INDEX 1.29 (< OR =4); THYROID STIMULATING HORMONE 3.868 uIU/ML (0.55-4.78); THYROXINE (T4) 10.2 UG/DL (4.5-10.9); TOTAL PROTEIN 7.1 G/DL (5.7-8.2)
[2022-11-27] MEDS ORDERED: ONDANSETRON 4MG 2ML VIAL IV ONE (13:30)
[2022-11-27] MEDS ORDERED: ACETAMINOPHEN TAB 650MG DOSE (2X325MG) PO ONE (13:35)
[2022-11-27 15:37] LABS: CK-MB VALUE MASS < 1.0 NG/ML (<3.6)
[2022-11-27 15:39] LABS: CPK CREATINE PHOSPHOKINASE 77 U/L (34-145); MB/CK RELATIVE INDEX 1.29 (< OR =4)
[2022-11-27] MEDS ORDERED: MOM 30ML SUSPENSION UDC PO PRN (17:45)
[2022-11-27] MEDS ORDERED: BISACODYL 5MG TAB PO PRN (17:45)
[2022-11-27] MEDS ORDERED: SENOKOT S TAB PO PRN (17:45)
[2022-11-27] MEDS ORDERED: MUCI600T31 PO (18:49)
[2022-11-27] MEDS ORDERED: OMEP40CA5 PO (18:49)
[2022-11-27] MEDS ORDERED: DRON2.5C11 PO (18:49)
[2022-11-27] MEDS ORDERED: PRED10TA2 PO (18:49)
[2022-11-27] MEDS ORDERED: HOME MED LIST COMPLETE! XX SCH (18:50)
[2022-11-27 20:34] LABS: INR 0.89; PARTIAL THROMBOPLASTIN TIME 20.1 SECONDS (24.8-34.2); PROTHROMBIN TIME 12.2 SECONDS (12.5-14.5)
[2022-11-27 20:37] LABS: D-DIMER QUANT 2893.32 ng/ml (<500)
[2022-11-27 20:44] VITALS: BP 105/58
[2022-11-27 20:44] LABS: LDH LACTATE DEHYDROGENASE 231 U/L (120-246)
[2022-11-27 20:47] LABS: FERRITIN 74.1 NG/ML (7.3-270.7)
[2022-11-27] MEDS ORDERED: REMDESIVIR 200 MG in NS 250 ML IV ONE (21:00)
[2022-11-27 21:14] LABS: ALBUMIN 3.4 G/DL (3.2-5.2); ALKALINE PHOSPHATASE 75 U/L (46-116); ALT/SGPT 34 U/L (7.0-40); AST/SGOT 36 U/L (<34); BILIRUBIN,DIRECT 0.1 MG/DL (<0.4); BILIRUBIN,TOTAL 0.4 MG/DL (0.3-1.2); TOTAL PROTEIN 6.7 G/DL (5.7-8.2)
[2022-11-27] MEDS: MIRALAX *UNIT DOSE* 17GM PACKET PO SCH (21:39)
[2022-11-27 21:43] LABS: C REACTIVE PROTEIN QUANTITATIV < 0.40 MG/DL (<1.0)
[2022-11-27] MEDS ORDERED: SODIUM CHLORIDE 0.9% INJ 10 ML SYR IV ONE (22:00)
[2022-11-28] VITALS (9 sets, daily range): BP systolic 103–127; BP diastolic 53–70; O2SAT 94–97
[2022-11-28 06:57] LABS: BASO % 0.1 % (0.0-1.0); HEMATOCRIT 39.5 % (36.0-47.0); HEMOGLOBIN 12.4 g/dl (12.0-15.5); LYMPH # 0.4 10^3/uL (1.5-5.0); LYMPH % 3.8 % (24.0-44.0); MEAN CORPUSCULAR HGB CONC 31.4 g/dl (32.0-36.5); MEAN CORPUSCULAR VOLUME 86.1 fl (80.0-96.0); MONO # 0.4 10^3/uL (0.0-0.8); MONO % 3.8 % (2.0-8.0); NEUTROPHILS # 8.8 10^3/uL (1.5-8.5); NEUTROPHILS % 91.9 % (36.0-66.0); PLATELET COUNT, AUTOMATED 336 10^3/uL (150-450); RED BLOOD COUNT 4.59 10^6/uL (4.00-5.40); WHITE BLOOD COUNT 9.5 10^3/uL (4.0-10.0)
[2022-11-28 07:28] LABS: ALBUMIN 3.3 G/DL (3.2-5.2); ALKALINE PHOSPHATASE 73 U/L (46-116); ALT/SGPT 28 U/L (7.0-40); AST/SGOT 21 U/L (<34); BILIRUBIN,DIRECT 0.1 MG/DL (<0.4); BILIRUBIN,TOTAL 0.3 MG/DL (0.3-1.2); BLOOD UREA NITROGEN 15 MG/DL (9-23); CALCIUM LEVEL 9.4 MG/DL (8.3-10.6); CARBON DIOXIDE LEVEL 34 MMOL/L (20-31); CHLORIDE LEVEL 100 MMOL/L (98-107); GLOMERULAR FILTRATION RATE > 60.0 (>39); GLUCOSE, FASTING 111 MG/DL (74-106); SODIUM LEVEL 140 MMOL/L (136-145); TOTAL PROTEIN 6.3 G/DL (5.7-8.2)
[2022-11-28] MEDS: ENOXAPARIN 40MG/0.4ML SYRINGE (J1650 PER 10MG) SC SCH (08:45)
[2022-11-28] MEDS: MIRALAX *UNIT DOSE* 17GM PACKET PO SCH ×2 (08:45→21:56)
[2022-11-28] MEDS: ASPIRIN 81MG ENTERIC TABLET PO SCH (08:45)
[2022-11-28] MEDS ORDERED: ALPRAZolam 0.25 MG TAB PO PRN (12:15)
[2022-11-28] MEDS ORDERED: guaiFENesin ER 600 MG TAB PO PRN (12:15)
[2022-11-28] MEDS ORDERED: ONDANSETRON 4MG TAB PO PRN (12:15)
[2022-11-28] MEDS: LEVOTHYROXINE 88MCG TABLET (0.088 MG) PO SCH (12:56)
[2022-11-28] MEDS: FLUoxetine 20MG CAP PO SCH (13:15)
[2022-11-28 14:07] LABS: CK-MB VALUE MASS < 1.0 NG/ML (<3.6)
[2022-11-28 14:19] LABS: CPK CREATINE PHOSPHOKINASE 66 U/L (34-145); MB/CK RELATIVE INDEX 1.51 (< OR =4)
[2022-11-28] MEDS: DRONABINOL 2.5MG CAP (MARINOL) PO SCH ×2 (16:03→21:55)
[2022-11-28] MEDS ORDERED: REMDESIVIR 100 MG in NS 250 ML IV SCH (21:00)
[2022-11-28 21:46] LABS: CK-MB VALUE MASS < 1.0 NG/ML (<3.6)
[2022-11-28 21:57] LABS: CPK CREATINE PHOSPHOKINASE 58 U/L (34-145); MB/CK RELATIVE INDEX 1.72 (< OR =4)
[2022-11-28] MEDS ORDERED: SODIUM CHLORIDE 0.9% INJ 10 ML SYR IV SCH (22:00)
[2022-11-29] VITALS: O2SAT 97
[2022-11-29 04:00] VITALS: O2SAT 98
[2022-11-29 04:34] VITALS: BP 127/60
[2022-11-29] MEDS: LEVOTHYROXINE 88MCG TABLET (0.088 MG) PO SCH (05:37)
[2022-11-29 06:22] LABS: BASO % 0.1 % (0.0-1.0); EOS % 0.2 % (0.0-3.0); HEMATOCRIT 39.1 % (36.0-47.0); HEMOGLOBIN 12.2 g/dl (12.0-15.5); LYMPH # 0.7 10^3/uL (1.5-5.0); LYMPH % 6.9 % (24.0-44.0); MEAN CORPUSCULAR HGB CONC 31.2 g/dl (32.0-36.5); MEAN CORPUSCULAR VOLUME 86.5 fl (80.0-96.0); MONO # 0.9 10^3/uL (0.0-0.8); MONO % 8.8 % (2.0-8.0); NEUTROPHILS # 8.4 10^3/uL (1.5-8.5); NEUTROPHILS % 83.6 % (36.0-66.0); PLATELET COUNT, AUTOMATED 301 10^3/uL (150-450); RED BLOOD COUNT 4.52 10^6/uL (4.00-5.40); WHITE BLOOD COUNT 10.1 10^3/uL (4.0-10.0)
[2022-11-29 06:42] LABS: INR 0.91; PROTHROMBIN TIME 12.4 SECONDS (12.5-14.5)
[2022-11-29 06:52] LABS: LDH LACTATE DEHYDROGENASE 293 U/L (120-246)
[2022-11-29 06:56] LABS: ALBUMIN 3.2 G/DL (3.2-5.2); ALKALINE PHOSPHATASE 68 U/L (46-116); ALT/SGPT 26 U/L (7.0-40); AST/SGOT 31 U/L (<34); BILIRUBIN,DIRECT < 0.1 MG/DL (<0.4); BILIRUBIN,TOTAL 0.3 MG/DL (0.3-1.2); BLOOD UREA NITROGEN 20 MG/DL (9-23); CALCIUM LEVEL 9.3 MG/DL (8.3-10.6); CARBON DIOXIDE LEVEL 38 MMOL/L (20-31); CHLORIDE LEVEL 98 MMOL/L (98-107); CREATININE FOR GFR 0.61 MG/DL (0.55-1.30); FERRITIN 66.8 NG/ML (7.3-270.7); GLOMERULAR FILTRATION RATE > 60.0 (>39); GLUCOSE, FASTING 77 MG/DL (74-106); POTASSIUM SERUM 4.4 MMOL/L (3.5-5.1); SODIUM LEVEL 142 MMOL/L (136-145); TOTAL PROTEIN 6.1 G/DL (5.7-8.2)
[2022-11-29 06:59] LABS: CPK CREATINE PHOSPHOKINASE 83 U/L (34-145)
[2022-11-29 08:00] VITALS: O2SAT 96
[2022-11-29] MEDS: ASPIRIN 81MG ENTERIC TABLET PO SCH (10:07)
[2022-11-29] MEDS: DRONABINOL 2.5MG CAP (MARINOL) PO SCH ×2 (10:08→16:19)
[2022-11-29] MEDS: FLUoxetine 20MG CAP PO SCH (10:08)
[2022-11-29] MEDS: ENOXAPARIN 40MG/0.4ML SYRINGE (J1650 PER 10MG) SC SCH (10:09)
[2022-11-29] MEDS: MIRALAX *UNIT DOSE* 17GM PACKET PO SCH (10:09)
[2022-11-29] MEDS ORDERED: PRED10TA2 PO (11:13)
[2022-11-29 12:00] VITALS: O2SAT 97
[2022-11-29 16:00] VITALS: O2SAT 95
[2022-11-30 15:08] LABS: BODY FLUID CULTURE Not indicated. (.); LEGIONELLA ANTIGEN URINE Negative (Negative); ORGANISM ID Not indicated. (.); SPECIMEN SOURCE Urine (.); URINE STREP PNEUMONIAE ANTIGEN Negative (Negative)
== END 2022-11-29 17:20 | disposition home or self-care (01) | DRG 177 ==
LOC: EDBD 11:31 → M ED 11:31 → M ED INP 16:09 → M MS5PR 20:48
PROVIDERS: ADMIT General Practice; ATTEND Internal Medicine
DX: U07.1 COVID-19 (principal); E43 Unspecified severe protein-calorie malnutrition; J96.11 Chronic respiratory failure with hypoxia; R64 Cachexia; Z68.1 Body mass index [BMI] 19.9 or less, adult; J90 Pleural effusion, not elsewhere classified; Z99.81 Dependence on supplemental oxygen; E03.9 Hypothyroidism, unspecified; F41.9 Anxiety disorder, unspecified; Z92.21 Personal history of antineoplastic chemotherapy; Z92.3 Personal history of irradiation; Z85.118 Personal history of other malignant neoplasm of bronchus and lung; Z87.891 Personal history of nicotine dependence; Z79.899 Other long term (current) drug therapy; Z88.2 Allergy status to sulfonamides; E27.8 Other specified disorders of adrenal gland; Z66 Do not resuscitate

== ENCOUNTER 2023-04-24 19:01 | Inpatient (IN) | payer MEDICARE, OTHER ==
[~2023-04-24] VITALS: Ht 162.6 cm; Wt 40.0 kg
[~2023-04-24 19:01] MED LIST changes: +DRON2.5C11 PO; +OMEP40CA5 PO; +PRED10TA2 PO
[2023-04-24 19:53] LABS: BASO % 0.5 % (0.0-1.0); EOS # 0.1 10^3/uL (0.0-0.5); EOS % 0.9 % (0.0-3.0); HEMATOCRIT 37.2 % (36.0-47.0); HEMOGLOBIN 11.8 g/dl (12.0-15.5); LYMPH # 0.6 10^3/uL (1.5-5.0); LYMPH % 7.1 % (24.0-44.0); MEAN CORPUSCULAR HEMOGLOBIN 26.9 pg (27.0-33.0); MEAN CORPUSCULAR HGB CONC 31.7 g/dl (32.0-36.5); MEAN CORPUSCULAR VOLUME 84.7 fl (80.0-96.0); MONO # 0.5 10^3/uL (0.0-0.8); MONO % 6.3 % (2.0-8.0); NEUTROPHILS # 6.8 10^3/uL (1.5-8.5); NEUTROPHILS % 84.7 % (36.0-66.0); PLATELET COUNT, AUTOMATED 308 10^3/uL (150-450); RED BLOOD COUNT 4.39 10^6/uL (4.00-5.40)
[2023-04-24 20:19] LABS: CK-MB VALUE MASS < 1.0 NG/ML (<3.6)
[2023-04-24 20:22] LABS: THYROID STIMULATING HORMONE 6.764 uIU/ML (0.55-4.78)
[2023-04-24 20:26] LABS: ALBUMIN 3.4 G/DL (3.2-5.2); ALKALINE PHOSPHATASE 84 U/L (46-116); ALT/SGPT < 9 U/L (7.0-40); AST/SGOT 20 U/L (<34); BILIRUBIN,DIRECT < 0.1 MG/DL (<0.4); BILIRUBIN,TOTAL 0.2 MG/DL (0.3-1.2); BLOOD UREA NITROGEN 14 MG/DL (9-23); CALCIUM LEVEL 9.4 MG/DL (8.3-10.6); CARBON DIOXIDE LEVEL 35 MMOL/L (20-31); CHLORIDE LEVEL 98 MMOL/L (98-107); CPK CREATINE PHOSPHOKINASE 73 U/L (34-145); CREATININE FOR GFR 0.58 MG/DL (0.55-1.30); GLOMERULAR FILTRATION RATE > 60.0 (>39); GLUCOSE, FASTING 119 MG/DL (74-106); MB/CK RELATIVE INDEX 1.36 (< OR =4); POTASSIUM SERUM 4.2 MMOL/L (3.5-5.1); SODIUM LEVEL 139 MMOL/L (136-145); TOTAL PROTEIN 6.8 G/DL (5.7-8.2)
[2023-04-24] MEDS ORDERED: ISOVUE-370 76% 100ML VIAL As Ordered ONE (21:04)
[2023-04-24 21:20] LABS: ABG BASE EXCESS 8.4 (-2.0-2.0); ABG HCO3 34.5 MMOL/L (22.0-26.0); ABG O2 SATURATION 99.1 % (95.0-99.0); ABG PARTIAL PRESSURE CO2 54.7 mmHg (35.0-45.0); ABG PARTIAL PRESSURE O2 184.9 mmHg (75.0-100.0); ABG STANDARD HCO3 32.3 MMOL/L. (22.0-26.0); ABG TOTAL CO2 36.2 MMOL/L (23.0-31.0); ABG pH (ARTERIAL) 7.418 UNITS (7.350-7.450)
[2023-04-24] MEDS ORDERED: ALBUTEROL SULFATE 2.5MG/0.5ML INH NEB SOLN NEB ONE ×2 (22:05)
[2023-04-25] MEDS ORDERED: GUAI5EL PO (00:03)
[2023-04-25] MEDS ORDERED: IPRA0.00 INH (00:03)
[2023-04-25] MEDS ORDERED: HOME MED LIST COMPLETE! XX SCH (00:05)
[2023-04-25] MEDS ORDERED: BENZONATATE 100MG CAPSULE PO ONE (00:30)
[2023-04-25 01:57] LABS: PROCALCITONIN 0.19 ng/ml
[2023-04-25] MEDS ORDERED: guaiFENesin SYRUP 200MG 10ML UDC PO PRN (05:10)
[2023-04-25] MEDS ORDERED: IPRATROPIUM 0.5MG/ALBUTEROL 2.5MG INH SOL UD 3ML (DUONEB) INH PRN (05:10)
[2023-04-25] MEDS ORDERED: ONDANSETRON 4MG TAB PO PRN (05:10)
[2023-04-25] MEDS: LEVOTHYROXINE 88MCG TABLET (0.088 MG) PO SCH (06:15)
[2023-04-25] MEDS: cefTRIAXone SOD 1 GM in D5W MINI-BAG PLUS 50 ML IV SCH (06:21)
[2023-04-25 06:57] LABS: BASO % 0.7 % (0.0-1.0); EOS # 0.1 10^3/uL (0.0-0.5); EOS % 1.6 % (0.0-3.0); HEMATOCRIT 35.4 % (36.0-47.0); HEMOGLOBIN 11.1 g/dl (12.0-15.5); LYMPH # 0.6 10^3/uL (1.5-5.0); LYMPH % 9.7 % (24.0-44.0); MEAN CORPUSCULAR HEMOGLOBIN 26.6 pg (27.0-33.0); MEAN CORPUSCULAR HGB CONC 31.4 g/dl (32.0-36.5); MEAN CORPUSCULAR VOLUME 84.9 fl (80.0-96.0); MONO # 0.5 10^3/uL (0.0-0.8); MONO % 7.9 % (2.0-8.0); NEUTROPHILS # 4.9 10^3/uL (1.5-8.5); NEUTROPHILS % 79.8 % (36.0-66.0); PLATELET COUNT, AUTOMATED 267 10^3/uL (150-450); RED BLOOD COUNT 4.17 10^6/uL (4.00-5.40); WHITE BLOOD COUNT 6.1 10^3/uL (4.0-10.0)
[2023-04-25] MEDS ORDERED: ALBUTEROL SULFATE 2.5MG/0.5ML INH NEB SOLN NEB PRN (07:00)
[2023-04-25 07:35] LABS: BLOOD UREA NITROGEN 12 MG/DL (9-23); CALCIUM LEVEL 9.1 MG/DL (8.3-10.6); CARBON DIOXIDE LEVEL > 40.0 MMOL/L (20-31); CHLORIDE LEVEL 99 MMOL/L (98-107); CREATININE FOR GFR 0.62 MG/DL (0.55-1.30); FREE T4 1.07 NG/DL (0.89-1.76); GLOMERULAR FILTRATION RATE > 60.0 (>39); GLUCOSE, FASTING 90 MG/DL (74-106); POTASSIUM SERUM 3.3 MMOL/L (3.5-5.1); SODIUM LEVEL 142 MMOL/L (136-145)
[2023-04-25] MEDS: CALCIUM/VITAMIN D 500 MG TAB PO SCH ×2 (08:44→20:42)
[2023-04-25] MEDS: IPRATROPIUM 0.5MG/ALBUTEROL 2.5MG INH SOL UD 3ML (DUONEB) INH SCH ×3 (08:59→20:00)
[2023-04-25] MEDS: DOXYCYCLINE HYCLATE 100MG TABLET PO SCH ×2 (09:00→20:42)
[2023-04-25 11:47] LABS: LDH LACTATE DEHYDROGENASE 147 U/L (120-246)
[2023-04-25 11:49] LABS: TOTAL PROTEIN 6.4 G/DL (5.7-8.2)
[2023-04-25 13:15] VITALS: BP 85/53; TEMP 97.9; O2SAT 96
[2023-04-25] MEDS ORDERED: POTASSIUM CHLORIDE 10MEQ SR TABLET PO ONE (15:20)
[2023-04-25 15:28] VITALS: BP 85/53; TEMP 97.9; O2SAT 96
[2023-04-25 15:48] VITALS: BP 115/57
[2023-04-25] MEDS: ALPRAZolam 0.25 MG TAB PO PRN (18:51)
[2023-04-25 19:34] VITALS: BP 102/58; TEMP 98.4; O2SAT 99
[2023-04-25] MEDS: ENOXAPARIN 30MG/0.3ML SYRINGE (J1650 PER 10MG) SC SCH (20:42)
[2023-04-25] MEDS: OMEPRAZOLE 20MG CAP PO SCH (20:42)
[2023-04-25] MEDS: FLUoxetine 20MG CAP PO SCH (20:42)
[2023-04-25] MEDS ORDERED: MYRBETRIQ 50MG TABLET (PATIENT'S OWN MED) PO SCH (21:00)
[2023-04-26] MEDS: IPRATROPIUM 0.5MG/ALBUTEROL 2.5MG INH SOL UD 3ML (DUONEB) INH SCH ×4 (01:42→19:04)
[2023-04-26] MEDS: LEVOTHYROXINE 88MCG TABLET (0.088 MG) PO SCH (05:24)
[2023-04-26] MEDS: cefTRIAXone SOD 1 GM in D5W MINI-BAG PLUS 50 ML IV SCH (05:24)
[2023-04-26 06:00] VITALS: BP 110/60; TEMP 98.1; O2SAT 100
[2023-04-26 06:18] LABS: BASO % 0.8 % (0.0-1.0); EOS # 0.1 10^3/uL (0.0-0.5); EOS % 2.8 % (0.0-3.0); HEMATOCRIT 34.1 % (36.0-47.0); HEMOGLOBIN 10.9 g/dl (12.0-15.5); LYMPH # 0.6 10^3/uL (1.5-5.0); LYMPH % 11.5 % (24.0-44.0); MEAN CORPUSCULAR HEMOGLOBIN 27.2 pg (27.0-33.0); MONO # 0.5 10^3/uL (0.0-0.8); MONO % 9.3 % (2.0-8.0); NEUTROPHILS # 3.7 10^3/uL (1.5-8.5); NEUTROPHILS % 75.2 % (36.0-66.0); PLATELET COUNT, AUTOMATED 245 10^3/uL (150-450); RED BLOOD COUNT 4.01 10^6/uL (4.00-5.40)
[2023-04-26 06:32] LABS: BLOOD UREA NITROGEN 10 MG/DL (9-23); CARBON DIOXIDE LEVEL 35 MMOL/L (20-31); CHLORIDE LEVEL 103 MMOL/L (98-107); CREATININE FOR GFR 0.55 MG/DL (0.55-1.30); GLOMERULAR FILTRATION RATE > 60.0 (>39); GLUCOSE, FASTING 88 MG/DL (74-106); POTASSIUM SERUM 3.7 MMOL/L (3.5-5.1); SODIUM LEVEL 143 MMOL/L (136-145)
[2023-04-26 07:58] LABS: ABG BASE EXCESS 4.9 (-2.0-2.0); ABG HCO3 30.5 MMOL/L (22.0-26.0); ABG O2 SATURATION 97.2 % (95.0-99.0); ABG PARTIAL PRESSURE CO2 49.6 mmHg (35.0-45.0); ABG PARTIAL PRESSURE O2 101.3 mmHg (75.0-100.0); ABG STANDARD HCO3 28.9 MMOL/L. (22.0-26.0); ABG pH (ARTERIAL) 7.407 UNITS (7.350-7.450)
[2023-04-26] MEDS: DOXYCYCLINE HYCLATE 100MG TABLET PO SCH ×2 (09:25→20:37)
[2023-04-26] MEDS: CALCIUM/VITAMIN D 500 MG TAB PO SCH ×2 (09:25→20:36)
[2023-04-26 11:00] VITALS: O2SAT 96
[2023-04-26 14:00] VITALS: BP 117/78; TEMP 98.1; O2SAT 97
[2023-04-26] MEDS: OMEPRAZOLE 20MG CAP PO SCH (20:36)
[2023-04-26] MEDS: FLUoxetine 20MG CAP PO SCH (20:37)
[2023-04-26] MEDS: ENOXAPARIN 30MG/0.3ML SYRINGE (J1650 PER 10MG) SC SCH (20:37)
[2023-04-26 22:00] VITALS: BP 116/55; TEMP 97.7; O2SAT 97
[2023-04-27] VITALS (11 sets, daily range): BP systolic 110–115; BP diastolic 53–56; TEMP 97.7–101.7; O2SAT 89–98
[2023-04-27] MEDS: IPRATROPIUM 0.5MG/ALBUTEROL 2.5MG INH SOL UD 3ML (DUONEB) INH SCH ×4 (01:38→20:00)
[2023-04-27] MEDS: cefTRIAXone SOD 1 GM in D5W MINI-BAG PLUS 50 ML IV SCH ×2 (05:33→06:00)
[2023-04-27] MEDS: LEVOTHYROXINE 88MCG TABLET (0.088 MG) PO SCH (05:33)
[2023-04-27] MEDS ORDERED: LevoFLOXacin 750 MG TABLET PO SCH (06:00)
[2023-04-27 06:08] LABS: BASO # 0.1 10^3/uL (0.0-0.2); BASO % 1.1 % (0.0-1.0); EOS # 0.2 10^3/uL (0.0-0.5); EOS % 3.4 % (0.0-3.0); HEMATOCRIT 33.9 % (36.0-47.0); HEMOGLOBIN 10.7 g/dl (12.0-15.5); LYMPH # 0.5 10^3/uL (1.5-5.0); LYMPH % 11.2 % (24.0-44.0); MEAN CORPUSCULAR HGB CONC 31.6 g/dl (32.0-36.5); MEAN CORPUSCULAR VOLUME 85.4 fl (80.0-96.0); MONO # 0.4 10^3/uL (0.0-0.8); MONO % 8.8 % (2.0-8.0); NEUTROPHILS # 3.6 10^3/uL (1.5-8.5); NEUTROPHILS % 75.3 % (36.0-66.0); PLATELET COUNT, AUTOMATED 224 10^3/uL (150-450); RED BLOOD COUNT 3.97 10^6/uL (4.00-5.40); WHITE BLOOD COUNT 4.8 10^3/uL (4.0-10.0)
[2023-04-27 06:43] LABS: BLOOD UREA NITROGEN 8 MG/DL (9-23); CARBON DIOXIDE LEVEL 36 MMOL/L (20-31); CHLORIDE LEVEL 101 MMOL/L (98-107); CREATININE FOR GFR 0.57 MG/DL (0.55-1.30); GLOMERULAR FILTRATION RATE > 60.0 (>39); GLUCOSE, FASTING 79 MG/DL (74-106); POTASSIUM SERUM 3.7 MMOL/L (3.5-5.1); SODIUM LEVEL 142 MMOL/L (136-145)
[2023-04-27] MEDS: TIOTROPIUM INHALER/CAPSULE (SPIRIVA) INH SCH (06:46)
[2023-04-27] MEDS: CALCIUM/VITAMIN D 500 MG TAB PO SCH ×2 (09:36→20:27)
[2023-04-27] MEDS: ALPRAZolam 0.25 MG TAB PO PRN ×2 (09:37→19:22)
[2023-04-27] MEDS: DOXYCYCLINE HYCLATE 100MG TABLET PO SCH (09:39)
[2023-04-27 19:48] LABS: BASO % 0.3 % (0.0-1.0); EOS % 0.3 % (0.0-3.0); HEMATOCRIT 34.5 % (36.0-47.0); LYMPH # 0.3 10^3/uL (1.5-5.0); LYMPH % 2.6 % (24.0-44.0); MEAN CORPUSCULAR HEMOGLOBIN 26.9 pg (27.0-33.0); MEAN CORPUSCULAR HGB CONC 31.9 g/dl (32.0-36.5); MEAN CORPUSCULAR VOLUME 84.4 fl (80.0-96.0); MONO # 0.5 10^3/uL (0.0-0.8); MONO % 3.9 % (2.0-8.0); NEUTROPHILS # 12.2 10^3/uL (1.5-8.5); NEUTROPHILS % 92.5 % (36.0-66.0); PLATELET COUNT, AUTOMATED 272 10^3/uL (150-450); RED BLOOD COUNT 4.09 10^6/uL (4.00-5.40); WHITE BLOOD COUNT 13.2 10^3/uL (4.0-10.0)
[2023-04-27] MEDS ORDERED: NS 1,000 ML IV SCH (19:50)
[2023-04-27] MEDS ORDERED: methylPREDNISolone 125MG 2ML VIAL IV ONE (20:00)
[2023-04-27] MEDS ORDERED: ACETAMINOPHEN *IV* 500 MG in IV 1 EA IV ONE (20:00)
[2023-04-27] MEDS: ENOXAPARIN 30MG/0.3ML SYRINGE (J1650 PER 10MG) SC SCH (20:22)
[2023-04-27] MEDS: OMEPRAZOLE 20MG CAP PO SCH (20:23)
[2023-04-27] MEDS: FLUoxetine 20MG CAP PO SCH (20:23)
[2023-04-27 21:43] LABS: BLOOD UREA NITROGEN 9 MG/DL (9-23); CALCIUM LEVEL 9.1 MG/DL (8.3-10.6); CARBON DIOXIDE LEVEL 33 MMOL/L (20-31); CHLORIDE LEVEL 98 MMOL/L (98-107); CREATININE FOR GFR 0.57 MG/DL (0.55-1.30); GLOMERULAR FILTRATION RATE > 60.0 (>39); GLUCOSE, FASTING 90 MG/DL (74-106); MAGNESIUM LEVEL 1.6 MG/DL (1.8-2.4); POTASSIUM SERUM 3.9 MMOL/L (3.5-5.1); SODIUM LEVEL 138 MMOL/L (136-145)
[2023-04-27] MEDS: PIPERACILLIN/TAZOBACTAM SOD 3.375 GM in D5W MINI-BAG PLUS 50 ML IV SCH (21:43)
[2023-04-27] MEDS ORDERED: MAG SULF 1GM/100ML (MAG RUN) 1 GM in IV 1 EA IV ONE (21:45)
[2023-04-28] MEDS: IPRATROPIUM 0.5MG/ALBUTEROL 2.5MG INH SOL UD 3ML (DUONEB) INH SCH ×4 (01:34→20:33)
[2023-04-28] MEDS: methylPREDNISolone 40MG 1ML VIAL IV SCH ×3 (04:04→21:48)
[2023-04-28] MEDS: PIPERACILLIN/TAZOBACTAM SOD 3.375 GM in D5W MINI-BAG PLUS 50 ML IV SCH ×4 (04:04→21:47)
[2023-04-28 05:25] VITALS: BP 107/53; TEMP 97.5; O2SAT 97
[2023-04-28] MEDS: LEVOTHYROXINE 88MCG TABLET (0.088 MG) PO SCH (05:48)
[2023-04-28] MEDS: TIOTROPIUM INHALER/CAPSULE (SPIRIVA) INH SCH (07:44)
[2023-04-28] MEDS: MAG SULF 1GM/100ML (MAG RUN) 1 GM in IV 1 EA IV SCH ×2 (07:58→09:09)
[2023-04-28] MEDS: CALCIUM/VITAMIN D 500 MG TAB PO SCH ×2 (08:00→21:48)
[2023-04-28 14:28] VITALS: BP 82/54; TEMP 97.7; O2SAT 96
[2023-04-28 15:15] VITALS: BP 110/68
[2023-04-28 20:45] VITALS: BP 115/60; TEMP 97.9; O2SAT 98
[2023-04-28] MEDS: ENOXAPARIN 30MG/0.3ML SYRINGE (J1650 PER 10MG) SC SCH (21:48)
[2023-04-28] MEDS: FLUoxetine 20MG CAP PO SCH (21:48)
[2023-04-28] MEDS: OMEPRAZOLE 20MG CAP PO SCH (21:48)
[2023-04-28] MEDS: ALPRAZolam 0.25 MG TAB PO PRN (21:49)
[2023-04-29] MEDS: IPRATROPIUM 0.5MG/ALBUTEROL 2.5MG INH SOL UD 3ML (DUONEB) INH SCH ×3 (01:58→13:29)
[2023-04-29] MEDS: PIPERACILLIN/TAZOBACTAM SOD 3.375 GM in D5W MINI-BAG PLUS 50 ML IV SCH ×3 (05:13→14:52)
[2023-04-29] MEDS: LEVOTHYROXINE 88MCG TABLET (0.088 MG) PO SCH (05:13)
[2023-04-29 05:34] VITALS: BP 118/60; TEMP 97.5; O2SAT 98
[2023-04-29 06:28] LABS: BASO % 0.1 % (0.0-1.0); HEMATOCRIT 30.6 % (36.0-47.0); HEMOGLOBIN 9.7 g/dl (12.0-15.5); LYMPH # 0.3 10^3/uL (1.5-5.0); LYMPH % 1.7 % (24.0-44.0); MEAN CORPUSCULAR HEMOGLOBIN 26.9 pg (27.0-33.0); MEAN CORPUSCULAR HGB CONC 31.7 g/dl (32.0-36.5); MONO # 0.4 10^3/uL (0.0-0.8); MONO % 2.9 % (2.0-8.0); NEUTROPHILS # 13.8 10^3/uL (1.5-8.5); NEUTROPHILS % 94.6 % (36.0-66.0); PLATELET COUNT, AUTOMATED 261 10^3/uL (150-450); WHITE BLOOD COUNT 14.6 10^3/uL (4.0-10.0)
[2023-04-29 06:47] LABS: BLOOD UREA NITROGEN 16 MG/DL (9-23); CALCIUM LEVEL 8.5 MG/DL (8.3-10.6); CARBON DIOXIDE LEVEL 33 MMOL/L (20-31); CHLORIDE LEVEL 102 MMOL/L (98-107); CREATININE FOR GFR 0.59 MG/DL (0.55-1.30); GLOMERULAR FILTRATION RATE > 60.0 (>39); GLUCOSE, FASTING 145 MG/DL (74-106); POTASSIUM SERUM 3.7 MMOL/L (3.5-5.1); SODIUM LEVEL 141 MMOL/L (136-145)
[2023-04-29] MEDS: TIOTROPIUM INHALER/CAPSULE (SPIRIVA) INH SCH (07:31)
[2023-04-29] MEDS: methylPREDNISolone 40MG 1ML VIAL IV SCH (08:25)
[2023-04-29] MEDS: CALCIUM/VITAMIN D 500 MG TAB PO SCH (08:26)
[2023-04-29] MEDS ORDERED: LEVO1TAB40 PO (10:46)
[2023-04-29] MEDS ORDERED: ANOR1AER PO (10:46)
[2023-04-29] MEDS ORDERED: PRED20TA PO (10:46)
[2023-05-01 12:08] LABS: BODY FLUID CULTURE Not indicated. (.); LEGIONELLA ANTIGEN URINE Negative (Negative); ORGANISM ID Not indicated. (.); SPECIMEN SOURCE Urine (.); URINE STREP PNEUMONIAE ANTIGEN Negative (Negative)
== END 2023-04-29 15:10 | disposition home health service (06) | DRG 196 ==
LOC: M ED 19:01 → M ED INP 23:56 → M MSPAV 04-25 15:16
PROVIDERS: ADMIT Family Medicine; ATTEND Internal Medicine
DX: J70.1 Chronic and other pulmonary manifestations due to radiation (principal); J96.22 Acute and chronic respiratory failure with hypercapnia; J96.21 Acute and chronic respiratory failure with hypoxia; J90 Pleural effusion, not elsewhere classified; E46 Unspecified protein-calorie malnutrition; Z68.1 Body mass index [BMI] 19.9 or less, adult; E87.20 Acidosis, unspecified; J44.0 Chronic obstructive pulmonary disease with (acute) lower respiratory infection; R64 Cachexia; J98.11 Atelectasis; D84.9 Immunodeficiency, unspecified; J44.1 Chronic obstructive pulmonary disease with (acute) exacerbation; E03.9 Hypothyroidism, unspecified; I25.10 Atherosclerotic heart disease of native coronary artery without angina pectoris; N39.41 Urge incontinence; D63.8 Anemia in other chronic diseases classified elsewhere; E78.5 Hyperlipidemia, unspecified; I10 Essential (primary) hypertension; K21.9 Gastro-esophageal reflux disease without esophagitis; E55.9 Vitamin D deficiency, unspecified; F41.9 Anxiety disorder, unspecified; Z87.891 Personal history of nicotine dependence; Z99.81 Dependence on supplemental oxygen; Z85.118 Personal history of other malignant neoplasm of bronchus and lung; Z92.21 Personal history of antineoplastic chemotherapy; Z66 Do not resuscitate; Z79.890 Hormone replacement therapy; Z79.899 Other long term (current) drug therapy; Z88.2 Allergy status to sulfonamides; Z20.822 Contact with and (suspected) exposure to COVID-19

== ENCOUNTER 2023-06-13 21:42 | Emergency (ER) | payer MEDICARE, OTHER ==
[~2023-06-13] VITALS: Ht 162.6 cm; Wt 92.0 kg
[~2023-06-13 21:42] MED LIST changes: +AMOX500C PO; +ANOR1AER PO; +GUAI5EL PO; +IPRA0.00 INH; +LEVO1TAB40 PO; +PRED20TA PO
[2023-06-14 00:51] VITALS: TEMP 98.7
[2023-06-14] MEDS ORDERED: NS 500 ML IV ONE (03:40)
[2023-06-14] MEDS ORDERED: KETOROLAC 30 MG/ML 1ML VIAL IV ONE (03:40)
[2023-06-14] MEDS ORDERED: ONDANSETRON 4MG 2ML VIAL IV ONE (04:00)
[2023-06-14 04:07] LABS: BASO # 0.1 10^3/uL (0.0-0.2); BASO % 0.5 % (0.0-1.0); EOS # 0.1 10^3/uL (0.0-0.5); EOS % 0.7 % (0.0-3.0); HEMATOCRIT 32.8 % (36.0-47.0); HEMOGLOBIN 10.4 g/dl (12.0-15.5); LYMPH # 0.5 10^3/uL (1.5-5.0); LYMPH % 4.8 % (24.0-44.0); MEAN CORPUSCULAR HEMOGLOBIN 27.5 pg (27.0-33.0); MEAN CORPUSCULAR HGB CONC 31.7 g/dl (32.0-36.5); MEAN CORPUSCULAR VOLUME 86.8 fl (80.0-96.0); MONO # 0.5 10^3/uL (0.0-0.8); MONO % 4.9 % (2.0-8.0); NEUTROPHILS # 8.3 10^3/uL (1.5-8.5); NEUTROPHILS % 88.9 % (36.0-66.0); PLATELET COUNT, AUTOMATED 291 10^3/uL (150-450); RED BLOOD COUNT 3.78 10^6/uL (4.00-5.40); WHITE BLOOD COUNT 9.4 10^3/uL (4.0-10.0)
[2023-06-14 04:32] LABS: LIPASE 45 U/L (12-53)
[2023-06-14 04:43] LABS: ALBUMIN 3.2 G/DL (3.2-5.2); ALKALINE PHOSPHATASE 79 U/L (46-116); ALT/SGPT 9 U/L (7.0-40); AST/SGOT 20 U/L (<34); BILIRUBIN,DIRECT < 0.1 MG/DL (<0.4); BILIRUBIN,TOTAL 0.3 MG/DL (0.3-1.2); BLOOD UREA NITROGEN 14 MG/DL (9-23); CALCIUM LEVEL 9.4 MG/DL (8.3-10.6); CARBON DIOXIDE LEVEL > 40.0 MMOL/L (20-31); CHLORIDE LEVEL 100 MMOL/L (98-107); CREATININE FOR GFR 0.51 MG/DL (0.55-1.30); GLOMERULAR FILTRATION RATE > 60.0 (>39); GLUCOSE, FASTING 97 MG/DL (74-106); POTASSIUM SERUM 3.7 MMOL/L (3.5-5.1); SODIUM LEVEL 142 MMOL/L (136-145); TOTAL PROTEIN 6.4 G/DL (5.7-8.2)
[2023-06-14 05:23] LABS: VENOUS BASE EXCESS 10.8 (-2.0-2.0); VENOUS HCO3 37.7 MMOL/L (23.0-27.0); VENOUS O2 SATURATION 96.7 % (60.0-80.0); VENOUS PARTIAL PRESSURE CO2 63.9 mmHg (38.0-50.0); VENOUS PARTIAL PRESSURE O2 92.9 mmHg (30.0-50.0); VENOUS PH 7.389 UNITS (7.330-7.430); VENOUS STANDARD HCO3 34.5 MMOL/L; VENOUS TOTAL CO2 39.7 MMOL/L (24.0-28.0)
[2023-06-14] MEDS ORDERED: CEPH500C PO (05:44)
[2023-06-14] MEDS ORDERED: cefTRIAXone SOD 2 GM in D5W MINI-BAG PLUS 50 ML IV ONE (05:45)
[2023-06-14 06:15] VITALS: BP 128/61; O2SAT 100
== END 2023-06-14 06:41 | disposition home or self-care (01) ==
LOC: M ED 21:42
DX: N39.0 Urinary tract infection, site not specified (principal); N20.0 Calculus of kidney; Z85.118 Personal history of other malignant neoplasm of bronchus and lung; Z87.19 Personal history of other diseases of the digestive system; Z87.442 Personal history of urinary calculi; Z79.899 Other long term (current) drug therapy; Z88.2 Allergy status to sulfonamides
CPT/HCPCS: 74176; 80048; 80076; 81001; 82803; 83605; 83690; 85025; 87040; 87086; 93041; 96361; 96374; 96375; 99285; J0696; J1885; J2405

== ENCOUNTER → 2023-06-25 | Outpatient (CLI) | payer MEDICARE, OTHER ==
[~2023-06-25] MED LIST changes: +AZIT500T5 PO
[2023-06-25 13:13] LABS: ABG BASE EXCESS 9.4 (-2.0-2.0); ABG HCO3 36.2 MMOL/L (22.0-26.0); ABG O2 SATURATION 97.5 % (95.0-99.0); ABG PARTIAL PRESSURE CO2 61.2 mmHg (35.0-45.0); ABG STANDARD HCO3 33.2 MMOL/L. (22.0-26.0); ABG TOTAL CO2 38.1 MMOL/L (23.0-31.0)
== END ==
LOC: M LAB 12:51
PROVIDERS: ATTEND Internal Medicine Pulmonary Disease
DX: Z85.118 Personal history of other malignant neoplasm of bronchus and lung (principal)

== ENCOUNTER → 2023-07-18 | Outpatient (REF) | payer MEDICARE, OTHER ==
[2023-07-19 10:40] LABS: APPEARANCE, URINE CLOUDY (CLEAR); COLOR, URINE YELLOW (YELLOW); SPECIFIC GRAVITY URINE AUTO 1.011 (1.002-1.035)
[2023-07-19 10:41] LABS: BILIRUBIN, URINE AUTO NEGATIVE (NEGATIVE); BLOOD, URINE BLOOD 1+ (NEGATIVE); GLUCOSE, URINE (UA) AUTO NEGATIVE (NEGATIVE); KETONE, URINE AUTO NEGATIVE (NEGATIVE); LEUKOCYTE ESTERASE, URINE AUTO 1+ (NEGATIVE); NITRITE, URINE AUTO NEGATIVE (NEGATIVE); PROTEIN, URINE AUTO 1+ mg/dL (NEGATIVE); UROBILINOGEN, URINE AUTO 0.2 mg/dL (0.0-2.0); WBC, URINE AUTO 12 /HPF (0-3)
[2023-07-19 10:42] LABS: AMORPHOUS SEDIMENT SMALL (NEGATIVE); BACTERIA, URINE AUTO 1+ (NEGATIVE); MUCUS, URINE SMALL (NEGATIVE); RBC, URINE AUTO 15 /HPF (0-3); SQUAMOUS EPITHELIAL CELL UR AU 1 /HPF (0-6)
== END ==
LOC: M SMT 17:25
PROVIDERS: ATTEND Physician Assistant
DX: Z01.818 Encounter for other preprocedural examination (principal)

== ENCOUNTER 2023-07-26 06:01 | Day surgery (SDC) | payer MEDICARE, OTHER ==
[~2023-07-26] VITALS: Ht 147.3 cm; Wt 40.8 kg
[~2023-07-26 06:01] MED LIST changes: +ceFAZolin SOD 2 GM in IV 1 EA IV ONE
[2023-07-26] MEDS ORDERED: LR 1,000 ML IV SCH (06:20)
[2023-07-26] MEDS ORDERED: fentaNYL 100 MCG/2 ML INJECTION As Ordered ONE (07:06)
[2023-07-26] MEDS ORDERED: ONDANSETRON 4MG 2ML VIAL As Ordered ONE (07:06)
[2023-07-26] MEDS ORDERED: MIDAZOLAM INJ 2MG/2ML VIAL As Ordered ONE (07:06)
[2023-07-26] MEDS ORDERED: propofoL 200 MG/20 ML VIAL As Ordered ONE (07:06)
[2023-07-26] MEDS ORDERED: LIDOCAINE 2% 100MG/5ML SDV (FOR ANES.) As Ordered ONE (07:09)
[2023-07-26] MEDS ORDERED: FLOM0.4C39 PO (07:37)
[2023-07-26] MEDS ORDERED: ACETAMINOPHEN 1000MG 100ML IV BAG As Ordered ONE (07:59)
[2023-07-26] MEDS ORDERED: PERCOCET 5MG/325MG TAB PO PRN (08:55)
[2023-07-26 11:30] VITALS: BP 131/60; TEMP 97.5; O2SAT 100
== END 2023-07-26 11:30 | disposition home or self-care (01) ==
LOC: M SDC 06:01
PROVIDERS: ATTEND Urology
DX: N20.0 Calculus of kidney (principal); I25.2 Old myocardial infarction; R07.9 Chest pain, unspecified; F41.9 Anxiety disorder, unspecified; F32.A Depression, unspecified; J44.9 Chronic obstructive pulmonary disease, unspecified; Z85.118 Personal history of other malignant neoplasm of bronchus and lung; Z92.21 Personal history of antineoplastic chemotherapy; Z92.3 Personal history of irradiation; Z79.899 Other long term (current) drug therapy; Z87.891 Personal history of nicotine dependence; Z88.2 Allergy status to sulfonamides
CPT/HCPCS: 50590; 52332; 74018; C1769; C2617; J0131; J2405; J3010

== ENCOUNTER → 2023-08-16 | Outpatient (CLI) | payer MEDICARE, OTHER ==
[~2023-08-16] MED LIST changes: -ceFAZolin SOD 2 GM in IV 1 EA IV ONE
== END ==
LOC: M ADAMS 13:14
PROVIDERS: ATTEND Urology
DX: N20.0 Calculus of kidney (principal)

== ENCOUNTER 2023-08-25 13:13 | Observation (INO) | payer MEDICARE, OTHER ==
[~2023-08-25] VITALS: Ht 162.6 cm; Wt 37.8 kg
[~2023-08-25 13:13] MED LIST changes: +ASPIRIN 81MG CHEW TABLET PO SCH
[2023-08-25 14:29] LABS: BASO % 0.4 % (0.0-1.0); EOS # 0.1 10^3/uL (0.0-0.5); EOS % 1.4 % (0.0-3.0); HEMATOCRIT 42.3 % (36.0-47.0); HEMOGLOBIN 13.3 g/dl (12.0-15.5); LYMPH # 0.6 10^3/uL (1.5-5.0); LYMPH % 7.6 % (24.0-44.0); MEAN CORPUSCULAR HEMOGLOBIN 27.3 pg (27.0-33.0); MEAN CORPUSCULAR HGB CONC 31.4 g/dl (32.0-36.5); MEAN CORPUSCULAR VOLUME 86.9 fl (80.0-96.0); MONO # 0.5 10^3/uL (0.0-0.8); MONO % 7.2 % (2.0-8.0); NEUTROPHILS % 83.1 % (36.0-66.0); PLATELET COUNT, AUTOMATED 351 10^3/uL (150-450); RED BLOOD COUNT 4.87 10^6/uL (4.00-5.40); WHITE BLOOD COUNT 7.3 10^3/uL (4.0-10.0)
[2023-08-25 14:45] LABS: ABG HCO3 37.3 MMOL/L (22.0-26.0); ABG O2 SATURATION 95.7 % (95.0-99.0); ABG PARTIAL PRESSURE CO2 50.7 mmHg (35.0-45.0); ABG STANDARD HCO3 35.7 MMOL/L. (22.0-26.0); ABG TOTAL CO2 38.8 MMOL/L (23.0-31.0); ABG pH (ARTERIAL) 7.484 UNITS (7.350-7.450)
[2023-08-25 14:58] LABS: CPK CREATINE PHOSPHOKINASE 57 U/L (34-145)
[2023-08-25 15:01] LABS: ALBUMIN 3.4 G/DL (3.2-5.2); ALKALINE PHOSPHATASE 83 U/L (46-116); ALT/SGPT < 9 U/L (7.0-40); AST/SGOT 10 U/L (<34); BILIRUBIN,DIRECT < 0.1 MG/DL (<0.4); BILIRUBIN,TOTAL 0.3 MG/DL (0.3-1.2); BLOOD UREA NITROGEN 14 MG/DL (9-23); CALCIUM LEVEL 9.6 MG/DL (8.3-10.6); CARBON DIOXIDE LEVEL > 40.0 MMOL/L (20-31); CHLORIDE LEVEL 94 MMOL/L (98-107); CK-MB VALUE MASS < 1.0 NG/ML (<3.6); CREATININE FOR GFR 0.55 MG/DL (0.55-1.30); GLOMERULAR FILTRATION RATE > 60.0 (>39); GLUCOSE, FASTING 74 MG/DL (74-106); MB/CK RELATIVE INDEX 1.75 (< OR =4); POTASSIUM SERUM 3.8 MMOL/L (3.5-5.1); SODIUM LEVEL 139 MMOL/L (136-145); THYROID STIMULATING HORMONE 4.871 uIU/ML (0.55-4.78); TOTAL PROTEIN 6.8 G/DL (5.7-8.2)
[2023-08-25] MEDS ORDERED: cefTRIAXone SOD 1 GM in D5W MINI-BAG PLUS 50 ML IV ONE (15:50)
[2023-08-25] MEDS ORDERED: IPRATROPIUM 0.5MG/ALBUTEROL 2.5MG INH SOL UD 3ML (DUONEB) NEB ONE (15:50)
[2023-08-25] MEDS ORDERED: methylPREDNISolone 125MG 2ML VIAL IV ONE (15:50)
[2023-08-25 16:27] VITALS: O2SAT 97
[2023-08-25] MEDS ORDERED: ISOVUE-370 76% 100ML VIAL As Ordered ONE (17:02)
[2023-08-25] MEDS ORDERED: D5W/0.45% SODIUM CHLORIDE 1,000 ML IV SCH (17:25)
[2023-08-25] MEDS ORDERED: ACETAMINOPHEN TAB 650MG DOSE (2X325MG) PO PRN (17:25)
[2023-08-25] MEDS ORDERED: ONDANSETRON 4MG 2ML VIAL IV PRN ×2 (17:25→18:55)
[2023-08-25] MEDS ORDERED: IBUP-1720 PO (17:35)
[2023-08-25] MEDS ORDERED: OXYC1TAB23 PO (17:35)
[2023-08-25] MEDS ORDERED: ASPI81CH33 PO (17:35)
[2023-08-25] MEDS ORDERED: MIRA3350 PO (17:36)
[2023-08-25] MEDS ORDERED: HOME MED LIST COMPLETE! XX SCH (17:40)
[2023-08-25 18:05] LABS: ERYTHROCYTE SEDIMENTATION RATE 49 mm/hr (0-30)
[2023-08-25 18:24] LABS: PROCALCITONIN 0.31 ng/ml
[2023-08-25] MEDS ORDERED: PERCOCET 5MG/325MG TAB PO PRN (18:25)
[2023-08-25] MEDS ORDERED: guaiFENesin SYRUP 200MG 10ML UDC PO PRN (18:25)
[2023-08-25] MEDS ORDERED: ALPRAZolam 0.25 MG TAB PO PRN (18:25)
[2023-08-25 18:43] VITALS: BP 120/79; TEMP 97.4; O2SAT 91; O2SAT 93
[2023-08-25] MEDS: LORazepam 2 MG/ML 1ML VIAL IV PRN (19:54)
[2023-08-25] MEDS: FLUoxetine 20MG CAP PO SCH (19:54)
[2023-08-25] MEDS: IPRATROPIUM 0.5MG/ALBUTEROL 2.5MG INH SOL UD 3ML (DUONEB) NEB PRN (20:03)
[2023-08-25] MEDS: MORPHINE 2 MG/ML 1ML VIAL IV PRN (23:44)
[2023-08-26] MEDS ORDERED: LEVOTHYROXINE 88MCG TABLET (0.088 MG) PO SCH (06:00)
[2023-08-26] MEDS: MORPHINE 2 MG/ML 1ML VIAL IV PRN ×6 (07:38→23:25)
[2023-08-26] MEDS ORDERED: predniSONE 10MG TAB PO SCH (09:00)
[2023-08-26] MEDS ORDERED: IBUPROFEN 200MG TAB PO SCH (09:00)
[2023-08-26] MEDS ORDERED: ENOXAPARIN 40MG/0.4ML SYRINGE (J1650 PER 10MG) SC SCH (09:00)
[2023-08-26] MEDS: IPRATROPIUM 0.5MG/ALBUTEROL 2.5MG INH SOL UD 3ML (DUONEB) NEB PRN (13:03)
[2023-08-26] MEDS: LORazepam 2 MG/ML 1ML VIAL IV PRN ×2 (16:33→18:54)
[2023-08-26] MEDS: FLUoxetine 20MG CAP PO SCH (21:00)
[2023-08-27] MEDS: MORPHINE 2 MG/ML 1ML VIAL IV PRN ×3 (06:06→11:57)
[2023-08-27] MEDS ORDERED: HYOS125TA PO (10:31)
[2023-08-27] MEDS ORDERED: ATIV1TAB10 PO (10:31)
[2023-08-27] MEDS ORDERED: MORP1SOL5 PO (10:31)
== END 2023-08-27 12:09 | disposition home or self-care (01) ==
LOC: M ED 13:13 → M ED INP 13:14 → ENRESERV 17:58 → M PCU 18:34
PROVIDERS: ADMIT Internal Medicine; ATTEND Internal Medicine
DX: R62.7 Adult failure to thrive (principal); R91.8 Other nonspecific abnormal finding of lung field; J91.8 Pleural effusion in other conditions classified elsewhere; J96.01 Acute respiratory failure with hypoxia; J44.9 Chronic obstructive pulmonary disease, unspecified; I10 Essential (primary) hypertension; I25.10 Atherosclerotic heart disease of native coronary artery without angina pectoris; E55.9 Vitamin D deficiency, unspecified; E03.9 Hypothyroidism, unspecified; K21.9 Gastro-esophageal reflux disease without esophagitis; E78.5 Hyperlipidemia, unspecified; F41.9 Anxiety disorder, unspecified; Z85.118 Personal history of other malignant neoplasm of bronchus and lung; Z82.3 Family history of stroke; Z92.21 Personal history of antineoplastic chemotherapy; Z79.899 Other long term (current) drug therapy; Z88.2 Allergy status to sulfonamides
CPT/HCPCS: 71046; 71275; 74177; 80048; 80076; 81001; 82550; 82553; 82803; 83880; 84145; 84443; 84484; 85025; 85652; 86140; 87486; 87581; 87633; 87798; 93005; 93041; 94640; 94760; 96365; 96375; 96376; 99285; G0378; J0696; J2060; J2405; J2930; Q9967